=== PATIENT | female | born 1970 | race Caucasian/White ===

== ENCOUNTER 2020-06-20 08:06 | Emergency (ER) | payer SELFPAY ==
--- OUTSIDE RECORDS SUMMARY | 2020-06-20 08:30 | XMS REPORT | Clinical Summary ---
:1970 Author Organization [facility] Address [address] [place] [address] Care Team Providers Name Role Phone Baron Alejandre MD Primary Care Provider Allergies No Known Allergies Medications No known medications Active Problems Problem Noted Date Herniated nucleus pulposus 11/18/2017 Cervical stenosis of spine 11/18/2017 Herniated nucleus pulposus, cervical 11/17/2017 Cervical stenosis of spinal canal 11/17/2017 Immunizations Name Dates Previously Given Next Due Influenza Three-TIV PF 5+ YR 11/18/2017 Social History Tobacco Use Types Packs/Day Years Used Date Never Smoker Smokeless Tobacco: Never Used Alcohol Use Drinks/Week oz/Week Comments Yes 1 Glasses of wine 0.6 rare Sex Assigned at Date Recorded Not on file Job Start Date Occupation Industry Not on file Not on file Not on file Travel History Travel Start Travel End No recent travel history available. Last Filed Vital Signs Not on file Plan of Treatment Not on file Implants Implanted Type Area Home Health Aid Device Shelf Model / Identifier Expiration Serial / Date Lot Flseal Vhsd Full Strlprep 10ml [id number] - [id number] Cement/Fi Spine SWANSON:BIOSCI 01/07/2019 [id number] / Implanted: Qty: 1 on 11/17/2017 by Dilip Branham MD lle r/Adhe Cervical / sive [id number] Bone Grft Vitoss Ba2x 2.5cc - [id number] Cement/Fi Spine ORTHOVITA 10/27/2018 [id number] / Implanted: Qty: 1 on 11/17/2017 by Dilip Branham MD lle r/Adhe Cervical / sive [id number] Tritanium C Height 7mm Spine Spine RADHA SPINE 12/2021 [id number] / Implanted: Qty: 1 on 11/17/2017 by Dilip Branham MD Cervical / [id number] Tritanium C Height 6mm Spine Spine RADHA SPINE 10/2022 [id number] / Implanted: Qty: 1 on 11/17/2017 by Dilip Branham MD Cervical / [id number] Tritanium C Height 7mm Spine Spine RADHA SPINE [id number] / Implanted: Qty: 1 on 11/17/2017 by Dilip Branham MD Cervical / [id number] Plt Aviator 51mm 3 Level [id number] - [id number] Spine Spine STRY KER:RADHA [id number] / Implanted: Qty: 1 on 11/17/2017 by Dilip Branham MD Cervical SPINE / Scr Sd 14mm [id number] - [id number] Spine Spine RADHA:RAHDA [id number] / Implanted: Qty: 8 on 11/17/2017 by Dilip Branham MD Cervical ORTHOPAEDICS / Results Not on fileafter 06/20/2019 Insurance Payer Benefit Plan / Group Subscriber ID Type Phone [facility] CHOICE xxxxxxxxxxxx HMO/POS [id number] [phone] CHOICE EXCHANGE (Home) [address] [place] [id number] Advance Directives For more information, please contact:[address] [phone] Code Status Date Activated Date Inactivated Comments Full Code 11/17/2017 8:10 PM 11/18/2017 4:51 PM This code status was determined by: Patient
--- OUTSIDE RECORDS SUMMARY | 2020-06-20 08:31 | XMS REPORT | Continuity of Care Document ---
:1970 Author Organization [facility] t Address [address] [place] [address] Care Team Providers Name Role Phone Baron Alejandre MD Primary Care Physician Singer FARLEY Attending Clinician YOSSI LUEVANO Attending Clinician Unavailable YOSSI LUEVANO Admitting Clinician Unavailable Payers Payer Name Policy Type Policy Number Effective Date Expiration Date S ource Problems Condition Condition Condition Status Onset Resolution Last Treating Co mments Source Name Details Category Date Date Treatment Clinician Date Herniated Herniated Disease Active 2016-[address] [facility] Cervical Cervical Disease [facility] spine [facility] 00 Center Herniated Herniated Disease Active 2016-[address] [facility] nucleus nucleus 2-19 [facility] pulposus, pulposus, 00:[facility]: [facility]i hilario cervical cervical 00 Center Cervical Cervical Disease [facility] spinal of spinal 00:00: Medi hilario canal canal 00 Center Allergies, Adverse Reactions, Alerts Allergy Allergy Status Severity Reaction(s) Onset Inactive Treating Comm ents Source Name Type Date Date Clinician No Known DA Active [facility] 03-28 [facility] 00:00: Suzanne 00 [facility] Social History Social Habit Start Date Stop Date Quantity Comments Source Sex Assigned At [facility] Alcohol Comment 2017-10-30 2017-10-30 rare [facility] - 00:00:00 00:00:00 [facility] Smoking Status Start Date Stop Date Source Never smoker [facility] Medications This patient has no known medications. Immunizations Ordered Immunization Filled Immunization Date Status Commen ts Source Name Name Influenza Three-TIV 2017-11-18 Completed [facility] t [facility] - PF 5+ YR 00:00:00 [facility] Procedures This patient has no known procedures. Encounters Start End Encounter Admission Attending Care Care Encounter Source Date/Time Date/Time Type Type Clinicians Facility Department ID 2020-05-30 2020-05-30 Emergency [facility] [id number] 07:29:53 09:55:00 Andres Hanson [id number] [place] [id number] [place] [id number] Results Test Description Test Time Test Comments Results Result Comments Source UA RFLX MICROSCOPIC CULTURE 2019-03-28 14:29:00 Test Item Value Reference Range Interpretation Comme nts UA COLOR (test code = COLU) YELLOW YELLOW UA APPEARANCE (test code = HAZY CLEAR APPU) UA GLUCOSE DIPSTICK (test NEGATIVE mg/dL NEGATIVE code = DGLUU) UA BILIRUBIN DIPSTICK (test 1+ NEGATIVE A Not able to rule out false code = BILU) positive; No co nfirmatory test. UA KETONE DIPSTICK (test 5 mg/dL NEGATIVE A code = KETU) UA SPECIFIC GRAVITY (test 1.025 1.001-1.035 N code = SGU) UA BLOOD DIPSTICK (test code 3+ NEGATIVE A = GURPREET) UA PH DIPSTICK (test code = 5.0 5.5-7.0 L CHEN) UA PROTEIN DIPSTICK (test 25 mg/dL NEGATIVE A code = PROU) UA UROBILINOGEN DIPSTICK 1.0 mg/dL NORMAL (test code = URO) UA NITRITE DIPSTICK (test NEGATIVE NEGATIVE code = ЮЛИЯ) UA LEUKOCYTE ESTERASE 2+ NEGATIVE A DIPSTICK (test code = LEUU) UA COMMENT (test code = VOLUME 10-12 ML COMU) URINE SPECIMEN DESCRIPTION Clean Catch (test code = UASPEC) UA WBC (test code = WBCU) 10 - 20 #/hpf <10 A UA SQUAMOUS CELLS (test code 0 - 20 #/lpf <100 = SQU) UA CULTURE NEEDED? (test Criteria met code = UACULT) UA [id number] 14:29:00 Test Item Value Reference Range Interpretation Comments UA RBC (test code = RBCU) 2-5 #/hpf NONE SEEN A UA BACTERIA (test code = BACU) 1+ #/hpf NONE SEEN - US ABDOMEN [id number] 14:28:00 Patient Name: ROLANDO GARCIA Unit No: [id number] EXAMS: CPT CODE: [id number] US ABDOMEN LTD [id number] - US ABDOMEN LTD 03/28/2019 1:32 PM ULTRASOUND OF THE GALLBLADDER: Multiple images of the gallbladder were obtained. The gallbladder is well distended and has anormal wall thickness. There is no evidence of gallstones, sludge or pericholecystic fluid. Common bile duct measures 6 mm. The visualized liver, pancreas and right kidney are unremarkable. IMPRESSION: Normal gallbladder ultrasound. at 1428 Reported and signed by:Jaylen Ni MD CC: Jude Perkins MD Technologist: Franklin Ford Trnscrbd D/ (1425) [email or web address] Orig Print D/T: S: 03/28/2019 ([id number]) Probe: [facility] NAME: ROLANDO GARCIA [address] PHYS: [place] [address] : 1970 AGE:48 SEX: F LOC: [place]ONICA PHONE #: [phone] EXAM DATE: 03/28/2019 STATUS: REG ER FAX #: RAD NO: Page 1 Signed ReportCOMPREHENSIVE METABOLIC [id number] 14:21:00 Test Item Value Reference Range Interpretation Comments SODIUM (test code = 141 MMOL/L 133-145 N NA) POTASSIUM (test code = 3.8 MMOL/L 3.6-5.2 N K) CHLORIDE (test code = 104 MMOL/L 100-108 N CL) CARBON DIOXIDE (test 30 MMOL/L 22-32 N code = CO2) GLUCOSE (test code = 91 MG/DL 65-99 N Results of this assay GLU) method may be f alsely depressed orele vated if patient is t aking sulfasalazine. BLOOD UREA NITROGEN 16 MG/DL 6-20 N (test code = BUN) GLOMERULAR FILTRATION 75 58-135 N Report ing units: RATE (test code = GFR) mL/mi n/1.73m\\S\\2 (Modified MDRD Formula) CREATININE (test code 0.81 MG/DL 0.60-1.00 N = CREAT) TOTAL PROTEIN (test 7.7 G/DL 6.4-8.2 N code = PROT) ALBUMIN (test code = 4.2 G/DL 3.4-5.0 N ALB) GLOBULIN (test code = 3.5 G/DL 1.5-3.8 N GLOB) ALBUMIN/GLOBULIN RATIO 1.2 1.1-2.2 N (test code = A/G) CALCIUM (test code = 9.1 MG/DL 8.7-10.5 N CA) BILIRUBIN TOTAL (test 0.5 MG/DL 0.0-1.0 N code = BILT) SGOT/AST (test code = 29 Units/L 15-37 N Result s of this assay AST) method may be f alsely depressed orele vated if patient is t aking sulfasalazine. SGPT/ALT (test code = 62 Units/L 30-65 N Result s of this assay ALT) method may be f alsely depressed orele vated if patient is t aking sulfasalazine. ALKALINE PHOSPHATASE 86 Units/L 50-136 N TOTAL (test code = ALKP) [id number] 14:21:00 Test Item Value Reference Range Interpretation Comments LIPASE (test code = LIP) 224 Units/L 73-393 N HCG SERUM [id number] 14:19:00 Test Item Value Reference Range Interpretation Comments HCG SERUM QUAL NEGATIVE NEGATIVE False negativ es may occur (test code = when levels of hCGare below HCGQL) 10 mIU/ml. When is still suspec laury, a new specimenshould be obtained after 48 hours and re-tested.If wa iting 48 hours is not me dically advisable,the t est result should be confi rmed using aquantitative h CG assay. UA RFLX MICROSCOPIC [id number] 14:12:00 Test Item Value Reference Range Interpretation Comments UA COLOR (test code YELLOW YELLOW = COLU) UA APPEARANCE (test HAZY CLEAR code = APPU) UA GLUCOSE DIPSTICK NEGATIVE mg/dL NEGATIVE (test code = DGLUU) UA BILIRUBIN 1+ NEGATIVE A Not able to rul e DIPSTICK (test code out fals e positive; = BILU) No confirmatory test. UA KETONE DIPSTICK 5 mg/dL NEGATIVE A (test code = KETU) UA SPECIFIC GRAVITY 1.025 1.001-1.035 N (test code = SGU) UA BLOOD DIPSTICK 3+ NEGATIVE A (test code = GURPREET) UA PH DIPSTICK (test 5.0 5.5-7.0 L code = CHEN) UA PROTEIN DIPSTICK 25 mg/dL NEGATIVE A (test code = PROU) UA UROBILINOGEN 1.0 mg/dL NORMAL DIPSTICK (test code = URO) UA NITRITE DIPSTICK NEGATIVE NEGATIVE (test code = ЮЛИЯ) UA LEUKOCYTE 2+ NEGATIVE A ESTERASE DIPSTICK (test code = LEUU) UA COMMENT (test VOLUME 10-12 ML code = COMU) URINE SPECIMEN Clean Catch DESCRIPTION (test code = UASPEC) UA WBC (test code = #/hpf <10 WBCU) UA SQUAMOUS CELLS #/lpf <100 (test code = SQU) UA CULTURE NEEDED? (test code = UACULT) UA [id number] 14:12:00 Test Item Value Reference Range Interpretation Comments UA RBC (test code = RBCU) #/hpf NONE SEEN UA RFLX MICROSCOPIC [id number] 14:12:00 Test Item Value Reference Range Interpretation Comments UA COLOR (test code YELLOW YELLOW = COLU) UA APPEARANCE (test HAZY CLEAR code = APPU) UA GLUCOSE DIPSTICK NEGATIVE mg/dL NEGATIVE (test code = DGLUU) UA BILIRUBIN 1+ NEGATIVE A Not able to rul e DIPSTICK (test code out fals e positive; = BILU) No confirmatory test. UA KETONE DIPSTICK 5 mg/dL NEGATIVE A (test code = KETU) UA SPECIFIC GRAVITY 1.025 1.001-1.035 N (test code = SGU) UA BLOOD DIPSTICK 3+ NEGATIVE A (test code = GURPREET) UA PH DIPSTICK (test 5.0 5.5-7.0 L code = CHEN) UA PROTEIN DIPSTICK 25 mg/dL NEGATIVE A (test code = PROU) UA UROBILINOGEN 1.0 mg/dL NORMAL DIPSTICK (test code = URO) UA NITRITE DIPSTICK NEGATIVE NEGATIVE (test code = ЮЛИЯ) UA LEUKOCYTE 2+ NEGATIVE A ESTERASE DIPSTICK (test code = LEUU) UA COMMENT (test VOLUME 10-12 ML code = COMU) URINE SPECIMEN Clean Catch DESCRIPTION (test code = UASPEC) UA WBC (test code = #/hpf <10 WBCU) UA SQUAMOUS CELLS #/lpf <100 (test code = SQU) UA CULTURE NEEDED? (test code = UACULT) UA [id number] 14:12:00 Test Item Value Reference Range Interpretation Comments UA RBC (test code = RBCU) #/hpf NONE SEEN CBC W/AUTO [id number] 14:11:00 Test Item Value Reference Range Interpretation Comments WHITE BLOOD CELL (test code = 6.22 x10 3/uL 4.80-10.80 N WBC) RED BLOOD CELL (test code = 5.00 x10 6/uL 4.2-5.4 N RBC) HEMOGLOBIN (test code = HGB) 14.5 G/DL 12.0-16.0 N HEMATOCRIT (test code = HCT) 44.9 % 37-47 N MEAN CELL VOLUME (test code = 89.8 FL 81-99 N MCV) MEAN CELL HGB (test code = MCH) 29.0 PG 27-31 N MEAN CELL HGB CONCENTRATION 32.3 G/DL 33-37 L (test code = MCHC) RED CELL DISTRIBUTION WIDTH 13.0 % 11.5-14.5 N (test code = RDW) PLATELET COUNT (test code = 262 x10 3/uL 150-450 N PLT) MEAN PLATELET VOLUME (test code 10.5 FL 7.4-10.4 H = MPV) NEUTROPHIL % (test code = NT%) 52.9 % 42-86 N IMMATURE GRANULOCYTE % (test 0.3 % 0.0-2.0 N code = IG%) LYMPHOCYTE % (test code = LY%) 37.3 % 24-44 N MONOCYTE % (test code = MO%) 7.1 % 0.0-4.0 H EOSINOPHIL % (test code = EO%) 1.6 % 0.0-2.7 N BASOPHIL % (test code = BA%) 0.8 % 0.0-0.5 H NUCLEATED RBC % (test code = 0.0 % 0.0-0.0 N NRBC%) NEUTROPHIL # (test code = NT#) 3.29 x10 3/uL 1.8-7.7 N IMMATURE GRANULOCYTE # (test 0.02 x10 3/uL 0.00-0.03 N code = IG#) LYMPHOCYTE # (test code = LY#) 2.32 x10 3/uL 1.0-4.8 N MONOCYTE # (test code = MO#) 0.44 x10 3/uL 0.0-0.8 N EOSINOPHIL # (test code = EO#) 0.10 x10 3/uL 0.0-0.5 N BASOPHIL # (test code = BA#) 0.05 x10 3/uL 0.0-0.2 N NUCLEATED RBC # (test code = 0.0 X10 3/uL 0.0-0.2 N NRBC#) TISSUE [id number] 15:56:00Surgical Pathology Report Case: [id number] Authorizing Provider: Dilip Luevano MD Collected: 11/17/2017 1351 Ordering Location: [facility] Received: 11/17/2017 1431 SERVICES Pathologist: Randy Barroso MD Specimen: Disc C3-4, DISC FROM C3-6 VERTEBRAL COLUMN,INTERVERTEBRAL DISCS, C3- 6, DISCECTOMIES:FRAGMENTS OF FIBROCARTILAGE WITH MILD DEGENERATIVE CHANGES Signing Pathologist Direct Phone Line: [phone] signed by Randy Barroso MD on 11/19/2017 at 3:56 [id number]; [id number] nucleus pulposus of cervix. Cervical myelopathyDisc C3-4 and C3-6The specimen is received in saline labeled with the patient's information and labeled "disc C3-4 and C3-6" and consists of small portions of off white fibrocartilaginous tissue measuring 1 x 1 x 0.3 cm in aggregate. Submitted entirely A1 for decalcification. CG/pl PerformedNP, NEURO INTRAOPERATIVE [id number] 10:49:00Reason for exam:->cervical stenosisINTRAOPERATIVE MONITORING REPORT Patient Name: Rolando Garcia [facility] Surgery Date: 11/17/17 [place] Pro: [id number] Monitoring began at 11:19 and ended at 14:30 Surgeon: Dilip Luevano M.D. Examining Physician : Sheba Wooten M.D. Monitoring Technologist: KRISTA Krishna Procedure: ACDF C3-C6 Stimulation Parameters: Ulnar nerves individuallystimulated at the wrist Rate 3.63Hz, Intensity 30A, Duration 0.3ms Posterior Tibial nerves individually stimulated at the ankle Rate 3.63Hz, Intensity 60mA, Duration 0.3ms Filters 30-500Hz, Notch Off Recording Parameters: CV, CP3, CP4, CPz, and FPzFree-running EEG recorded with bipolar derivation, using modified International 10/20 placements: C3-FPZ, C4- FPZ Description: Intraoperative neurophysiological monitoring was performed using a combination of upper and lower extremity somatosensory evoked potentials, Free-running EEGs. A real-time connection with the examining neurologist was established and maintained throughout the operative procedure by the monitoring technologist. Upper extremity somatosensory evoked potentials were recorded centrally at the cervical and cortical levels following ulnar nerve stimulation. Lower extremity somatosensory evoked potentials were recorded centrally at the cervical and cortical levels following posterior tibial stimulation at the ankle. SSEP baselines were established and monitored throughout the duration of the procedure. At closing, responses were judged to be essentially unchanged from those of post-positioning baselines. Surgeon was aware of all responses in real-time. Free-running EEG remained symmetrical throughout the procedure with no focal changes noted to occur. Conclusion: These results suggest the absence of untoward, secondary effects on the posterior column function as a consequence of this surgical procedure. Sheba Wooten M.D.M50.0,M50.20 BASIC METABOLIC [id number] 08:26:00 Test Item Value Reference Range Interpretation Comments SODIUM (BEAKER) 134 meq/L 136-145 L (test code = 381) POTASSIUM (BEAKER) 3.7 meq/L 3.5-5.1 (test code = 379) CHLORIDE (BEAKER) 104 meq/L 98-107 (test code = 382) CO2 (BEAKER) (test 22 meq/L 22-29 code = 355) BLOOD UREA NITROGEN 10 mg/dL 7-21 (BEAKER) (test code = 354) CREATININE (BEAKER) 0.74 mg/dL 0.57-1.25 (test code = 358) GLUCOSE RANDOM 110 mg/dL 70-105 H (BEAKER) (test code = 652) CALCIUM (BEAKER) 8.5 mg/dL 8.4-10.2 (test code = 697) EGFR (BEAKER) (test 84 mL/min/1.73 ESTIMA LAURY GFR IS code = 1092) sq m NOT ACCURATE CREATININE CLEARANCE IN PREDICTING GLOMERULAR FILTRATION RATE . ESTIMATED GFR I S NOT APPLICABLE FOR DIALYSIS PATIEN TS. CBC W/PLT COUNT & AUTO [id number] 08:11:00 Test Item Value Reference Range Interpretation Comments WHITE BLOOD CELL COUNT (BEAKER) 10.4 K/ L 3.5-10.5 (test code = 775) RED BLOOD CELL COUNT (BEAKER) 4.37 M/ L 3.93-5.22 (test code = 761) HEMOGLOBIN (BEAKER) (test code = 12.5 GM/DL 11.2-15.7 410) HEMATOCRIT (BEAKER) (test code = 38.6 % 34.1-44.9 411) MEAN CORPUSCULAR VOLUME (BEAKER) 88.3 fL 79.4-94.8 (test code = 753) MEAN CORPUSCULAR HEMOGLOBIN 28.6 pg 25.6-32.2 (BEAKER) (test code = 751) MEAN CORPUSCULAR HEMOGLOBIN CONC 32.4 GM/DL 32.2-35.5 (BEAKER) (test code = 752) RED CELL DISTRIBUTION WIDTH 13.1 % 11.7-14.4 (BEAKER) (test code = 412) PLATELET COUNT (BEAKER) (test 220 K/CU MM 150-450 code = 756) MEAN PLATELET VOLUME (BEAKER) 11.1 fL 9.4-12.3 (test code = 754) NUCLEATED RED BLOOD CELLS 0 /100 WBC 0-0 (BEAKER) (test code = 413) NEUTROPHILS RELATIVE PERCENT 78 % (BEAKER) (test code = 429) LYMPHOCYTES RELATIVE PERCENT 15 % (BEAKER) (test code = 430) MONOCYTES RELATIVE PERCENT 7 % (BEAKER) (test code = 431) EOSINOPHILS RELATIVE PERCENT 0 % (BEAKER) (test code = 432) BASOPHILS RELATIVE PERCENT 0 % (BEAKER) (test code = 437) NEUTROPHILS ABSOLUTE COUNT 8.09 K/ L 1.56-6.13 H (BEAKER) (test code = 670) LYMPHOCYTES ABSOLUTE COUNT 1.58 K/ L 1.18-3.74 (BEAKER) (test code = 414) MONOCYTES ABSOLUTE COUNT (BEAKER) 0.69 K/ L 0.24-0.36 H (test code = 415) EOSINOPHILS ABSOLUTE COUNT 0.00 K/ L 0.04-0.36 L (BEAKER) (test code = 416) BASOPHILS ABSOLUTE COUNT (BEAKER) 0.01 K/ L 0.01-0.08 (test code = 417) IMMATURE GRANULOCYTES-RELATIVE 0 % 0-1 PERCENT (BEAKER) (test code = 2801) [place], PERSONAL LINES INSURANCE AGENT IN OR/30 MINUTE [id number] 14:09:00Reason for exam:- >cervical stenosisFINAL REPORT History: Cervical stenosis COMPARISON: None DISCUSSION: A total of 3 intraoperative images were submitted for interpretation. Neither was a radiologist present nor requested during the procedure. The findings should be correlated with intraprocedural observations. The images were presented for interpretation following completion of the examination. This is a nondiagnostic examination. The images demonstrate fixation of the C3-C6 levels anteriorly with plate and screws as well as a spacer material at the C3-4, C4-5 and C5-6 levels. Findings should be correlated with intraprocedural observations. The total fluoroscopy time was 0.0 minutes . A total of 3 static images were acquired. Signed: Alli Silva MDReport Verified Date/Time: 11/17/2017 14:09:04 Reading Location: [facility] C013 Consult Reading Room [place], PERSONAL LINES INSURANCE AGENT IN OR/30 MINUTE [id number] 12:28:00Reason for exam:- >cervical stenosisFINAL REPORT INDICATION: Cervical stenosis. COMPARISON: None available. IMPRESSION: A single fluoroscopic localization image of the cervical spine was provided. A surgical screw projects over the C4 vertebral body. Findings were reported to Dr. Luevano in OR 9 at 12:27 PM. The surgeon agrees with these findings. Fluoroscopy was not performed by the undersigned radiologist. Fluoroscopy dose: 0.177 mGy, 0.0453 Gy.cm2, 1 image Signed: Minal Osborneport Verified Date/Time: 11/17/2017 12:28:12 Reading Location: [facility] Radiology Reading Room [id number] 12:00:00 Test Item Value Reference Range Interpretation Comments PROTIME (BEAKER) (test code = 12.9 seconds 11.7-14.7 759) INR (BEAKER) (test code = 370) 1.0 <=5.9 PARTIAL THROMBOPLASTIN TIME 32.4 seconds 22.5-36.0 (BEAKER) (test code = 760) RECOMMENDED COUMADIN/WARFARIN INR THERAPY RANGESSTANDARD DOSE: 2.0 - 3.0 Includes: PROPHYLAXIS forvenous thrombosis, systemic embolization; TREATMENT for venous thrombosis and/or pulmonary embolus.HIGH RISK: Target INR is 2.5-3.5 for patients with mechanical heart valves.BASIC METABOLIC [id number] 11:59:00 Test Item Value Reference Range Interpretation Comments SODIUM (BEAKER) 139 meq/L 136-145 (test code = 381) POTASSIUM (BEAKER) 3.9 meq/L 3.5-5.1 (test code = 379) CHLORIDE (BEAKER) 106 meq/L 98-107 (test code = 382) CO2 (BEAKER) (test 28 meq/L 22-29 code = 355) BLOOD UREA NITROGEN 11 mg/dL 7-21 (BEAKER) (test code = 354) CREATININE (BEAKER) 0.71 mg/dL 0.57-1.25 (test code = 358) GLUCOSE RANDOM 88 mg/dL 70-105 (BEAKER) (test code = 652) CALCIUM (BEAKER) 9.1 mg/dL 8.4-10.2 (test code = 697) EGFR (BEAKER) (test 88 mL/min/1.73 ESTIMA LAURY GFR IS code = 1092) sq m NOT ACCURATE CREATININE CLEARANCE IN PREDICTING GLOMERULAR FILTRATION RATE . ESTIMATED GFR I S NOT APPLICABLE FOR DIALYSIS PATIEN TS. URINALYSIS W/ REFLEX URINE [id number] 11:55:00 Test Item Value Reference Range Interpretation Comments COLOR (BEAKER) (test code = 470) Yellow CLARITY (BEAKER) (test code = 469) Hazy SPECIFIC GRAVITY UA (BEAKER) (test 1.017 1.001-1.035 code = 468) PH UA (BEAKER) (test code = 467) 6.0 5.0-8.0 PROTEIN UA (BEAKER) (test code = 20 mg/dL Negative A 464) GLUCOSE UA (BEAKER) (test code = Negative Negative 365) KETONES UA (BEAKER) (test code = Negative Negative 371) BILIRUBIN UA (BEAKER) (test code = Negative Negative 462) BLOOD UA (BEAKER) (test code = 461) Negative Negative NITRITE UA (BEAKER) (test code = Negative Negative 465) LEUKOCYTE ESTERASE UA (BEAKER) Negative Negative (test code = 466) UROBILINOGEN UA (BEAKER) (test code 0.2 mg/dL 0.2-1.0 = 463) RBC UA (BEAKER) (test code = 519) 2 /HPF WBC UA (BEAKER) (test code = 520) 1 /HPF BACTERIA (BEAKER) (test code = 517) Rare MUCUS (BEAKER) (test code = 1574) Many SQUAMOUS EPITHELIAL (BEAKER) (test 8 /HPF code = 516) SOURCE(BEAKER) (test code = 2795) CBC W/PLT COUNT & AUTO [id number] 11:45:00 Test Item Value Reference Range Interpretation Comments WHITE BLOOD CELL COUNT (BEAKER) 4.4 K/ L 3.5-10.5 (test code = 775) RED BLOOD CELL COUNT (BEAKER) 4.84 M/ L 3.93-5.22 (test code = 761) HEMOGLOBIN (BEAKER) (test code = 13.7 GM/DL 11.2-15.7 410) HEMATOCRIT (BEAKER) (test code = 42.5 % 34.1-44.9 411) MEAN CORPUSCULAR VOLUME (BEAKER) 87.8 fL 79.4-94.8 (test code = 753) MEAN CORPUSCULAR HEMOGLOBIN 28.3 pg 25.6-32.2 (BEAKER) (test code = 751) MEAN CORPUSCULAR HEMOGLOBIN CONC 32.2 GM/DL 32.2-35.5 (BEAKER) (test code = 752) RED CELL DISTRIBUTION WIDTH 12.8 % 11.7-14.4 (BEAKER) (test code = 412) PLATELET COUNT (BEAKER) (test 237 K/CU MM 150-450 code = 756) MEAN PLATELET VOLUME (BEAKER) 10.9 fL 9.4-12.3 (test code = 754) NUCLEATED RED BLOOD CELLS 0 /100 WBC 0-0 (BEAKER) (test code = 413) NEUTROPHILS RELATIVE PERCENT 49 % (BEAKER) (test code = 429) LYMPHOCYTES RELATIVE PERCENT 41 % (BEAKER) (test code = 430) MONOCYTES RELATIVE PERCENT 6 % (BEAKER) (test code = 431) EOSINOPHILS RELATIVE PERCENT 3 % (BEAKER) (test code = 432) BASOPHILS RELATIVE PERCENT 1 % (BEAKER) (test code = 437) NEUTROPHILS ABSOLUTE COUNT 2.16 K/ L 1.56-6.13 (BEAKER) (test code = 670) LYMPHOCYTES ABSOLUTE COUNT 1.84 K/ L 1.18-3.74 (BEAKER) (test code = 414) MONOCYTES ABSOLUTE COUNT (BEAKER) 0.26 K/ L 0.24-0.36 (test code = 415) EOSINOPHILS ABSOLUTE COUNT 0.13 K/ L 0.04-0.36 (BEAKER) (test code = 416) BASOPHILS ABSOLUTE COUNT (BEAKER) 0.04 K/ L 0.01-0.08 (test code = 417) IMMATURE GRANULOCYTES-RELATIVE 0 % 0-1 PERCENT (BEAKER) (test code = 2801) RAD, CHEST, 2 [id number] 11:44:00Reason for Exam:->pre opFINAL REPORT History provided: Preoperative assessment CHEST PA AND LATERAL: Normal cardiomediastinal silhouette. Lungs are fully expanded and clear. CONCLUSION: Normal two-view chest examination. Signed: Amber Lares Verified Date/Time: 10/30/2017 11:44:26 Reading Location: [facility] Diagnostic Imaging Reading Room - [facility] 1.310.12
--- OUTSIDE RECORDS SUMMARY | 2020-06-20 08:32 | XMS REPORT | Summary of Care ---
:1970 Author Organization [facility] - [facility] Address [address] [place] [id number] Care Team Providers Name Role Phone Pcp, Patient Does Not Have A Primary Care Provider +[id number] Reason for Referral MRI/CAT Scan (STAT) Status Reason Specialty Diagnoses / Referred By Referred To Procedures Contact Contact New Request Diagnostic Diagnoses Upper abdominal pain Andres Rodríguez, Radiology Procedures CT ABDOMEN PELVIS W CONTRAST DO [address] [place] [address] [place] [id number] Reason for Visit Reason Comments Abdominal Pain Auth/Cert Status Reason Specialty Diagnoses / Referred By Referred To Procedures Contact Contact Emergency Medicine Diagnoses ABD PAIN [facility] [address] [place] [phone] Fax: Encounter Details Date Type Department Care Team Description 05/30/2020 Emergency [facility]-Emergency Andres Rodríguez DO Upper abdominal pain (Primary Dx); Department [address] [place] [address] Epigastric pain; [address] [place] [address] RT [address] [place] [address] [place] [address] [phone] Allergies No Known Allergiesdocumented as of this encounter (statuses as of 05/30/2020) Medications Medication Sig Dispensed Refills Start Date End Date Status sucralfate 1 gram Take 1 tablet by 30 tablet 0 05/30/2020 Active tabletIndications: mouth before Epigastric pain meals and at bedtime. dicyclomine (BENTYL) Take 1 capsule 30 capsule 0 05/30/2020 Active 10 mg by mouth every 8 capsuleIndications: (eight) hours as Epigastric pain needed for Abdominal pain. ondansetron 4 mg Take 1 tablet by 20 tablet 0 05/30/2020 Active disintegrating mouth every 8 tabletIndications: (eight) hours as Epigastric pain needed for Nausea and Vomiting (N/V). omeprazole 20 mg Take 1 capsule 30 capsule 0 05/30/20202019 Active capsuleIndications: by mouth daily Epigastric pain for 30 days. documented as of this encounter (statuses as of 05/30/2020) Active Problems No known active problemsdocumented as of this encounter (statuses as of 05/30/2020) Social History Tobacco Use Types Packs/Day Years Used Date Never Assessed Sex Assigned at Date Recorded Not on file Job Start Date Occupation Industry Not on file Not on file Not on file Travel History Travel Start Travel End No recent travel history available. COVID-19 Exposure Response Date Recorded In the last month, have you been in contact with No / Unsure 05/30/2020 7:24 AM CDT someone who was confirmed or suspected to have Coronavirus / COVID-19? documented as of this encounter Last Filed Vital Signs Vital Sign Reading Time Taken Comments Blood Pressure 129/80 05/30/2020 9:00 AM CDT Pulse 62 05/30/2020 9:00 AM CDT Temperature 36.7 C (98 F) 05/30/2020 7:26 AM CDT Respiratory Rate 12 05/30/2020 9:00 AM CDT Oxygen Saturation 97% 05/30/2020 9:00 AM CDT Inhaled Oxygen Concentration - - Weight 81.6 kg (180 lb) 05/30/2020 7:26 AM CDT Height 162.6 cm (5' 4") 05/30/2020 7:26 AM CDT Body Mass Index 30.9 05/30/2020 7:26 AM CDT documented in this encounter Discharge Instructions AttachmentsThe following attachments cannot be sent through Care Everywhere. Peptic Ulcer Disease (All Causes) (Malagasy)documented in this encounter Plan of Treatment Health Maintenance Due Date Last Done Comments DTaP,Tdap,and Td Vaccines (1 - 1980 Tdap) Depression Screening 1981 PAP SMEAR 1990 Breast Cancer Screening 2009 (MAMMOGRAM) COLONOSCOPY 2019 Zoster Recombinant Vaccine 2019 (SHINGRIX) (1 of 2) INFLUENZA VACCINE (#1) 2020 PNEUMOCOCCAL 0-64 YEARS COMBINED Aged Out No longer eligible based on SERIES patient's age to complete this topic documented as of this encounter Procedures Procedure Name Priority Date/Time Associated Comments Diagnosis CT ABDOMEN PELVIS W STAT 05/30/2020 8:49 Upper abdominal R esults for this CONTRAST AM CDT pain procedure are i n the results section. CBC WITH DIFFERENTIAL STAT 05/30/2020 7:56 Upper abdominal Results for this AM CDT pain procedure are i n the results section. URINALYSIS STAT 05/30/2020 7:56 Upper abdominal Results for this AM CDT pain procedure are i n the results section. CBC WITH DIFFERENTIAL STAT 05/30/2020 7:56 Upper abdominal Results for this AM CDT pain procedure are i n the results section. COMP. METABOLIC PANEL STAT 05/30/2020 7:56 Upper abdominal Results for this (40664) AM CDT pain procedure are i n the results section. LIPASE STAT 05/30/2020 7:56 Upper abdominal Results for this AM CDT pain procedure are i n the results section. documented in this encounter Results CT ABDOMEN PELVIS W CONTRAST (05/30/2020 8:49 AM CDT) Specimen Narrative Performed At CT Abdomen and Pelvis with intravenous c ontrast. PACS/VR/DOSE CLINICAL HISTORY: Generalized abdominal pain. DOSE: Up-to-date CT equipment and radiation dose reduc tion techniques were employed. CTDIvol: 9.18 mGy. DLP: 471 mGy-cm. TECHNIQUE : Contiguous axial imaging fro m the level of the lung bases through the pubic symphysis were perform ed after the uncomplicated administration of Omnipaque contrast mat erial. Coronal and sagittal reconstructions were obtained. Auto mA and/or iterativ e reconstruction were used to reduce radiation dose. FINDINGS: No prior study available for c omparison. Lower lungs: Clear. No pleural effusion or pericardial effusion. No definite evidence of hiatal hernia. Bila teral breast augmentation prosthesis are partially visualized. Liver, Gallbladder and Spleen: Normal. No gallstones v isualized. Liver is approximately 15.7 cm in length and sple en measures approximately 10.5 x 4.5 cm. Biliary ducts and the pancreatic duct appear of normal size. Peritoneum: No free air or free fluid. No lymphadenopathy. Pancreas and Adrenals: Unremarkable pa ncreas and adrenal glands. Kidneys and Ureters: No visible calculi in the renal collecting systems. No hydroureter or hydronephrosis. 9 mm l ow density lesion in the dorsal cortex at interpolar region of the right kidney and another 9 mm lesion along the lateral cortex near the lower pole of the right kidney noted, consistent with possibility of small inc idental renal cysts. Vessels: Normal. Retroperitoneum: No abnormal fluid or ly mphadenopathy. Bowel: No acute findings. Normal appendi x is visualized. Small bowel gas pattern is unremarkable. Bladder and Reproductive Organs: Grossly unremarkable poorly distended unopacified urinary bladder. Heterogeneously enhancing lesion of 18 mm size noted in the anterior wall of the body o f the uterus, consistent with a small fibroid. No suspicious adnexal mas ses. Minimal free fluid noted in the cul-de-sac. Bones: Moderate degenerative disc diseas e at L5-S1 with minimal retrolisthesis of L5 over S1. Prominent Schmorl's nodes are seen in the lower thoracic and upper lumbar vertebra l endplates which could be secondary to remote axial loading trauma . No acute compression fracture detected. No aggressive bone lesions visualized. Bone island noted in the neck of the left femur. No signs of AVN in the femoral heads. Soft tissues: Unremarkable. CONCLUSION: No acute intra-abdominal or pelvic pathology detected. Procedure Note [facility], Radiant Results Inft User - 2019 9:[address] Abdomen and Pelvis with intravenous contrast. CLINICAL HISTORY: Generalized abdominal pain. DOSE: Up-to-date CT equipment and radiat ion dose reduction techniques were employed. CTDIvol: 9.18 mGy. DLP: 471 mGy-cm. TECHNIQUE : Contiguous axial imaging fro m the level of the lung bases through the pubic symphysis were perform ed after the uncomplicated administration of Omnipaque contrast mat erial. Coronal and sagittal reconstructions were obtained. Auto mA a nd/or iterative reconstruction were used to reduce radiation dose. FINDINGS: No prior study available for c omparison. Lower lungs: Clear. No pleural effusion or pericardial effusion. No definite evidence of hiatal hernia. Bila teral breast augmentation prosthesis are partially visualized. Liver, Gallbladder and Spleen: Normal. N o gallstones visualized. Liver is approximately 15.7 cm in length and sple en measures approximately 10.5 x 4.5 cm. Biliary ducts and the pancreatic duct appear of normal size. Peritoneum: No free air or free fluid. No lymphadenopathy. Pancreas and Adrenals: Unremarkable chand creas and adrenal glands. Kidneys and Ureters: No visible calculi in the renal collecting systems. No hydroureter or hydronephrosis. 9 mm l ow density lesion in the dorsal cortex at interpolar region of the right kidney and another 9 mm lesion along the lateral cortex near the lower pole of the right kidney noted, consistent with possibility of small inc idental renal cysts. Vessels: Normal. Retroperitoneum: No abnormal fluid or ly mphadenopathy. Bowel: No acute findings. Normal appendi x is visualized. Small bowel gas pattern is unremarkable. Bladder and Reproductive Organs: Grossly unremarkable poorly distended unopacified urinary bladder. Heterogeneo usly enhancing lesion of 18 mm size noted in the anterior wall of the body o f the uterus, consistent with a small fibroid. No suspicious adnexal mas ses. Minimal free fluid noted in the cul-de-sac. Bones: Moderate degenerative disc diseas e at L5-S1 with minimal retrolisthesis of L5 over S1. Prominent Schmorl's nodes are seen in the lower thoracic and upper lumbar vertebra l endplates which could be secondary to remote axial loading trauma . No acute compression fracture detected. No aggressive bone lesions vis ualized. Bone island noted in the neck of the left femur. No signs of AVN in the femoral heads. Soft tissues: Unremarkable. CONCLUSION: No acute intra-abdominal or pelvic pathology detected. Performing Organization Address City/State/Zipcode Phone Number PACS/VR/DOSE CBC WITH DIFFERENTIAL (05/30/2020 7:56 AM CDT) Pathologist Sig nature WBC 5.23 4.30 - 11.10 [facility] 10*3/L [facility] RBC 4.82 3.93 - 5.25 [facility] 10*6/L [facility] HGB 13.3 11.6 - 15.0 g/dL [facility] HCT 41.0 35.7 - 45.2 % [facility] MCV 85.1 80.6 - 95.[address] [facility] MCH 27.6 25.9 - 32.[address] [facility] MCHC 32.4 31.6 - 35.1 g/dL [facility] RDW-SD 39.2 39.0 - 49.[address] [facility] RDW-CV 12.7 12.0 - 15.5 % [facility] PLT 222 166 - 358 [facility] 10*3/L [facility] MPV 10.9 9.5 - 12.[address] [facility] NRBC/100 WBC 0.0 0.0 - 10.0 /100 [facility] WBCs [facility] NRBC x10^3 <0.01 10*3/L [facility] GRAN MAT (NEUT) % 47.6 % [facility] IMM GRAN % 0.20 % [facility] LYMPH % 39.4 % [facility] MONO % 8.4 % [facility] EOS % 3.6 % [facility] BASO % 0.8 % [facility] GRAN MAT x10^3(ANC) 2.49 1.88 - 7.09 [facility] 10*3/uL [facility] IMM GRAN x10^3 <0.03 0.00 - 0.06 [facility] 10*3/uL [facility] LYMPH x10^3 2.06 1.32 - 3.29 [facility] 10*3/uL [facility] MONO x10^3 0.44 0.33 - 0.92 [facility] 10*3/uL [facility] EOS x10^3 0.19 0.03 - 0.39 [facility] 10*3/uL [facility] BASO x10^3 0.04 0.01 - 0.07 [facility] 10*3/uL [facility] Specimen Blood - ARM, RIGHT Performing Organization Address [facility]/Zipcode Phone Number [facility] CLIA: [id number], [address] [place], [place] [address] LIPASE (05/30/2020 7:56 AM CDT) [facility] LIPASE 103 0 - 220 U/L [facility] Specimen Blood - ARM, RIGHT Performing Organization Address City/[facility]/Zipcode Phone Number [facility] CLIA: [id number], [address] [place], [place] [address] URINALYSIS (05/30/2020 7:56 AM CDT) Pathologist Sig nature APPEARANCE Hazy (A) Clear [facility] COLOR Jen (A) Yellow [facility] PH 5.0 4.8 - 8.0 [facility] SP GRAVITY 1.027 1.003 - 1.030 [facility] GLU U QUAL Normal Normal [facility] BLOOD 1+ (A) Negative [facility] KETONES Negative Negative [facility] PROTEIN Negative Negative [facility] UROBILIN Normal Normal [facility] BILIRUBIN Negative Negative [facility] NITRITE Negative Negative [facility] LEUK TRINITY Negative Negative [facility] RBC/HPF 4 (H) 0 - [address] [facility] WBC/HPF 4 0 - [address] [facility] BACTERIA Few (A) Negative [facility] MUCOUS Marked (A) Negative LPF [facility] SQ EPITH [address] [facility] CA OXALATE 4 (H) <=[address] [facility] HYAL CAST 13 (H) <=[address] [facility] Specimen Urine - URINE, CLEAN CATCH Performing Organization Address City/State/[facility] Phone Number [facility] CLIA: [id number], [address] [place], [place] [address] COMP. METABOLIC PANEL (37446) (05/30/2020 7:56 AM CDT) Pathologist Sig nature NA 138 135 - 145 mmol/L [facility] K 3.8 3.5 - 5.0 mmol/L [facility] CL 104 98 - 108 mmol/L [facility] CO2 TOTAL 28 23 - 31 mmol/L [facility] AGAP 6 2 - 16 [facility] BUN 18 7 - 23 mg/dL [facility] GLUCOSE 107 70 - 110 mg/dL [facility] CREATININE 0.68 0.50 - 1.04 [facility] mg/dL [facility] TOTAL BILI 0.6 0.1 - 1.1 mg/dL [facility] CALCIUM 9.3 8.6 - 10.6 mg/dL [facility] T PROTEIN 7.4 6.3 - 8.2 g/dL [facility] ALBUMIN 4.4 3.5 - 5.0 g/dL [facility] ALK PHOS 74 34 - 122 U/L [facility] ALTv 20 5 - 35 U/L [facility] AST(SGOT) 26 13 - 40 U/L [facility] eGFR Calculation 91.2 mL/min/1.73m2 [facility] (Non-) [facility] Y eGFR Calculation 110.6 mL/min/1.73m2 [facility] () [facility] Specimen Blood - ARM, RIGHT Narrative Performed At Association of Glomerular Filtration Rate (GFR) [facility] and Staging of Kidney Disease* + + +- + | GFR (mL/min/1.73 m2) | With Kidney Damage | Without Kidney Damage + + +- + | >90 | Stage one | Normal + + +- + | 60-89 | Stage two | Decreased GFR + + +- + | 30-59 | Stage three | Stage three + + +- + | 15-29 | Stage four | Stage four + + +- + | <15 (or dialysis) | Stage five | Stage five + + +- + *Each stage assumes the associated GFR level has been in effect for at least three months. Stages 1 to 5, with or without kidney disease, indicate chronic kidney disease. Notes: Determination of stages one and two (with eGFR >59mL/min/1.73 m2) requires estimation of kidney damage for at least three months as defined by structural or functional abnormalities of the kidney, manifested by either: Pathological abnormalities or Markers of kidney damage (including abnormalities in the composition of the blood or urine or abnormalities in imaging tests). Performing Organization Address City/State/Zipcode Phone Number [facility] CLIA: [id number], [address] [place] [address] documented in this encounter Visit Diagnoses Diagnosis Upper abdominal pain - Primary Abdominal pain, other specified site Epigastric pain Abdominal pain, epigastric Peptic ulcer Peptic ulcer, unspecified site, unspecif ied as acute or chronic, without mention of hemorrhage, perforation, or obstruction documented in this encounter Administered Medications Medication Order MAR Action Action Date Dose Rate Site iohexol (OMNIPAQUE 350 BULK-150 Given 05/30/2020 8:40 AM CDT 12 0 mL mL) injection 120 mL 120 mL, Intravenous, ONCE, 1 dose, Thu05/30/20 at 0830, Routine maalox:diphenhydrAMINE:lidocaine2 %viscous Given 05/30/2020 9:3 1 AM CDT 15 mL 1:1:1: suspension (COMPOUNDED) 15 mL, Oral, ONCE, 1 dose, Thu05/30/20 at 1030, Routine documented in this encounter
[2020-06-20 08:42] LABS: Basophils % 0.9 % (0-1.3); Hematocrit 36.2 % (36.0-45.0); Lymphocytes % 39.3 % (15.3-44.8); RBC Red Blood Cell Count 4.37 M/uL (3.86-4.86)
[2020-06-20 08:57] LABS: ALT/SGPT 35 U/L (12-78); AST/SGOT 18 U/L (15-37); Albumin 3.4 g/dL (3.4-5.0); Alkaline Phosphatase 87 U/L (45-117); BUN Blood Urea Nitrogen 15 mg/dL (7-18); Bicarbonate 26 mmol/L (21-32); Bilirubin Direct < 0.1 mg/dL (0-0.2); Bilirubin Total 0.3 mg/dL (0.2-1.0); Glucose Level 80 mg/dL (74-106); Lipase 176 U/L (73-393); Potassium 3.6 mmol/L (3.5-5.1); Protein, Total 6.4 g/dL (6.4-8.2); Sodium Level 144 mmol/L (136-145)
--- NOTE | 2020-06-20 09:18 | RAD REPORT ---
EXAM DESCRIPTION: CTAbdomen Pelvis W Contrast - 06/20/2020 8:49 am CLINICAL HISTORY: Abdominal pain. ABD PAIN COMPARISON: No comparisons TECHNIQUE: Biphasic CT imaging of the abdomen and pelvis was performed with 100 ml non-ionic IV cont rast. All CT scans are performed using dose optimization technique as appropriate and may include automated exposure control or mA/KV adjustment according to patient size. FINDINGS: The lung bases are clear. Small irregular area of ulceration measuring 9-10 mm is suspected in the region of the distal stomach region. Small adjacent lymph nodes are present measuring up to 9 mm size. The liver, spleen, pancreas, adrenal glands and kidneys are within normal limits. Small benign bilate ral renal cysts. No bowel obstruction, free air, free fluid or abscess. The appendix is normal. No evidence of signi ficant lymphadenopathy. No suspicious bony findings. IMPRESSION: Small area of ulceration with adjacent lymph nodes seen distal stomach is noted. Upper e ndoscopy followup would be suggested if not recently performed for further evaluation. Elsewhere, no acute process is identified.
[2020-06-20] MEDS ORDERED: PANTOPRAZOLE 40 MG INJ ONE (09:21)
--- NOTE | 2020-06-20 09:50 | EDPHYS ---
Physician Documentation [facility] Name: Ashley Mora Age: 50 yrs Sex: Female : 1970 Arrival Date: 06/20/2020 Time: 08:14 Bed 7 Private MD: ED Physician Brock Hidalgo HPI: 06/20 09:25 This 50 yrs old Female presents to ER via EMS with complaints of Abdominal kb Pain, Nausea, Headache. 09:25 The patient presents with abdominal pain in the upper abdomen. Onset: The kb symptoms/episode began/occurred 2 week(s) ago. The symptoms do not radiate. Associated signs and symptoms: Pertinent positives: fever, nausea. The symptoms are described as constant. Modifying factors: The symptoms are alleviated by nothing, the symptoms are aggravated by nothing. Severity of pain: At its worst the pain was moderate in the emergency department the pain is unchanged. The patient has not experienced similar symptoms in the past. The patient has been recently seen by a physician: the ER physician, out of Town, 2 week(s) ago, with similar presenting complaints, and apparently given a diagnosis of ulcers. Historical: - Allergies: 08:21 No Known Allergies; sv - PMHx: 08:21 Anxiety; sv - Immunization history:: Adult Immunizations unknown. - Social history:: Smoking status: unknown. ROS: 09:24 Constitutional: Negative for fever, chills, and weight loss, Cardiovascular: Negative kb for chest pain, palpitations, and edema, Respiratory: Negative for shortness of breath, cough, wheezing, and pleuritic chest pain, Back: Negative for injury and pain, MS/Extremity: Negative for injury and deformity, Skin: Negative for injury, rash, and discoloration. 09:24 Abdomen/GI: Positive for abdominal pain, nausea. 09:24 Neuro: Positive for headache. Exam: 09:24 Constitutional: This is a well developed, well nourished patient who is awake, alert, kb and in no acute distress. Head/Face: Normocephalic, atraumatic. Chest/axilla: Normal chest wall appearance and motion. Nontender with no deformity. No lesions are appreciated. Cardiovascular: Regular rate and rhythm with a normal S1 and S2. No gallops, murmurs, or rubs. Normal PMI, no JVD. No pulse deficits. Respiratory: Lungs have equal breath sounds bilaterally, clear to auscultation and percussion. No rales, rhonchi or wheezes noted. No increased work of breathing, no retractions or nasal flaring. Skin: Warm, dry with normal turgor. Normal color with no rashes, no lesions, and no evidence of cellulitis. MS/ Extremity: Pulses equal, no cyanosis. Neurovascular intact. Full, normal range of motion. Neuro: Awake and alert, GCS 15, oriented to person, place, time, and situation. Cranial nerves II-XII grossly intact. Motor strength 5/5 in all extremities. Sensory grossly intact. Cerebellar exam normal. Normal gait. 09:24 Abdomen/GI: Inspection: abdomen appears normal, Bowel sounds: normal, in all quadrants, Palpation: soft, in all quadrants, moderate abdominal tenderness, in the right upper quadrant and left upper quadrant. Vital Signs: 08:18 BP 108 / 80; Pulse 70; Resp 16; Temp 98.2; Pulse Ox 97% ; Pain 8/10; sv MDM: 08:14 Patient medically screened. kb 09:23 Data reviewed: vital signs, nurses notes. Data interpreted: Pulse oximetry: on room air kb is 97 %. Interpretation: normal. Counseling: I had a detailed discussion with the patient and/or guardian regarding: the historical points, exam findings, and any diagnostic results supporting the discharge/admit diagnosis, lab results, radiology results, the need for outpatient follow up, a assessment nurse practitioner, to return to the emergency department if symptoms worsen or persist or if there are any questions or concerns that arise at home. 06/20 08:15 Order name: Basic Metabolic Panel; Complete Time: 08:58 kb 06/20 08:15 Order name: CBC with Diff; Complete Time: 08:58 kb 06/20 08:15 Order name: Hepatic Function; Complete Time: 08:58 kb 06/20 08:15 Order name: Lipase; Complete Time: 08:58 kb 06/20 08:15 Order name: CT Abd/Pelvis - IV Contrast Only; Complete Time: 09:23 kb 06/20 09:05 Order name: CREATININE WHOLE BLOOD; Complete Time: 09:09 EDMS 06/20 08:15 Order name: IV Saline Lock; Complete Time: 08:32 kb 06/20 08:15 Order name: Labs collected and sent; Complete Time: 08:32 kb Administered Medications: 09:13 Drug: ProTONIX 40 mg Route: IVP; Site: right antecubital; em 10:30 Follow up: Response: No adverse reaction em 10:32 Drug: GI Cocktail without - (Maalox Suspension 30 ml, Lidocaine Liquid 2 % 15 em ml) Route: PO; Disposition: 17:35 Co-signature as Attending Physician, Brock Hidalgo MD. rn Disposition: 06/20/20 09:49 Discharged to Home. Impression: Upper abdominal pain, unspecified. - Condition is Stable. - Discharge Instructions: Abdominal Pain, Adult, Peptic Ulcer, [id number]. - Work release form, Medication Reconciliation Form, Thank You Letter, Antibiotic Education, Prescription Opioid Use form. - Follow up: Emergency Department; When: As needed; Reason: Worsening of condition. Follow up: Private Physician; When: 2 - 3 days; Reason: Recheck today's complaints, Continuance of care, Re-evaluation by your physician. Signatures: Dispatcher [employer] EDNanci Rodriguez, ROBERTO CARLOS-C INSTRUMENTATION FITTER-Maddy Murray, RN RN Xander Vivar RN RN Brock Linder MD MD garnett room worker: (The following items were deleted from the chart) 10:40 09:49 06/20/2020 09:49 Discharged to Home. Impression: Upper abdominal pain, em unspecified. Condition is Stable. Forms are Medication Reconciliation Form, Thank You Letter, Antibiotic Education, Prescription Opioid Use. Follow up: Emergency Department; When: As needed; Reason: Worsening of condition. Follow up: Private Physician; When: 2 - 3 days; Reason: Recheck today's complaints, Continuance of care, Re-evaluation by your physician. kb
--- NOTE | 2020-06-20 09:50 | ER ---
Nurse's Notes [facility] Name: Ashley Mora Age: 50 yrs Sex: Female : 1970 Arrival Date: 06/20/2020 Time: 08:14 Bed 7 Private MD: Diagnosis: Upper abdominal pain, unspecified Presentation: 06/20 08:18 Chief complaint: EMS states: 1st day back at work since being quarantined d/t having a sv COVID test (NEGATIVE result). Was seen at [facility] on 06/05 and dc'd with dx of ulcer. Today around 0430 started having abd pain/nausea/headache/SOB/lightheadedness. Went to medical, stood up and started felt like she was going to pass out. 20G R AC and Zofran 4mg IVP given. Coronavirus screen: Patient denies a cough. Patient reports shortness of breath or difficulty breathing. Patient denies measured and/or subjective temperature greater than 100.4F prior to today's visit. Patient denies travel on a cruise ship or to a country the [facility] currently lists as an affected area. Patient denies contact with known and/or suspected case of COVID-19. Proceed with normal triage. Patient instructed to continue to wear a mask when interacting with others. Patient moved to private room, placed in contact and droplet isolation with eye protection until further assessment. Prior COVID test collected on: 06/05/20 NEGATIVE. Ebola Screen: No symptoms or risks identified at this time. Initial Sepsis Screen: Does the patient meet any 2 criteria? No. Patient's initial sepsis screen is negative. Does the patient have a suspected source of infection? No. Patient's initial sepsis screen is negative. Risk Assessment: Do you want to hurt yourself or someone else? Patient reports no desire to harm self or others. Onset of symptoms was June 20, 2020. 08:18 Method Of Arrival: EMS: [facility] sv 08:18 Acuity: [facility] 3 sv Triage Assessment: 08:21 General: Appears in no apparent distress. uncomfortable, well developed, Behavior is sv calm, cooperative, appropriate for age. Pain: Complains of pain in right upper quadrant, left upper quadrant and left lower quadrant Pain currently is 8 out of 10 on a pain scale. Neuro: Level of Consciousness is awake, alert, obeys commands, Oriented to person, place, time, situation, Moves all extremities. Full function Speech is normal, Reports headache. Respiratory: Airway is patent Respiratory effort is even, unlabored, Respiratory pattern is regular, symmetrical. GI: Patient currently denies nausea. Derm: Skin is normal. Historical: - Allergies: 08:21 No Known Allergies; sv - PMHx: 08:21 Anxiety; sv - Immunization history:: Adult Immunizations unknown. - Social history:: Smoking status: unknown. Screenin:22 Abuse screen: Denies threats or abuse. Denies injuries from another. Nutritional sv screening: No deficits noted. Tuberculosis screening: No symptoms or risk factors identified. Fall Risk None identified. Assessment: 08:35 General: Appears in no apparent distress. comfortable, Behavior is calm, cooperative, em appropriate for age, Denies fever. Pain: Complains of pain in right upper quadrant Pain currently is 8 out of 10 on a pain scale. Neuro: Level of Consciousness is awake, alert, obeys commands, Oriented to person, place, time, situation, Appropriate for age Reports a syncopal episode. Cardiovascular: Capillary refill < 3 seconds Patient's skin is warm and dry. Respiratory: Airway is patent Respiratory effort is even, unlabored, Respiratory pattern is regular, symmetrical. GI: Abdomen is flat, Bowel sounds present X 4 quads. Abd is soft X 4 quads Abdomen is tender to palpation in right upper quadrant. Derm: Skin is intact, is healthy with good turgor, Skin is pink, warm \T\ dry. Musculoskeletal: Capillary refill < 3 seconds, Range of motion: intact in all extremities. Vital Signs: 08:18 BP 108 / 80; Pulse 70; Resp 16; Temp 98.2; Pulse Ox 97% ; Pain 8/10; sv ED Course: 08:14 Patient arrived in ED. kb 08:14 Nanci Moreno FNP-C [facility]. kb 08:14 Brock Hidalgo MD is Attending Physician. kb 08:17 Maddy Brunner, DIANA is Primary Nurse. sv 08:20 Triage completed. sv 08:21 Arm band placed on. sv 08:22 Patient has correct armband on for positive identification. Bed in low position. Call sv light in reach. Side rails up X2. Pulse ox on. NIBP on. Door closed. Head of bed elevated. 08:22 Maintain EMS IV. Dressing intact. Site clean \T\ dry. Gauge \T\ site: 20G R AC. sv 08:50 CT Abd/Pelvis - IV Contrast Only In Process Unspecified. EDMS 10:37 No provider procedures requiring assistance completed. IV discontinued, intact, em bleeding controlled, No redness/swelling at site. Pressure dressing applied. Administered Medications: 09:13 Drug: ProTONIX 40 mg Route: IVP; Site: right antecubital; em 10:30 Follow up: Response: No adverse reaction em 10:32 Drug: GI Cocktail without - (Maalox Suspension 30 ml, Lidocaine Liquid 2 % 15 em ml) Route: PO; Outcome: 09:49 Discharge ordered by . kb 10:40 Discharged to home ambulatory. em 10:40 Condition: good 10:40 Discharge instructions given to patient, Instructed on discharge instructions, follow up and referral plans. Demonstrated understanding of instructions, follow-up care. 10:40 Patient left the ED. em Signatures: Dispatcher [employer] EDNanci Rodriguez, ROBERTO CARLOS-Bobo AZEVEDO-Maddy Murray, RN RN Xander Miller, RN RN em
[2020-06-20] MEDS ORDERED: MAGNE/ALUM HYDROXD 30 ML UCUP ONE (10:37)
[2020-06-20] MEDS ORDERED: LIDOCAINE VISCOUS 2% SOLN 15 ML UDC ONE (10:37)
[2020-06-20 20:26] VITALS: BP 108/80; TEMP 98.2; O2SAT 97
== END 2020-06-20 10:40 | disposition home or self-care (01) ==
LOC: ER 08:06
DX: R10.10 Upper abdominal pain, unspecified (principal)
CPT/HCPCS: 36415; 74177; 80048; 80076; 82565; 83690; 85025; 96374; 99284; C9113; Q9967

== ENCOUNTER 2022-08-27 09:17 | Emergency (ER) | payer OTHER, SELFPAY ==
--- OUTSIDE RECORDS SUMMARY | 2022-08-27 09:23 | XMS REPORT | Continuity of Care Document ---
:1970 Author Organization [facility] t Address [address] [place] [address] Care Team Providers Name Role Phone None, None Primary Care Physician Unavailable ROBE HILL Attending Clinician Unavailable GURINDER JETT Attending Clinician Unavailable MIGUEL ANGEL Attending Clinician Unavailable CLARENCE BONILLA Attending Clinician Unavailable Clarence Freeman Attending Clinician Herbert Reeves MD Attending Clinician HERBERT REEVES Attending Clinician Unavailable Pauline ORTIZ, Osiris Attending Clinician Unavailable [facility] (Not Attending Clinici an [facility] Christ PAC, K Angelique Attending Clinician Néstor Rodríguez DO Attending Clinician NÉSTOR RODRÍGUEZ Attending Clinician Unavailable DILIP LUEVANO Attending Clinician Unavailable MIGUEL ANGEL Admitting Clinician Unavailable DILIP LUEVANO Admitting Clinician Unavailable Payers Payer Name Policy Type Policy Number Effective Date Expiration Date Sekou PORTER SADDLE BROOK [id number] 2021 HEALTH PLAN 00:00:00 RADHA PORTER FROM [id number] 2021 [facility] 00:00:00 Problems Condition Condition Condition Status Onset Resolution Last Treating Co mments Source Name Details Category Date Date Treatment Clinician Date Herniated Herniated Disease Active 2016-[address] [facility] Cervical Cervical Disease [facility] spine 00:[facility] Medica l 00 Center Herniated Herniated Disease Active 2016-[address] [facility] [address] [facility] nucleus 2-19 [facility], pulposus, 00:00: Medi hilario cervical cervical 00 Center Cervical Cervical Disease Active 2016[facility] stenosis [facility] spinal of spinal 00:00: Medi hilario canal canal 00 Center No known No known Disease Unive rs active active ity of problems problems [facility] Allergies, Adverse Reactions, Alerts Allergy Allergy Status Severity Reaction(s) Onset Inactive Treating Comm ents Source Name Type Date Date Clinician No Known DA Active [facility] Allergie 4-29 [facility] 00:[facility]: [facility] NO KNOWN Drug Active Univers ALLERGIE Class ity of S [facility] Social History Social Habit Start Date Stop Date Quantity Comments Source Exposure to Yes University of SARS-CoV-2 [place] [facility] (event) Branch History SDOH [facility] Alcohol Frequency Medical Center History SDOH [facility] Alcohol Std Medical Cente r Drinks History SDOH [facility] Alcohol Binge Medical [address] Alcohol intake 2017-11-18 2017-11-18 [facility] (finding) Alcohol Comment 2017-10-30 2017-10-[address] [facility] [address] [facility] Tobacco use and 2017-10-30 2017-10-[address] [facility] exposure 00:00:00 00:00:00 Medical Center Sex [birth year] STEPHANIE Frost 00:00:00 00:00:00 [facility] Center Smoking Status Start Date Stop Date Source [facility] smoked tobacco [facility] Unknown if ever smoked [facility] Medications Ordered Filled Start Stop Current Ordering Indication Dosage Frequency Signature Comments Components Source Medication Medication Date Date Medication? Clinician (SIG) Name Name cycloSPORIN 2021- Yes [id number] 100mg Q.5D Take 1 [facility] modified 08-08 capsule Healt h (Neoral) 00:00: 04:59 (100 mg 100 MG 00 :00 total) by capsule mouth in the morning and 1 capsule (100 mg total) in the evening. cycloSPORIN 2021- Yes [id number] 100mg Q.5D Take 1 [facility] E modified 07-11 capsule Healt h (Neoral) 00:00: 04:59 (100 mg 100 MG 00 :00 total) by capsule mouth in the morning and 1 capsule (100 mg total) in the evening. cycloSPORIN 2021- No [id number] 100mg Q.5D Take 1 [facility] E modified 07-11 capsule Healt h (Neoral) 00:00: 00:00 (100 mg 100 MG 00 :00 total) by capsule mouth in the morning and 1 capsule (100 mg total) in the evening. zolpidem Yes TAKE 1/2 UT (Ambien) 10 6-01 TO 1 Health MG tablet 00:00: TABLET BY 00 MOUTH DAILY AT BEDTIME zolpidem 2021-0 Yes TAKE 1/2 UT (Ambien) 10 6-01 TO 1 Health MG tablet 00:00: TABLET BY 00 MOUTH DAILY AT BEDTIME zolpidem 2021-0 Yes TAKE 1/2 UT (Ambien) 10 6-01 TO 1 Health MG tablet 00:00: TABLET BY 00 MOUTH DAILY AT BEDTIME iopamidol 2020- No [id number] 100mL 100 mL, Univers (ISOVUE 07-28 Intravenou ity o f 370-500 mL) 15:45: 15:46 s, ONCE, 1 [place] injection 00 :00 dose, Sun Medic al 100 mL 07/28/21 at Branch 1100, Routine iopamidol 2020- No [id number] 100mL 100 mL, Univers (ISOVUE -28 07- Intravenou ity o f 370-500 mL) 15:45: 15:46 s, ONCE, 1 [place] injection 00 :00 dose, Sun Medic al 100 mL 07/28/21 at Branch 1100, Routine amoxicillin 2020-0 Yes [id number] 1{tbl} Take 1 Univers -clavulanat 8-29 tablet by ity of e 875-125 00:00: mouth [place] mg per 00 every 12 Medical tablet (twelve) Branch hours. loratadine 2020-0 Yes [id number] 10mg Take 1 Univers 10 mg 8-29 tablet by ity of tablet 00:00: mouth at [place] 00 bedtime as Medical needed for Branch Allergies. montelukast 2020-0 Yes [id number] 10mg Take 1 Univers 10 mg 8-29 tablet by ity of tablet 00:00: mouth [place] 00 every 24 Medical (twenty-fo Branch ur) hours as needed (symptoms) . benzonatate 2020-0 Yes [id number] 100mg Take 1 Univers 100 mg 8-29 capsule by ity of capsule 00:00: mouth 3 [place] 00 (three) Medical times Branch daily as needed for Cough. amoxicillin 2020-0 Yes [id number] 1{tbl} Take 1 Univers -clavulanat 8-29 tablet by ity of e 875-125 00:00: mouth [place] mg per 00 every 12 Medical tablet (twelve) Branch hours. loratadine 2020-0 Yes [id number] 10mg Take 1 Univers 10 mg 8-29 tablet by ity of tablet 00:00: mouth at [place] 00 bedtime as Medical needed for Branch Allergies. montelukast 2020-0 Yes [id number] 10mg Take 1 Univers 10 mg 8-29 tablet by ity of tablet 00:00: mouth [place] 00 every 24 Medical (twenty-fo Branch ur) hours as needed (symptoms) . benzonatate 2020-0 Yes [id number] 100mg Take 1 Univers 100 mg 8-29 capsule by ity of capsule 00:00: mouth 3 [place] 00 (three) Medical times Branch daily as needed for Cough. amoxicillin 2020-0 Yes [id number] 1{tbl} Take 1 Univers -clavulanat 8-29 tablet by ity of e 875-125 00:00: mouth [place] mg per 00 every 12 Medical tablet (twelve) Branch hours. loratadine Yes [id number] 10mg Take 1 Univers 10 mg 8-29 tablet by ity of tablet 00:00: mouth at [place] 00 bedtime as Medical needed for Branch Allergies. montelukast Yes [id number] 10mg Take 1 Univers 10 mg 8-29 tablet by ity of tablet 00:00: mouth [place] 00 every 24 Medical (twenty-fo Branch ur) hours as needed (symptoms) . benzonatate Yes [id number] 100mg Take 1 Univers 100 mg 8-29 capsule by ity of capsule 00:00: mouth 3 [place] 00 (three) Medical times Branch daily as needed for Cough. maalox:diph 2019-0 2020- No 15mL 15 mL, Uni vers enhydrAMINE 05-30 Oral, ity of :lidocaine2 15:30: 14:31 [place] %viscous 00 :00 dose, Wed Medica l 1:1:1: 05/30/20 at [place] suspension 1030, (COMPOUNDED Routine ) iohexol 2019-0 2020- No 120mL 120 mL, Unive rs (OMNIPAQUE 05-30 Intravenou it y of 350 13:30: 13:40 s, ONCE, 1 [place] BULK-150 00 :00 dose, Wed Medica l mL) 05/30/20 at [place] injection 0830, 120 mL Routine sucralfate 2019-0 Yes [id number] 1g Take 1 U nivers 1 gram 7- tablet by ity of tablet 00:00: mouth [place] 00 before Medical meals and Branch at bedtime. dicyclomine 2019-0 Yes [id number] 10mg Take 1 Univers (BENTYL) 10 - capsule by it y of mg capsule 00:00: mouth [place] 00 every 8 Medical (eight) Branch hours as needed for Abdominal pain. ondansetron 2019-0 Yes [id number] 4mg Take 1 Univers 4 mg 7-01 tablet by ity of disintegrat 00:00: mouth [place] ing tablet 00 every 8 Medica l (eight) Branch hours as needed for Nausea and Vomiting (N/V). sucralfate 2019-0 Yes [id number] 1g Take 1 U nivers 1 gram 7- tablet by ity of tablet 00:00: mouth [place] 00 before Medical meals and Branch at bedtime. dicyclomine 2020-0 Yes [id number] 10mg Take 1 Univers (BENTYL) 10 7-01 capsule by it y of mg capsule 00:00: mouth [place] 00 every 8 Medical (eight) Branch hours as needed for Abdominal pain. ondansetron 2020-0 Yes [id number] 4mg Take 1 Univers 4 mg 7-01 tablet by ity of disintegrat 00:00: mouth [place] ing tablet 00 every 8 Medica l (eight) Branch hours as needed for Nausea and Vomiting (N/V). sucralfate 2020-0 Yes [id number] 1g Take 1 U nivers 1 gram 7-01 tablet by ity of tablet 00:00: mouth [place] 00 before Medical meals and Branch at bedtime. dicyclomine 2020-0 Yes [id number] 10mg Take 1 Univers (BENTYL) 10 7-01 capsule by it y of mg capsule 00:00: mouth [place] 00 every 8 Medical (eight) Branch hours as needed for Abdominal pain. ondansetron 2020-0 Yes [id number] 4mg Take 1 Univers 4 mg 7-01 tablet by ity of disintegrat 00:00: mouth [place] ing tablet 00 every 8 Medica l (eight) Branch hours as needed for Nausea and Vomiting (N/V). sucralfate 2020-0 Yes [id number] 1g Take 1 U nivers 1 gram 7-01 tablet by ity of tablet 00:00: mouth [place] 00 before Medical meals and Branch at bedtime. dicyclomine 2020-0 Yes [id number] 10mg Take 1 Univers (BENTYL) 10 7-01 capsule by it y of mg capsule 00:00: mouth [place] 00 every 8 Medical (eight) Branch hours as needed for Abdominal pain. ondansetron 2020-0 Yes [id number] 4mg Take 1 Univers 4 mg 7-01 tablet by ity of disintegrat 00:00: mouth [place] ing tablet 00 every 8 Medica l (eight) Branch hours as needed for Nausea and Vomiting (N/V). sucralfate 2020-0 Yes [id number] 1g Take 1 U nivers 1 gram 7-01 tablet by ity of tablet 00:00: mouth [place] 00 before Medical meals and Branch at bedtime. dicyclomine 2020-0 Yes [id number] 10mg Take 1 Univers (BENTYL) 10 7-01 capsule by it y of mg capsule 00:00: mouth [place] 00 every 8 Medical (eight) Branch hours as needed for Abdominal pain. ondansetron 2020-0 Yes [id number] 4mg Take 1 Univers 4 mg 7-01 tablet by ity of disintegrat 00:00: mouth [place] ing tablet 00 every 8 Medica l (eight) Branch hours as needed for Nausea and Vomiting (N/V). sucralfate 2020-0 Yes [id number] 1g Take 1 U nivers 1 gram 7-01 tablet by ity of tablet 00:00: mouth [place] 00 before Medical meals and Branch at bedtime. dicyclomine 2020-0 Yes [id number] 10mg Take 1 Univers (BENTYL) 10 7-01 capsule by it y of mg capsule 00:00: mouth [place] 00 every 8 Medical (eight) Branch hours as needed for Abdominal pain. ondansetron 2020-0 Yes [id number] 4mg Take 1 Univers 4 mg 7-01 tablet by ity of disintegrat 00:00: mouth [place] ing tablet 00 every 8 Medica l (eight) Branch hours as needed for Nausea and Vomiting (N/V). sucralfate 2020-0 Yes [id number] 1g Take 1 U nivers 1 gram 7-01 tablet by ity of tablet 00:00: mouth [place] 00 before Medical meals and Branch at bedtime. dicyclomine 2020-0 Yes [id number] 10mg Take 1 Univers (BENTYL) 10 7-01 capsule by it y of mg capsule 00:00: mouth [place] 00 every 8 Medical (eight) Branch hours as needed for Abdominal pain. ondansetron 2020-0 Yes [id number] 4mg Take 1 Univers 4 mg 7-01 tablet by ity of disintegrat 00:00: mouth [place] ing tablet 00 every 8 Medica l (eight) Branch hours as needed for Nausea and Vomiting (N/V). omeprazole 2020-0 2020- No [id number] 20mg Take 1 Univers 20 mg 7-01 08-01 capsule by ity of capsule 00:00: 04:59 mouth [place] 00 :00 daily for Medical 30 days. Branch Immunizations Ordered Immunization Filled Immunization Date Status Commen ts Source Name Name Influenza Three-TIV 2017-11-18 Completed [facility] Vital Signs Vital Name Observation Time Observation Value Comments Source Systolic blood 2022-08-08 17:16:00 128 mm[Hg] [facility] Diastolic blood 2022-08-08 17:16:00 88 mm[Hg] [facility] Heart rate 2022-08-08 17:16:00 62 /min [facility] Systolic blood 2022-07-08 17:31:00 111 mm[Hg] [facility] Diastolic blood 2022-07-08 17:31:00 75 mm[Hg] [facility] Heart rate 2022-07-08 17:31:00 83 /min [facility] 2022-07-08 17:31:00 36.17 Francia [facility] Body height 2022-07-08 17:31:00 [facility] 2022-07-08 17:31:00 89.631 [facility] BMI 2022-07-08 17:31:00 32.88 kg/m2 [facility] Systolic blood 2021-12-13 16:28:00 133 mm[Hg] [facility] Diastolic blood 2021-12-13 16:28:00 89 mm[facility]Hg] [facility] 2021-12-13 16:28:00 76 /min [facility] Body temperature 2021-12-13 16:28:00 36.44 Francia [facility] Respiratory rate 2021-12-13 16:28:00 18 /min [facility] Body height 2021-12-13 16:28:00 165.1 cm [facility] Body weight 2021-12-13 16:28:00 86.637 kg [facility] BMI 2021-12-13 16:28:00 31.78 kg/m2 [facility] Oxygen saturation in 2021-12-13 16:28:00 97 /min [facility] Arterial blood by [facility] Pulse oximetry Branch Systolic blood 2021-07-28 16:00:00 126 mm[Hg] Univer [facility]ity of [facility] Diastolic blood 2021-07-28 16:00:00 82 mm[Hg] Unive rsity of pressure [place] [facility] Heart rate 2021-07-28 16:00:00 75 /min [facility] [place] [facility] Respiratory rate 2021-07-28 16:00:00 14 /min Univ ers[facility] [place] [facility] Oxygen saturation in 2021-07-28 16:00:00 96 /min University of Arterial blood by [facility] Pulse oximetry Branch Body temperature 2021-07-28 14:35:00 37.56 Francia Univ [facility] [place] [facility] Body weight 2021-07-28 14:35:00 84.369 kg [facility] [place] [facility] BMI 2021-07-28 14:35:00 31.93 kg/m2 [facility] [place] [facility] Systolic blood 2020-10-03 19:36:00 110 mm[Hg] Univer sity of pressure [place] [facility] Diastolic blood 2020-10-03 19:36:00 77 mm[Hg] Unive rsity of pressure [place] [facility] Heart rate 2020-10-03 19:36:00 84 /min [facility] [place] [facility] Body temperature 2020-10-03 19:36:00 36.61 Francia [facility] [place] [facility] Respiratory rate 2020-10-03 19:36:00 14 /min Univ [facility] [place] [facility] Body weight 2020-10-03 19:36:00 81.647 kg [facility] [place] [facility] BMI 2020-10-03 19:36:00 30.90 kg/m2 [facility] [place] [facility] Oxygen saturation in 2020-10-03 19:36:00 98 /min University of Arterial blood by [facility] Pulse oximetry Branch Systolic blood 2020-10-03 19:36:00 110 mm[Hg] Univer sity of pressure [place] [facility] Diastolic blood 2020-10-03 19:36:00 77 mm[Hg] Unive rsity of pressure [place] [facility] Heart rate 2020-10-03 19:36:00 84 /min [facility] [place] [facility] Body temperature 2020-10-03 19:36:00 36.61 Francia [facility] [place] [facility] Respiratory rate 2020-10-03 19:36:00 14 /min Univ [facility] [place] [facility] Body weight 2020-10-03 19:36:00 81.647 kg [facility] [place] [facility] BMI 2020-10-03 19:36:00 30.90 kg/m2 [facility] [place] [facility] Oxygen saturation in 2020-10-03 19:36:00 98 /min University of Arterial blood by [facility] Pulse oximetry Branch Systolic blood 2020-05-30 14:00:00 129 mm[Hg] Univer sity of pressure [place] [facility] Diastolic blood 2020-05-30 14:00:00 80 mm[Hg] Unive rsity of pressure [place] [facility] Heart rate 2020-05-30 14:00:00 62 /min [facility] [place] [facility] Respiratory rate 2020-05-30 14:00:00 12 /min Univ [facility] [place] [facility] Oxygen saturation in 2020-05-30 14:00:00 97 /min University of Arterial blood by [facility] Pulse oximetry Branch Body temperature 2020-05-30 12:26:00 36.67 Francia [facility] [place] [facility] Body height 2020-05-30 12:26:00 162.6 cm [facility] [place] [facility] Body weight 2020-05-30 12:26:00 81.647 kg [facility] [place] [facility] BMI 2020-05-30 12:26:00 30.90 kg/m2 [facility] [place] [facility] Systolic blood 2020-05-30 14:00:00 129 mm[Hg] Univer sity of pressure [facility] Branch Diastolic blood 2020-05-30 14:00:00 80 mm[Hg] Unive rsity of pressure [place] [facility] Heart rate 2020-05-30 14:00:00 62 /min [facility]i [facility] [place] [facility] Respiratory rate 2020-05-30 14:00:00 12 /min Univ [facility] [place] [facility] Oxygen saturation in 2020-05-30 14:00:00 97 /min University of Arterial blood by [facility] Pulse oximetry Branch Body temperature 2020-05-30 12:26:00 36.67 Francia Univ [facility] [place] [facility] Body height 2020-05-30 12:26:00 162.6 cm [facility] [place] [facility] Body weight 2020-05-30 12:26:00 81.647 kg [facility] [place] [facility] BMI 2020-05-30 12:26:00 30.90 kg/m2 [facility] [place] [facility] Procedures Procedure Date / Time Performing Clinician Source Performed CONSENT/REFUSAL FOR 2021-12-13 16:20:38 Doctor Unassigned, No [facility] [place] DIAGNOSIS AND TREATMENT Name Medical Branch CT THORAX W CONTRAST 2021-07-28 15:50:40 Herbert Reeves [facility] LACTIC ACID WHOLE BLOOD 2021-07-28 15:31:00 Herbert Reeves [facility] TROPONIN I 2021-07-28 15:30:00 Herbert Reeves [facility] COMP. METABOLIC PANEL 2021-07-28 15:30:00 Herbert Reeves [facility] ([id number]) Medical Branch CBC WITH DIFF 2021-07-28 15:30:00 Herbert Reeves [facility] N-TERMINAL PRO-BNP 2021-07-28 15:30:00 Herbert Reeves [facility] XR CHEST 1 VW 2021-07-28 15:11:32 Herbert Reeves [facility] COVID-19 (ID NOW RAPID 2021-07-28 14:51:00 Herbert Reeves [facility] TESTING) Medical Branch NOTICE OF PRIVACY 2021-07-28 14:29:17 Doctor Unassigned, No [facility] PRACTICES Name Medical Branch CONSENT/REFUSAL FOR 2021-07-28 14:29:04 Doctor Unassigned, No [facility] [place] DIAGNOSIS AND TREATMENT Name Medical Branch CONSENT/REFUSAL FOR 2020-10-03 19:26:01 Doctor Unassigned, No [facility] [place] [facility]REATMENT Name Medical Branch CT ABDOMEN PELVIS W 2020-05-30 13:49:07 Néstor Rodríguez [facility] CONTRAST Medical Branch LIPASE 2020-05-30 12:56:00 Singer [facility] COMP. METABOLIC PANEL 2020-05-30 12:56:00 [id number] CBC WITH DIFFERENTIAL 2020-05-30 12:56:00 [facility] 2020-05-30 12:56:00 Singer [facility] [place] [facility] Encounters Start End Encounter Admission Attending Care Care Encounter Source Date/Time Date/Time Type Type Clinicians Facility Department ID 2022-08-18 Outpatient [facility] [id number] [place] 06:07:26 [id number] [facility] 2022-07-11 Outpatient [facility] [id number] [place] 11:45:07 [id number] [facility] 2022-07-09 Outpatient [facility] [id number] [place] 12:36:29 [id number] [facility] 2022-07-09 Outpatient [facility] [id number] [place] 08:36:29 [id number] [facility] 2022-07-08 Outpatient [facility] [id number] [place] 12:07:02 [id number] [facility] 2022-07-01 Outpatient [facility] [id number] [place] 10:09:08 [id number] [facility] 2022 Outpatient LIZ, [facility] [id number] [place] 14:53:01 [facility] [id number] [facility] 2022-05-13 Outpatient [facility] [id number] [place] 06:41:07 [id number] [facility] 2022-05-01 Outpatient [facility] [id number] [place] 11:37:12 [id number] [facility] 2022-10-14 2022-10-14 Outpatient MALIHA, [facility] [id number] [place] 09:30:00 09:30:00 [facility] 2022-08-19 2022-08-19 Outpatient LIZ [facility] [id number] [place] 15:00:00 15:00:00 [facility] 2022-08-08 2022-08-08 Office Maliha, [facility] 4 [id number] [place] 11:30:00 12:26:15 Visit Gurinder [id number] alth [id number] [id number] 2022-07-11 2022-07-11 Office Maliha, [facility] 4 [id number] [place] 11:25:00 12:49:31 Visit Gurinder [id number] He alth [id number] [id number] 2022-07-11 2022-07-11 Outpatient MALIHA, [facility] [id number] [place] 11:25:00 11:25:00 [facility] 2022-07-08 2022-07-08 Office [place] 6410 [id number] [place] 13:00:00 14:09:34 Visit Robe DUTTON [id number] [facility] [id number] 2022-02-05 2022-02-05 Outpatient GENIE [facility]J [facility] [id number] [place] 03:21:00 03:21:00 [facility] Program 2021-12-13 2021-12-13 Emergency [facility] ERT [id number] Univers 10:31:00 11:47:00 CLARENCE long [facility] 2021-12-13 2021-12-13 Emergency [facility] [id number] Univers 10:31:00 11:47:00 Clarence PEDRAZA [id number] ity [facility] [id number] [facility] [id number] [address] 2021-07-28 2021-07-28 Emergency [facility] [id number] Univers 09:36:00 12:38:00 Herbert Pedraza [id number] i ty [facility] 4.2.7.2.686 [facility] [id number] [address] 2021-07-28 2021-07-[address] [facility] [id number] Univers 09:36:00 09:36:00 HERBERT maldonado [facility] 2020-10-04 2020-10-04 Osiris Cruz [id number] Univers 00:00:00 00:00:00 (Out) LOLY [id number] it y [facility] 4.2.7.2.686 [facility] [id number] [address] 2020-10-04 2020-10-04 Letter RAIZA Harris [id number] Univers 00:00:00 00:00:00 (Out) Jonelle SALCIDO [id number] ity of [facility] 4.[place].7.2.686 [place] [id number] [facility] (Not Health 019 Bran 2020-10-04 2020-10-04 Max Osiris Carpenter RAIZA [id number] 00:00:00 00:00:00 (Out) LOLY [id number] HOSPITAL 4.2.7.2.686 [id number] 2020-10-04 2020-10-04 Letter AleciaRAIZA [id number] 00:00:00 00:00:00 (Out) Jonelle LOLY [id number] [facility] 4.2.7.2.686 Testing [id number] (Not Health 019 2020-10-03 2020-10-03 Emergency Christ, K [facility] [id number] Univers 13:39:00 14:37:00 Angelique Pedraza [id number] i ty of [place] 4.2.7.2.686 [facility] [id number] [address] 2020-10-03 2020-10-03 Emergency Christ [place] [id number] 13:39:00 14:37:00 Angelique Pedraza [id number] [place] 4.2.7.2.686 Kimberly [id number] [facility] 2020-10-03 2020-10-03 Emergency X [facility] ERT [id number] Univers 13:27:00 13:27:00 ity of [facility] 2020-05-30 2020-05-30 Emergency [facility] [id number] Univers 07:29:53 09:55:00 Néstor Pedraza [id number] i ty of [place] 4.2.7.2.686 [facility] [id number] [address] 2020-05-30 2020-05-30 Emergency Rodríguez, [facility] [id number] 07:29:53 09:55:00 Nésotr Pedraza [id number] [place] 4.2.7.2.686 Kimberly [id number] 2020-05-30 2020-05-30 Emergency X SINGER [facility] ERT [id number] Univers 07:29:53 07:29:53 NÉSTOR beccamercedes [facility] Results Test Test Test Results Result Source Description Time Comments Comments CT THORAX W 2021-06-30. No evidence of Univer sity of CONTRAST 29 consolidation or effusion. [facility] 17:02:02 2. Small subcentimeter Br anch pulmonary nodule. Current recommendations forpulmonary nodules of the size are as follows, if the patient has a personalhistory of neoplasm or high risk factors for development of lung cancerrecommend a follow-up chest CT in 12 months. ?If the above not apply,current recommendations are additional follow-up. RL: [id number]: [id number] CLINICAL INFORMATION: Cough, persistent pneumonia, effusion, as suspected Ordering Physician: HERBERT REEVES TECHNIQUE: During administration of intravenous contrast 1.25 mm axialimages were obtained from the thoracic inlet through the lung bases. Imagesof the chest were repeated at 5 mm axial sections from the thoracic inletthrough the lung bases. ?Study was performed as a CT angiogram the chest. Sagittal and coronal reformatted images as well as 3-D reconstructions wereperformed. ?The examination was evaluated in soft tissue, bone and lungwindows. COMPARISON:Done FINDINGS: The heart is within normal limits of size. Bilateral breastprostheses are noted. No mediastinal, hilar or axillary lymphadenopathy isidentified. The thyroid gland is within normal. The visualized portions of the upper abdomen are unremarkable. The visualized osseous structures demonstrate diffuse thoracic spondylosiswithout acute process noted. On the lung windows, the trachea and central bronchi are well-aerated.There is mild centrilobular emphysematous changes noted. There is a 4 mmpulmonary nodule identified within the right upper lobe. Currentrecommendations for pulmonary nodules of the size are as follows, if thepatient has a personal history of neoplasm or high risk factors fordevelopment of lung cancer recommend a follow-up chest CT in 12 months. ?Ifthe above not apply, current recommendations are no additional follow-up.There is no evidence of consolidation or effusion. The visualized pulmonary arteries are normal in appearance without evidenceof filling defect to suggest pulmonary embolism CT scan done according to ALARA (As Low As Reasonably Achievable). [facility], Radiant Results Inft User - 07/28/2021 12:03 PM CDT CLINICAL INFORMATION: Cough, persistent pneumonia, effusion, as suspectedOrdering Physician: HERBERT REEVES TECHNIQUE: During administration of intravenous contrast 1.25 mm axialimages were obtained from the thoracic inlet through the lung bases. Imagesof the chest were repeated at 5 mm axial sections from the thoracic inletthrough the lung bases. Study was performed as a CT angiogram the chest. Sagittal and coronal reformatted images as well as 3-D reconstructions wereperformed. The examination was evaluated in soft tissue, bone and lungwindows.COMPARISON:Don eFINDINGS: The heart is within normal limits of size. Bilateral breastprostheses are noted. No mediastinal, hilar or axillary lymphadenopathy isidentified. The thyroid gland is within normal.The visualized portions of the upper abdomen are unremarkable.The visualized osseous structures demonstrate diffuse thoracic spondylosiswithout acute process noted.On the lung windows, the trachea and central bronchi are well-aerated.There is mild centrilobular emphysematous changes noted. There is a 4 mmpulmonary nodule identified within the right upper lobe. Currentrecommendations for pulmonary nodules of the size are as follows, if thepatient has a personal history of neoplasm or high risk factors fordevelopment of lung cancer recommend a follow-up chest CT in 12 months. Ifthe above not apply, current recommendations are no additional follow-up.There is no evidence of consolidation or effusion.The visualized pulmonary arteries are normal in appearance without evidenceof filling defect to suggest pulmonary embolismCT scan done according to ALARA (As Low As Reasonably Achievable).IMPRESSION1. No evidence of consolidation or effusion.2. Small subcentimeter pulmonary nodule. Current recommendations forpulmonary nodules of the size are as follows, if the patient has a personalhistory of neoplasm or high risk factors for development of lung cancerrecommend a follow-up chest CT in 12 months. If the above not apply,current recommendations are additional follow-up.RL: [id number]: [id number] THORAX W 2021-08- 1. No evidence of Univer sity of CONTRAST 29 consolidation or effusion. [facility] 17:02:02 2. Small subcentimeter Br anch pulmonary nodule. Current recommendations forpulmonary nodules of the size are as follows, if the patient has a personalhistory of neoplasm or high risk factors for development of lung cancerrecommend a follow-up chest CT in 12 months. ?If the above not apply,current recommendations are additional follow-up. RL: [id number]: [id number] CLINICAL INFORMATION: Cough, persistent pneumonia, effusion, as suspected Ordering Physician: HERBERT REEVES TECHNIQUE: During administration of intravenous contrast 1.25 mm axialimages were obtained from the thoracic inlet through the lung bases. Imagesof the chest were repeated at 5 mm axial sections from the thoracic inletthrough the lung bases. ?Study was performed as a CT angiogram the chest. Sagittal and coronal reformatted images as well as 3-D reconstructions wereperformed. ?The examination was evaluated in soft tissue, bone and lungwindows. COMPARISON:Done FINDINGS: The heart is within normal limits of size. Bilateral breastprostheses are noted. No mediastinal, hilar or axillary lymphadenopathy isidentified. The thyroid gland is within normal. The visualized portions of the upper abdomen are unremarkable. The visualized osseous structures demonstrate diffuse thoracic spondylosiswithout acute process noted. On the lung windows, the trachea and central bronchi are well-aerated.There is mild centrilobular emphysematous changes noted. There is a 4 mmpulmonary nodule identified within the right upper lobe. Currentrecommendations for pulmonary nodules of the size are as follows, if thepatient has a personal history of neoplasm or high risk factors fordevelopment of lung cancer recommend a follow-up chest CT in 12 months. ?Ifthe above not apply, current recommendations are no additional follow-up.There is no evidence of consolidation or effusion. The visualized pulmonary arteries are normal in appearance without evidenceof filling defect to suggest pulmonary embolism CT scan done according to ALARA (As Low As Reasonably Achievable). [facility], Radiant Results Inft User - 07/28/2021 12:03 PM CDT CLINICAL INFORMATION: Cough, persistent pneumonia, effusion, as suspectedOrdering Physician: HERBERT REEVES TECHNIQUE: During administration of intravenous contrast 1.25 mm axialimages were obtained from the thoracic inlet through the lung bases. Imagesof the chest were repeated at 5 mm axial sections from the thoracic inletthrough the lung bases. Study was performed as a CT angiogram the chest. Sagittal and coronal reformatted images as well as 3-D reconstructions wereperformed. The examination was evaluated in soft tissue, bone and lungwindows.COMPARISON:Don eFINDINGS: The heart is within normal limits of size. Bilateral breastprostheses are noted. No mediastinal, hilar or axillary lymphadenopathy isidentified. The thyroid gland is within normal.The visualized portions of the upper abdomen are unremarkable.The visualized osseous structures demonstrate diffuse thoracic spondylosiswithout acute process noted.On the lung windows, the trachea and central bronchi are well-aerated.There is mild centrilobular emphysematous changes noted. There is a 4 mmpulmonary nodule identified within the right upper lobe. Currentrecommendations for pulmonary nodules of the size are as follows, if thepatient has a personal history of neoplasm or high risk factors fordevelopment of lung cancer recommend a follow-up chest CT in 12 months. Ifthe above not apply, current recommendations are no additional follow-up.There is no evidence of consolidation or effusion.The visualized pulmonary arteries are normal in appearance without evidenceof filling defect to suggest pulmonary embolismCT scan done according to ALARA (As Low As Reasonably Achievable).IMPRESSION1. No evidence of consolidation or effusion.2. Small subcentimeter pulmonary nodule. Current recommendations forpulmonary nodules of the size are as follows, if the patient has a personalhistory of neoplasm or high risk factors for development of lung cancerrecommend a follow-up chest CT in 12 months. If the above not apply,current recommendations are additional follow-up.RL: [id number]: [id number] ONIN I 2021-07-28 16:09:03 Test Item Value Reference Range Interpretation Comme nts TROPONIN I (test code = 0.002 ng/mL See_Comment [Au tomated message] The [id number]) system which ge nerated this result tra nsmitted reference range : <=0.034. The reference r jori was not used to int erpret this result as normal/abnormal . MELCHOR (test code = MELCHOR) Reference (Normal) Range (defined by the 99th percentile reference limit): <= 0.034 ng/mL Note: Cardiac troponin begins to rise 3-4 hours after the onset of ischemia. Repeat in 4-6 hours if the sample was drawn within 3-4 hours of the onset of the symptom and found normal. Diagnosis of myocardial injury is made with acute changes in cTn concentrations with at least one serial sample above the 99th percentile upper reference limit (URL), taken together with the patient's clinical presentation. Biotin has been reported to cause a negative bias, interpret results relative to patient's use of biotin. Lab Interpretation Normal (test code = 00684-4) [id number] 16:09:03 Test Item Value Reference Range Interpretation Comments TROPONIN I (test code = 0.002 ng/mL See_Comment [Au tomated [id number]) message] The sy stem which generated this result transmitted reference range : <=0.034. The reference range was not used to interpret this result as normal/abnormal . MELCHOR (test code = MELCHOR) Lab Interpretation Normal (test code = 12520-4) [facility] [id number] 16:06:02 Test Item Value Reference Range Interpretation Comments NT-proBNP (test code 46 pg/mL See_Comment [Autom ated = 0549918463) message] The system which generated this result transmitted reference range : <=125. The reference range was not used to interpret this result as normal/abnormal . MELCHOR (test code = MELCHOR) Biotin has been reported to cause a negative bias, interpret results relative to patient's use of biotin. Lab Interpretation Normal (test code = 03284-3) [facility] [id number] 16:06:02 Test Item Value Reference Range Interpretation Comments NT-proBNP (test code = 46 pg/mL See_Comment [Aut omated message] 2061822127) The system [employer] generated this result transmitted ref erence range: <=125. T he reference range was not used to int erpret this result as normal/abnormal . MELCHOR (test code = MELCHOR) Lab Interpretation (test Normal code = 62643-2) [facility]. METABOLIC PANEL ([id number])2021-07-28 15:57:23 Test Item Value Reference Range Interpretation Comments NA (test code = 140 mmol/L 135-145 6522105369) K (test code = 3.9 mmol/L 3.5-5.0 9379828365) CL (test code = 103 mmol/L 98-108 4391702594) CO2 TOTAL (test code = 29 mmol/L 23-31 2026119957) AGAP (test code = 2-16 7383627019) BUN (test code = 13 mg/dL 7-23 6549003417) GLUCOSE (test code = 101 mg/dL 70-110 1793662347) CREATININE (test code = 0.73 mg/dL 0.50-1.04 8775157584) TOTAL BILI (test code = 0.6 mg/dL 0.1-1.9 6172225651) CALCIUM (test code = 9.8 mg/dL 8.6-10.6 8741484313) T PROTEIN (test code = 8.2 g/dL 6.3-8.2 7565566079) ALBUMIN (test code = 4.9 g/dL 3.5-5.0 4463199407) ALK PHOS (test code = 109 U/L 34-122 8079904805) ALTv (test code = 51 U/L 5-35 H 1742-6) AST(SGOT) (test code = 45 U/L 13-40 H 4773362948) eGFR (test code = mL/min/1.73m2 1785953682) MELCHOR (test code = MELCHOR) Association of Glomerular Filtration Rate (GFR) and Staging of Kidney Disease* + --+ --+ ------+| GFR (mL/min/1.73 m2) ?| With Kidney Damage ?| ?Without Kidney Damage+ --------+ --------+ +| ?>90 ?| ?Stage one ?| ? Normal ?+ ---+ ---+ -------+| ?60-89 ?| ?Stage two ?| ? Decreased GFR ? + --+ --+ ------+| ?30-59 ?| ?Stage three ?| ? Stage three ? + --+ --+ ------+| ?15-29 ?| ?Stage four ? | ? Stage four ?+ ---+ ---+ -------+| ?<15 (or dialysis) ? ?| ?Stage five ? | ? Stage five ?+ ---+ ---+ -------+ *Each stage assumes the associated GFR level has been in effect for at least three months. ?Stages 1 to 5, with or without kidney disease, indicate chronic kidney disease. Notes: Determination of stages one and two (with eGFR >59mL/min/1.73 m2) requires estimation of kidney damage for at least three months as defined by structural or functional abnormalities of the kidney, manifested by either:Pathological abnormalities or Markers of kidney damage (including abnormalities in the composition of the blood or urine or abnormalities in imaging tests). Lab Interpretation Abnormal (test code = 18096-5) [facility]. METABOLIC PANEL ([id number])2021-07-28 15:57:23 Test Item Value Reference Range Interpretation Comments NA (test code = 3214085137) 140 mmol/L 135-145 K (test code = 5215522274) 3.9 mmol/L 3.5-5.0 CL (test code = 4050747493) 103 mmol/L 98-108 CO2 TOTAL (test code = 0295854909) 29 mmol/L 23-31 AGAP (test code = 7757669518) 2-16 BUN (test code = 6093575287) 13 mg/dL 7-23 GLUCOSE (test code = 0553426187) 101 mg/dL 70-110 CREATININE (test code = 0.73 mg/dL 0.50-1.04 8414875177) TOTAL BILI (test code = 0.6 mg/dL 0.1-1.9 0028083491) CALCIUM (test code = 3072372993) 9.8 mg/dL 8.6-10.6 T PROTEIN (test code = 6087106581) 8.2 g/dL 6.3-8.2 ALBUMIN (test code = 4452743938) 4.9 g/dL 3.5-5.0 ALK PHOS (test code = 5462664717) 109 U/L 34-122 ALTv (test code = 1742-6) 51 U/L 5-35 H AST(SGOT) (test code = 7339167370) 45 U/L 13-40 H eGFR (test code = 7626504171) mL/min/1.73m2 MELCHOR (test code = MELCHOR) Lab Interpretation (test code = Abnormal 75147-8) [facility] [id number] 15:50:53No acute pulmonary disease. RL: 3201AFC: [id number] History: cough Ordering Physician: HERBERT REEVES COMPARISON:None FINDINGS: Single AP viewthe chest is provided. The trachea is midline. The cardiomediastinal silhouette is within normal limits. ?The lungs areclear. ?The costophrenic recesses are clear. Breast prostheses are noted. [facility], Radiant Results Inft User - 07/28/2021 10:52 AM CDT History: cough Ordering Physician: HERBERT REEVES COMPARISON:NoneFINDINGS: Single AP view the chest is provided. The trachea is midline. The cardiomediastinal silhouette is within normal limits. The lungs areclear. The costophrenic recesses are clear. Breast prostheses are noted.IMPRESSIONNo acute pulmonary disease.RL: 3201AFC: [id number] signed by Ermelinda Farrell MD at 07/28/2021 10:50 AMUnB[facility]XR CHEST 1 [id number] 15:50:53No acute pulmonary disease. RL: 3201AFC: [id number] History: cough Ordering Physician: HERBERT REEVES COMPARISON:None FINDINGS: Single AP viewthe chest is provided. The trachea is midline. The cardiomediastinal silhouette is within normal limits. ?The lungs areclear. ?The costophrenic recesses are clear. Breast prostheses are noted. [facility], Radiant Results Inft User - 07/28/2021 10:52 AM CDTFormatting of this note might be different from the o riginal.History: cough Ordering Physician: HERBERT REEVES COMPARISON:NoneFINDINGS: Single AP view the chest is provided. The trachea is midline. The cardiomediastinal silhouette is within normal limits. The lungs areclear. The costophrenic recesses are clear. Breast prostheses are noted.IMPRESSIONNo acute pulmonary disease.RL: 3201AFC: [id number] signed by Ermelinda Farrell MD at 07/28/2021 10:50 [facility] WITH [id number] 15:41:22 Test Item Value Reference Range Interpretation Comments WBC (test code = See_Comment [Automated message] 6690-2) The system [employer] generated this result transmitted ref erence range: 4.30 - 1 1.10 10*3/?L. The re ference range was not u sed to interpret this result as normal/abnor mal. RBC (test code = See_Comment [Automated message] 029-8) The system [employer] generated this result transmitted ref erence range: 3.93 - 5 .25 10*6/?L. The re ference range was not u sed to interpret this result as normal/abnor mal. HGB (test code = 13.6 g/dL 11.6-15.0 718-7) HCT (test code = 42.9 % 35.7-45.2 4544-3) MCV (test code = 85.8 fL 80.6-95.5 787-2) MCH (test code = 27.2 pg 25.9-32.8 785-6) MCHC (test code = 31.7 g/dL 31.6-35.1 786-4) RDW-SD (test code 42.5 fL 39.0-49.9 = 68030-0) RDW-CV (test code 13.6 % 12.0-15.5 = 788-0) PLT (test code = See_Comment [Automated message] 317-3) The system [employer] generated this result transmitted ref erence range: 166 - 35 8 10*3/?L. The re ference range was not u sed to interpret this result as normal/abnor mal. MPV (test code = 10.5 fL 9.5-12.9 46203-8) NRBC/100 WBC (test See_Comment [Automat ed message] code = 4642447054) The [employer] which generated this result transmitted ref erence range: 0.0 - 10 .0 /100 WBCs. The refer ence range was not u sed to interpret this result as normal/abnor mal. NRBC x10^3 (test <0.01 See_Comment [Automated message] code = 4461812337) [employer] which generated this result transmitted ref erence range: 10*3/?L. The reference range was not used to interpr et this result as normal/abnormal . GRAN MAT (NEUT) % 59.8 % (test code = 770-8) IMM GRAN % (test 0.20 % code = 4650313955) LYMPH % (test code 27.3 % = 736-9) MONO % (test code 10.3 % = 5905-5) EOS % (test code = 1.6 % 713-8) BASO % (test code 0.8 % = 706-2) GRAN MAT 3.02 10*3/uL 1.88-7.09 x10^3(ANC) (test code = 0791467822) IMM GRAN x10^3 <0.03 0.00-0.06 (test code = 8391954068) LYMPH x10^3 (test 1.38 10*3/uL 1.32-3.29 code = 731-0) MONO x10^3 (test 0.52 10*3/uL 0.33-0.92 code = 742-7) EOS x10^3 (test 0.08 10*3/uL 0.03-0.39 code = 711-2) BASO x10^3 (test 0.04 10*3/uL 0.01-0.07 code = 704-7) [facility] WITH [id number] 15:41:22 Test Item Value Reference Range Interpretation Comments WBC (test code = See_Comment [Automated message] 6690-2) The system [employer] generated this result transmitted ref erence range: 4.30 - 1 1.10 10*3/?L. The re ference range was not u sed to interpret this result as normal/abnor mal. RBC (test code = See_Comment [Automated message] 789-8) The system [employer] generated this result transmitted ref erence range: 3.93 - 5 .25 10*6/?L. The re ference range was not u sed to interpret this result as normal/abnor mal. HGB (test code = 13.6 g/dL 11.6-15.0 718-7) HCT (test code = 42.9 % 35.7-45.2 4544-3) MCV (test code = 85.8 fL 80.6-95.5 787-2) MCH (test code = 27.2 pg 25.9-32.8 785-6) MCHC (test code = 31.7 g/dL 31.6-35.1 786-4) RDW-SD (test code 42.5 fL 39.0-49.9 = 20398-5) RDW-CV (test code 13.6 % 12.0-15.5 = 788-0) PLT (test code = See_Comment [Automated message] 777-3) The system [employer] h generated this result transmitted ref erence range: 166 - 35 8 10*3/?L. The re ference range was not u sed to interpret this result as normal/abnor mal. MPV (test code = 10.5 fL 9.5-12.9 72447-5) NRBC/100 WBC (test See_Comment [Automat ed message] code = 6777565992) The syste m which generated this result transmitted ref erence range: 0.0 - 10 .0 /100 WBCs. The refer ence range was not u sed to interpret this result as normal/abnor mal. NRBC x10^3 (test <0.01 See_Comment [Automated message] code = 1747546916) The syste m which generated this result transmitted ref erence range: 10*3/?L. The reference range was not used to interpr et this result as normal/abnormal . GRAN MAT (NEUT) % 59.8 % (test code = 770-8) IMM GRAN % (test 0.20 % code = 6042283931) LYMPH % (test code 27.3 % = 736-9) MONO % (test code 10.3 % = 5905-5) EOS % (test code = 1.6 % 713-8) BASO % (test code 0.8 % = 706-2) GRAN MAT 3.02 10*3/uL 1.88-7.09 x10^3(ANC) (test code = 7364659460) IMM GRAN x10^3 <0.03 0.00-0.06 (test code = 7754089044) LYMPH x10^3 (test 1.38 10*3/uL 1.32-3.29 code = 731-0) MONO x10^3 (test 0.52 10*3/uL 0.33-0.92 code = 742-7) EOS x10^3 (test 0.08 10*3/uL 0.03-0.39 code = 711-2) BASO x10^3 (test 0.04 10*3/uL 0.01-0.07 code = 704-7) [facility] [id number] 15:39:36 Test Item Value Reference Range Interpretation Comments LACTIC ACID (test code = 0.69 mmol/L 0.50-2.20 0361420650) Lab Interpretation (test code = Normal 38011-1) [facility] Acid Whole [id number] 15:39:36 Test Item Value Reference Range Interpretation Comments LACTIC ACID (test code = 0.69 mmol/L 0.50-2.20 4919718726) Lab Interpretation (test code = Normal 57859-4) [facility] RAPID TESTING)2021-07-28 15:22:42 Test Item Value Reference Range Interpretation Comments SARS-CoV-2 Rapid ID NOW Not Detected Not Detected (test code = 54343-4) MELCHOR (test code = MELCHOR) ID NOW COVID-19 Assay is an isothermal nucleic acid amplification test intended for the qualitative detection of nucleic acid from SARS-CoV-2 viral RNA in nasopharyngeal (MOLDER INFLATED BALL) specimens. It is used under Emergency Use Authorization (EUA) by FDA. The limit of detection (LOD) of the assay is 125 Genome Equivalents/mL. A positive result is indicative of the presence of SARS-CoV-2 RNA. ?Clinical correlation with patient history and other diagnostic information is necessary to determine patient infection status. A negative (Not Detected) result does not preclude SARS-CoV-2 infection. In patients with clinical symptoms and other tests that are consistent with SARS-CoV-2 infection, negative results should be treated as presumptive negative and a new specimen should be tested with alternative PCR molecular test. Invalid: Please collect a new specimen for repeat patient testing if clinically indicated. Lab Interpretation Normal (test code = 99937-0) [facility]ID TEST[facility])2021-07-28 15:22:42 Test Item Value Reference Range Interpretation Comments SARS-CoV-2 Rapid ID NOW (test Not Detected Not Detected code = 23045-3) MELCHOR (test code = MELCHOR) Lab Interpretation (test code = Normal 62730-3) [facility] W [id number] 14:01:31CT Abdomen and Pelvis with intravenous contrast. CLINICAL HISTORY: Generalized abdominal pain. DOSE:Up-to-date CT equipment and radiation dose reduction techniques wereemployed. CTDIvol: 9.18 mGy. DLP: 471 mGy-cm. TECHNIQUE : Contiguous axial imaging from the level of the lung basesthrough the pubic s ymphysis were performed after the uncomplicatedadministration of Omnipaque contrast material. Coronal and sagittalreconstructions were obtained. Auto mA and/or iterative reconstruction wereused to reduce radiation dose. FINDINGS: No prior study available for comparison. Lower lungs: Clear. No pleural effusion or pericardial effusion. Nodefinite evidence of hiatal hernia. Bilateral breast augmentationprosthesis are partially visualized. Liver, Gallbladder and Spleen: Normal. No gallstones visualized.Liver isapproximately 15.7 cm in length and spleen measures approximately 10.5 x4.5 cm. Biliary ducts and the pancreatic duct appear of normal size. Peritoneum: ?No free air or free fluid. No lymphadenopathy. Pancreas and Adrenals: ?Unremarkable pancreas and adrenal glands. Kidneys and Ureters: ?No visible calculi in the renal collecting systems. No hydroureter or hydronephrosis. 9 mm low density lesion in the dorsalcortex at interpolar region of the right kidney and another 9 mm lesionalong the lateral cortex near the lower pole of the right kidney noted,consistent with possibility of small incidental renal cysts. Vessels: Normal. Retroperitoneum: No abnormal fluid or lymphadenopathy. Bowel: No acute findings. Normal appendix is visualized. Small bowel gaspattern is unremarkable. Bladder and Reproductive Organs: Grossly unremarkable poorly distendedunopacified urinary bladder. Heterogeneously enhancing lesion of 18 mm sizenoted in the anterior wall of the body of the uterus, consistent with asmall fibroid. No suspicious adnexal masses. Minimal free fluid noted inthe cul-de-sac. Bones: Moderate degenerative disc disease at L5-S1 with minimalretrolisthesis of L5 over S1. Prominent Schmorl's nodes are seen in thelower thoracic and upper lumbar vertebral endplates which could besecondary to remote axial loading trauma. No acute compression fracturedetected. No aggressive bone lesions visualized. Bone island noted in theneck of the left femur. No signs of AVN in the femoral heads. Soft tissues: Unremarkable. CONCLUSION: No acute intra-abdominal or pelvic pathology detected. [facility], Radiant Results Inft User - 05/30/2020 9:02 AM CDTCT Abdomen and Pelvis with intravenous contrast.CLINICAL HISTORY: Generalized abdominal pain.DOSE: Up-to-date CT equipment and radiation dose reduction techniques wereemployed. CTDIvol: 9.18 mGy. DLP: 471 mGy-cm.TECHNIQUE : Contiguous axial imaging from the level of the lung basesthrough the pubic symphysis were performed after the uncomplicatedadministration of Omnipaque contrast material. Coronal and sagittalreconstructions were obtained. Auto mA and/or iterative reconstruction wereused to reduce radiation dose.FINDINGS: No prior study available for comparison.Lower lungs: Clear. No pleural effusion or pericardial effusion. Nodefinite evidence of hiatal hernia. Bilateral breast augmentationprosthesis are partially visualized.Liver, Gallbladder and Spleen: Normal. No gallstones visualized. Liver isapproximately 15.7 cm in length and spleen measures approximately 10.5 x4.5 cm. Biliary ducts and the pancreatic duct appear of normal size.Peritoneum: No free air or free fluid. No lymphadenopathy.Pancreas and Adrenals: Unremarkable pancreas and adrenal glands.Kidneys and Ureters: No visible calculi in the renal collecting systems. No hydroureter or hydronephros is. 9 mm low density lesion in the dorsalcortex at interpolar region of the right kidney and another9 mm lesionalong the lateral cortex near the lower pole of the right kidney noted,consistent with possibility of small incidental renal cysts. Vessels: Normal.Retroperitoneum: No abnormal fluid or lymph adenopathy.Bowel: No acute findings. Normal appendix is visualized. Small bowel gaspattern is unremarkable.Bladder and Reproductive Organs: Grossly unremarkable poorly distendedunopacified urinary bladder. Heterogeneously enhancing lesion of 18 mm sizenoted in the anterior wall of the body of the uterus, consistent with asmall fibroid. No suspicious adnexal masses. Minimal free fluid noted inthe cul-de-sac.Bones: Moderate degenerative disc disease at L5-S1 with minimalretrolisthesis of L5 over S1. Prominent Schmorl's nodes are seen in thelower thoracic and upper lumbar vertebral endplates which could besecondary to remote axial loading trauma. No acute compression fracturedetected. No aggressive bone lesions visualized. Bone island noted in theneck of the left femur. No signs of AVN in the femoral heads.Soft tissues: Unremarkable.CONCLUSION: No acute intra-abdominal or pelvic pathology detected. [facility]36[facility]00 Test Item Value Reference Range Interpretation Comments APPEARANCE (test code = Hazy Clear A 8920507207) COLOR (test code = Jen Yellow A 6724653463) PH (test code = 4.8-8.0 4783606922) SP GRAVITY (test code = 1.003-1.030 7750906632) GLU U QUAL (test code = Normal Normal 0582787781) BLOOD (test code = 1+ Negative A 4419450585) KETONES (test code = Negative Negative 9166262725) PROTEIN (test code = Negative Negative 2887-8) UROBILIN (test code = Normal Normal 4571477263) BILIRUBIN (test code = Negative Negative 8722626482) NITRITE (test code = Negative Negative 9641943326) LEUK TRINITY (test code = Negative Negative 8188583905) RBC/HPF (test code = See_Comment H [Autom ated message] 0459371906) The system De[employer] generated this result transmitted ref erence range: 0 - 3 HP F. The reference range was not used to int erpret this result as normal/abnormal . WBC/HPF (test code = See_Comment [Autom ated message] 8677849715) The system De[employer] generated this result transmitted ref erence range: 0 - 5 HP F. The reference range was not used to int erpret this result as normal/abnormal . BACTERIA (test code = Few Negative A 0323167341) MUCOUS (test code = Marked Negative LPF A 4162444795) SQ EPITH (test code = HPF 9160968057) CA OXALATE (test code = See_Comment H [Au tomated message] 6952646740) The system De[employer] generated this result transmitted ref erence range: <=1 HPF. The reference range was not used to int erpret this result as normal/abnormal . HYAL CAST (test code = See_Comment H [Aut omated message] 1593011359) The system De[employer] generated this result transmitted ref erence range: <=2 LPF. The reference range was not used to int erpret this result as normal/abnormal . Lab Interpretation (test Abnormal code = 03595-0) [facility]. METABOLIC PANEL (50931)2020-05-30 13:19:00 Test Item Value Reference Range Interpretation Comments NA (test code = 138 mmol/L 135-145 9385171080) K (test code = 3.8 mmol/L 3.5-5 2300580184) CL (test code = 104 mmol/L 98-108 7860569193) CO2 TOTAL (test code = 28 mmol/L 23-31 3572275291) AGAP (test code = 2-16 3333969866) BUN (test code = 18 mg/dL 7-23 6294209264) GLUCOSE (test code = 107 mg/dL 70-110 9418254658) CREATININE (test code 0.68 mg/dL 0.5-1.04 = 1380505085) TOTAL BILI (test code 0.6 mg/dL 0.1-1.1 = 5390578513) CALCIUM (test code = 9.3 mg/dL 8.6-10.6 4223642860) T PROTEIN (test code = 7.4 g/dL 6.3-8.2 4241297541) ALBUMIN (test code = 4.4 g/dL 3.5-5 9627666488) ALK PHOS (test code = 74 U/L 34-122 9713831164) ALTv (test code = 20 U/L 5-35 1742-6) AST(SGOT) (test code = 26 U/L 13-40 2313678981) eGFR Calculation mL/min/1.73m2 (Non-) (test code = 8618320651) eGFR Calculation mL/min/1.73m2 () (test code = 4952729908) MELCHOR (test code = MELCHOR) Association of Glomerular Filtration Rate (GFR) and Staging of Kidney Disease* + -+ + ---+| GFR (mL/min/1.73 m2) ?| With Kidney Damage ?| ?Without Kidney Damage+ -------+ ------+ ---------+| ?>90 ?| ?Stage one ?| ? Normal ?+ --+ -+ ----+| ?60-89 ?| ?Stage two ?| ? Decreased GFR ? + -+ + ---+| ?30-59 ?| ?Stage three ?| ? Stage three ? + -+ + ---+| ?15-29 ?| ?Stage four ? | ? Stage four ?+ --+ -+ ----+| ?<15 (or dialysis) ? ?| ?Stage five ? | ? Stage five ?+ --+ -+ ----+ *Each stage assumes the associated GFR level has been in effect for at least three months. ?Stages 1 to 5, with or without kidney disease, indicate chronic kidney disease. Notes: Determination of stages one and two (with eGFR >59mL/min/1.73 m2) requires estimation of kidney damage for at least three months as defined by structural or functional abnormalities of the kidney, manifested by either:Pathological abnormalities or Markers of kidney damage (including abnormalities in the composition of the blood or urine or abnormalities in imaging tests). [facility] 13:19:00 Test Item Value Reference Range Interpretation Comments LIPASE (test code = 2341256542) 103 U/L 0-220 Lab Interpretation (test code = Normal 37462-0) [facility] CenterCB WITH [id number] 13:11:00 Test Item Value Reference Range Interpretation Comments WBC (test code = See_Comment [Automated message] 6690-2) The system De[employer] generated this result transmitted ref erence range: 4.30 - 1 1.10 10*3/?L. The re ference range was not u sed to interpret this result as normal/abnor mal. RBC (test code = See_Comment [Automated message] 789-8) The system whic h generated this result transmitted ref erence range: 3.93 - 5 .25 10*6/?L. The re ference range was not u sed to interpret this result as normal/abnor mal. HGB (test code = 13.3 g/dL 11.6-15 718-7) HCT (test code = 41.0 % 35.7-45.2 4544-3) MCV (test code = 85.1 fL 80.6-95.5 787-2) MCH (test code = 27.6 pg 25.9-32.8 785-6) MCHC (test code = 32.4 g/dL 31.6-35.1 786-4) RDW-SD (test code 39.2 fL 39-49.9 = 90871-1) RDW-CV (test code 12.7 % 12-15.5 = 788-0) PLT (test code = See_Comment [Automated message] 777-3) The system De[employer] generated this result transmitted ref erence range: 166 - 35 8 10*3/?L. The re ference range was not u sed to interpret this result as normal/abnor mal. MPV (test code = 10.9 fL 9.5-12.9 10759-2) NRBC/100 WBC (test See_Comment [Automat ed message] code = 9763246069) The syste m which generated this result transmitted ref erence range: 0.0 - 10 .0 /100 WBCs. The refer ence range was not u sed to interpret this result as normal/abnor mal. NRBC x10^3 (test <0.01 See_Comment [Automated message] code = 1447850206) The syste m which generated this result transmitted ref erence range: 10*3/?L. The reference range was not used to interpr et this result as normal/abnormal . GRAN MAT (NEUT) % 47.6 % (test code = 770-8) IMM GRAN % (test 0.20 % code = 7949842185) LYMPH % (test code 39.4 % = 736-9) MONO % (test code 8.4 % = 5905-5) EOS % (test code = 3.6 % 713-8) BASO % (test code 0.8 % = 706-2) GRAN MAT 2.49 10*3/uL 1.88-7.09 x10^3(ANC) (test code = 7890620627) IMM GRAN x10^3 <0.03 0-0.06 (test code = 2124200532) LYMPH x10^3 (test 2.06 10*3/uL 1.32-3.29 code = 731-0) MONO x10^3 (test 0.44 10*3/uL 0.33-0.92 code = 742-7) EOS x10^3 (test 0.19 10*3/uL 0.03-0.39 code = 711-2) BASO x10^3 (test 0.04 10*3/uL 0.01-0.07 code = 704-7) [facility] Center[facility] RFLX MICROSCOPIC [id number] 14:29:00 Test Item Value Reference Range Interpretation [...] = UASPEC) UA WBC (test code = 10 - 20 #/hpf <10 A WBCU) UA SQUAMOUS CELLS 0 - 20 #/lpf <100 (test code = SQU) UA CULTURE NEEDED? Criteria met (test code = UACULT) UA [id number] 14:29:00 Test Item Value Reference Range Interpretation Comments UA RBC (test code = RBCU) 2-5 #/hpf NONE SEEN A UA BACTERIA (test code = BACU) 1+ #/hpf NONE SEEN - US ABDOMEN [id number] 14:28:00 Patient Name: ROLANDO GARCIA Unit No: [id number] EXAMS: CPT CODE: [id number] US ABDOMEN LTD 25084 - US ABDOMEN LTD 03/28/2019 1:32 PM ULTRASOUND OF THE GALLBLADDER: Multiple images of the gallbladder were obtained. The gallbladder is well distended and has a normal wall thickness. There is no evidence of gallstones, sludge or pericholecystic fluid. Common bile duct measures 6 mm. The visualized liver,pancreas and right kidney are unremarkable. IMPRESSION: Normal gallbladder ultrasound. at 1428 Reported and signed by: Jaylen Ni MD CC: Jude Perkins MD Technologist: Franklin Ford Trnscrbd D/ (1421) t.SDR.MK41 OrigPrint D/T: S: 03/28/2019 (5884) Probe: [facility] NAME: ROLANDO GARCIA [address] PHYS: [place] [address] : 1970 AGE: 48 SEX: F LOC: [facility] PHONE #: [phone] EXAM DATE: 03/28/2019 STATUS: REG ER FAX #: RAD NO: Page 1 Signed ReportCOMPREHENSIVE METABOLIC [id number] 14:21:00 Test Item Value Reference Range Interpretation [...] 50-136 N TOTAL (test code = ALKP) [id number] 14:21:00 Test Item Value Reference Range Interpretation Comments LIPASE (test code = LIP) 224 Units/L 73-393 N HCG SERUM [id number] 14:19:00 Test Item Value Reference Range Interpretation [...] aquantitative h CG assay. UA RFLX MICROSCOPIC [id number] 14:12:00 Test Item Value Reference Range Interpretation [...] CULTURE NEEDED? (test code = UACULT) UA [id number] 14:12:00 Test Item Value Reference Range Interpretation Comments UA RBC (test code = RBCU) #/hpf NONE SEEN UA RFLX MICROSCOPIC [id number] 14:12:00 Test Item Value Reference Range Interpretation [...] CULTURE NEEDED? (test code = UACULT) UA [id number] 14:12:00 Test Item Value Reference Range Interpretation Comments UA RBC (test code = RBCU) #/hpf NONE SEEN CBC W/AUTO [id number] 14:11:00 Test Item Value Reference Range Interpretation [...] 0.0 X10 3/uL 0.0-0.2 N NRBC#) TISSUE [id number] 15:56:00Surgical Pathology Report Case: [id number] Authorizing Provider: Dilip Luevano MD Collected:11/17/2017 1351 Ordering Location: [facility] PERIOPERATIVE Received: 11/17/2017 1431 SERVICES Pathologist: Randy Barroso MD Specimen: Disc C3-4, DISC FROM C3-6 VERTEBRAL COLUMN, INTERVERTEBRAL DISCS, C3-6, DISCECTOMIES:FRAGMENTS OF FIBROCARTILAGE WITH MILD DEGENERATIVE CHANGES Signing Pathologist Direct Phone Line: [phone] signed by Randy Barroso MD on 11/19/2017 at 3:56 [id number] nucleus pulposus of cervix. Cervical myelopathyDisc C3-4 and C3-6The specimen is received in saline labeled with the patient's information and labeled "disc C3-4 and C3-6" and consists of small portions of off white fibrocartilaginous tissue measuring 1 x 1 x 0.3 cm in aggregate. Submitted entirely A1 for decalcification. CG/pl PerformedNP, NEURO INTRAOPERATIVE [id number] 10:49:00Reason for exam:->cervical stenosisINTRAOPERATIVE MONITORING REPORT Patient Name: Rolando Garcia [facility] Surgery Date: 11/17/17 [place] Pro: [id number] Monitoring began at 11:19 and ended at 14:30 Surgeon: Dilip Luevano M.D. Examining Physician : Sheba Wooten M.D. Monitoring Technologist: KRISTA Krishna Procedure: ACDF C3-C6 Stimulation Parameters: Ulnar nerves individually stimulated at the wrist Rate 3.63Hz, Intensity 30A, Duration 0.3ms Posterior Tibial nerves individually stimulated at the ankle Rate 3.63Hz, Intensity 60mA, Duration 0.3ms Filters 30-500Hz, Notch Off RecordingParameters: CV, CP3, CP4, CPz, and FPzFree-running EEG recorded with bipolar derivation, using modified International 10/20 placements: C3-FPZ, C4-FPZ Description: Intraoperative neurophysiological monitoring was performed using a combination of upper and lower extremity somatosensory evoked potentials, Free-running EEGs. A real-time connection with the examining neurologist was established and mainta ined throughout the operative procedure by the monitoring technologist. Upper extremity somatosensory evoked potentials were recorded centrally at the cervical and cortical levels following ulnar nervestimulation. Lower extremity somatosensory evoked potentials were recorded centrally at the cervicaland cortical levels following posterior tibial stimulation at the ankle. SSEP baselines were established and monitored throughout the duration of the procedure. At closing, responses were judged to be essentially unchanged from those of post-positioning baselines. Surgeon was aware of all responses inreal- time. Free-running EEG remained symmetrical throughout the procedure with no focal changes noted to occur. Conclusion: These results suggest the absence of untoward, secondary effects on the posterior column function as a consequence of this surgical procedure. Sheba Wooten M.D.M50.0, M50.20 BASIC METABOLIC [id number] 08:26:00 Test Item Value Reference Range Interpretation [...] PATIEN TS. CBC W/PLT COUNT & AUTO [id number] 08:11:00 Test Item Value Reference Range Interpretation [...] PERCENT (BEAKER) (test code = 2801) [place], LOAN DOCUMENTATION SPECIALIST IN OR/30 MINUTE [id number] 14:09:00Reason for exam:- >cervical stenosisFINAL REPORT History: Cervical stenosis COMPARISON: None DISCUSSION: A total of3 intraoperative images were submitted for interpretation. Neither was a radiologist present nor requested during the procedure. The findings should be correlated with intraprocedural observations. Theimages were presented for interpretation following completion of the examination. This is a nondiagnostic examination. The images demonstrate fixation of the C3-C6 levels anteriorly with plate and screws as well as a spacer material at the C3-4, C4-5 and C5-6 levels. Findings should be correlated withintraprocedural observations. The total fluoroscopy time was 0.0 minutes . A total of 3 static images were acquired. Signed: Alli Silva MDReport Verified Date/Time: 11/17/2017 14:09:04 Reading Location: [address] Consult Reading Room [place], LOAN DOCUMENTATION SPECIALIST IN OR/30 MINUTE [id number] 12:28:00Reason for exam:->cervical stenosisFINAL REPORT INDICATION: Cervical stenosis. COMPARISON: None [...] mGy, 0.0453 Gy.cm2, 1 image Signed: Minal Osborn MDReport Verified Date/Time: 11/17/2017 12:28:12 Reading Location: [facility] Radiology Reading Room [id number] 12:00:00 Test Item Value Reference Range Interpretation Comments PROTIME (BEAKER) (test code = 12.9 seconds 11.7-14.7 759) INR (BEAKER) (test code = 370) 1.0 <=5.9 PARTIAL THROMBOPLASTIN TIME 32.4 seconds 22.5-36.0 (BEAKER) (test code = 760) RECOMMENDED COUMADIN/WARFARIN INR THERAPY RANGESSTANDARD DOSE: 2.0 - 3.0 Includes: PROPHYLAXIS for venous thrombosis, systemic embolization; TREATMENT for venous thrombosis and/or pulmonary embolus.HIGH RISK: Target INR is 2.5-3.5 for patients with mechanical heart valves.BASIC METABOLIC [id number] 11:59:00 Test Item Value Reference Range Interpretation [...] DIALYSIS PATIEN TS. URINALYSIS W/ REFLEX URINE [id number] 11:55:00 Test Item Value Reference Range Interpretation [...] = 2795) CBC W/PLT COUNT & AUTO [id number] 11:45:00 Test Item Value Reference Range Interpretation [...] (test code = 2801) RAD, CHEST, 2 [id number] 11:44:00Reason for Exam:->pre opFINAL REPORT History provided: Preoperative assessment CHEST PA AND LATERAL: Normal cardiomediastinal silhouette. Lungs are fully expanded and clear. CONCLUSION: Normal two-view chest examination. Signed: Amber Lares MDReport Verified Date/Time: 10/30/2017 11:44:26 Reading Location: [facility] Diagnostic Imaging Reading Room - [facility] [phone]
--- NOTE | 2022-08-27 11:58 | RAD REPORT ---
EXAM DESCRIPTION: RAD - Foot Left 3 View - 08/27/2022 10:07 am CLINICAL HISTORY: crush COMPARISON: No comparisons FINDINGS: A large plantar calcaneal spur is present. No acute fracture or dislocation is seen.
--- NOTE | 2022-08-27 11:59 | RAD REPORT ---
EXAM DESCRIPTION: RAD - Hip Right 2 View - 08/27/2022 10:07 am CLINICAL HISTORY: PAIN COMPARISON: Hip Right 2 View dated 01/19/2017 FINDINGS: Mild arthritic changes right hip. No fracture, dislocation or AVN seen.
--- NOTE | 2022-08-27 12:01 | ER ---
Nurse's Notes [facility] Name: Ashley Mora Age: 52 yrs Sex: Female : 1970 Arrival Date: 08/27/2022 Time: 09:20 Bed 19 Private MD: Diagnosis: Contusion of left foot Presentation: 08/27 09:30 Chief complaint: Patient states: something fell on her left foot last week, it was a iw machine that she was moving and it dropped on her foot , also has had right hip pain since then. Coronavirus screen: At this time, the client does not indicate any symptoms associated with coronavirus-19. Ebola Screen: Patient negative for fever greater than or equal to 101.5 degrees Fahrenheit, and additional compatible Ebola Virus Disease symptoms Patient denies exposure to infectious person. Patient denies travel to an Ebola-affected area in the 21 days before illness onset. No symptoms or risks identified at this time. Initial Sepsis Screen: Does the patient meet any 2 criteria? No. Patient's initial sepsis screen is negative. Does the patient have a suspected source of infection? No. Patient's initial sepsis screen is negative. Risk Assessment: Do you want to hurt yourself or someone else? Patient reports no desire to harm self or others. Onset of symptoms was August 20, 2022. 09:30 Method Of Arrival: Ambulatory iw 09:30 Acuity: IKER 4 iw Triage Assessment: :30 General: Appears in no apparent distress. comfortable, Behavior is cooperative, bp appropriate for age, anxious. Pain: Complains of pain in left foot. EENT: No deficits noted. Neuro: No deficits noted. Cardiovascular: No deficits noted. Respiratory: No deficits noted. GI: No signs and/or symptoms were reported involving the gastrointestinal system. : No signs and/or symptoms were reported regarding the genitourinary system. Derm: No deficits noted. Musculoskeletal: No deficits noted. Injury Description: Bruise sustained to left foot. Historical: - Allergies: : No Known Allergies; iw - Home Meds: None [Active]; iw - PMHx: : Anxiety; iw - PSHx: : neck; breast augmentation; iw - Immunization history:: Adult Immunizations up to date. - Family history:: not pertinent. - Social history:: Smoking status: Patient denies any tobacco usage or history of. - Hospitalizations: : No recent hospitalization is reported. Screenin:30 Abuse screen: Denies threats or abuse. Denies injuries from another. Nutritional bp screening: No deficits noted. Tuberculosis screening: No symptoms or risk factors identified. Fall Risk None identified. Assessment: 09:30 General: SEE TRIAGE NOTE. bp 10:30 Reassessment: No changes from previously documented assessment. Patient and/or family bp updated on plan of care and expected duration. Pain level reassessed. 12:30 Reassessment: DC HOME AMBULATORY. bp Vital Signs: 09:30 BP 111 / 79; Pulse 89; Resp 16; Temp 97.0; Pulse Ox 98% on R/A; Pain 8/10; iw 10:30 BP 111 / 67; Pulse 73; Resp 16; Pulse Ox 97% ; bp 12:30 BP 121 / 84; Pulse 70; Resp 16; Pulse Ox 100% ; bp ED Course: 09:20 Patient arrived in ED. rg4 09:25 Augustine Jimenez, DIANA is Primary Nurse. bp 09:28 Brock Hidalgo MD is Attending Physician. rn 09:31 Triage completed. iw 09:32 Arm band placed on. iw 10:49 XRAY Foot LEFT 3 View In Process Unspecified. EDMS 10:49 XRAY Hip RIGHT 2 view In Process Unspecified. EDMS 12:30 Patient has correct armband on for positive identification. Bed in low position. Call bp light in reach. Side rails up X2. 12:30 No provider procedures requiring assistance completed. Patient did not have IV access bp during this emergency room visit. Administered Medications: No medications were administered Medication: 10:30 VIS not applicable for this client. bp Outcome: 12:00 Discharge ordered by . rn 12:30 Discharged to home ambulatory. bp 12:30 Condition: stable 12:30 Discharge instructions given to patient, Instructed on discharge instructions, follow up and referral plans. Demonstrated understanding of instructions, follow-up care. 12:36 Patient left the ED. bp Signatures: Dispatcher [employer] Melia Goncalves RN RN iw Nieto, Roman, MD MD rn Garcia, Rubi rg4 Augustine Jimenez RN RN bp Corrections: (The following items were deleted from the chart) 09:42 09:30 BP 111 / 79; Pulse 89bpm; Resp 16bpm; Pulse Ox 98% RA; Temp 97.0F; Pain 8/10; iw iw
--- NOTE | 2022-08-27 12:01 | EDPHYS ---
Physician Documentation [facility] Name: Ashley Mora Age: 52 yrs Sex: Female : 1970 Arrival Date: 08/27/2022 Time: 09:20 Bed 19 Private MD: ED Physician Brock Hidalgo HPI: 08/27 09:36 This 52 yrs old Female presents to ER via Ambulatory with complaints of Foot Injury, rn Hip Pain. 09:36 The patient presents with an injury, pain. The complaints affect the left foot. Onset: rn The symptoms/episode began/occurred 6 day(s) ago. Modifying factors: The symptoms are alleviated by nothing, the symptoms are aggravated by weight bearing, wearing shoes. Associated signs and symptoms: Pertinent negatives: fever, swelling, weakness. Severity of symptoms: At their worst the symptoms were mild, in the emergency department the symptoms are unchanged. The patient has not experienced similar symptoms in the past. The patient has not recently seen a physician. Pt reports heavy object fell on left foot 5-6 days ago, hurts to walk and wear work boots since then. Fell on left shoe only. Also reports right hip pain that began shortly after. . Historical: - Allergies: 09:31 No Known Allergies; iw - Home Meds: :31 None [Active]; iw - PMHx: :31 Anxiety; iw - PSHx: 09:31 neck; breast augmentation; iw - Immunization history:: Adult Immunizations up to date. - Family history:: not pertinent. - Social history:: Smoking status: Patient denies any tobacco usage or history of. - Hospitalizations: : No recent hospitalization is reported. ROS: 09:36 Constitutional: Negative for fever, chills, and weight loss, MS/Extremity: + left foot rn and right hip pain Skin: Negative for injury, rash, and discoloration, Neuro: Negative for weakness, numbness, tingling Exam: 09:36 Constitutional: This is a well developed, well nourished patient who is awake, alert, rn and in no acute distress. Skin: Warm, dry MS/ Extremity: Pulses equal, no cyanosis. Neurovascular intact. Full, normal range of motion. Equal circumference. Mild tenderness left mid dorsal foot without ecchymosis or swelling. + mild painful ROM right hip. Vital Signs: 09:30 BP 111 / 79; Pulse 89; Resp 16; Temp 97.0; Pulse Ox 98% on R/A; Pain 8/10; iw 10:30 BP 111 / 67; Pulse 73; Resp 16; Pulse Ox 97% ; bp 12:30 BP 121 / 84; Pulse 70; Resp 16; Pulse Ox 100% ; bp MDM: : Patient medically screened. rn 12:00 Differential diagnosis: fracture, sprain, arthritis. Data reviewed: vital signs, nurses rn notes, radiologic studies, plain films, and as a result, I will discharge patient. Counseling: I had a detailed discussion with the patient and/or guardian regarding: the historical points, exam findings, and any diagnostic results supporting the discharge/admit diagnosis, radiology results, the need for outpatient follow up, to return to the emergency department if symptoms worsen or persist or if there are any questions or concerns that arise at home. Special discussion: I discussed with the patient/guardian in detail that at this point there is no indication for admission to the hospital. It is understood, however, that if the symptoms persist or worsen the patient needs to return immediately for re-evaluation. 08/27 09:34 Order name: XRAY Foot LEFT 3 View; Complete Time: 12:00 rn 08/27 09:34 Order name: XRAY Hip RIGHT 2 view; Complete Time: 12:00 rn Administered Medications: No medications were administered Disposition Summary: 08/27/22 12:00 Discharge Ordered Location: Home rn Problem: new rn Symptoms: have improved rn Condition: Stable rn Diagnosis - Contusion of left foot rn Followup: rn - With: Private Physician - When: As needed - Reason: Recheck today's complaints, Re-evaluation by your physician Discharge Instructions: - Discharge Summary Sheet rn - Foot Contusion rn Forms: - Medication Reconciliation Form rn - Thank You Letter rn - Antibiotic buffing turner and counter - Prescription Opioid Use rn Signatures: Dispatcher [employer] Melia Goncalves RN Brock Doshi MD MD rn Peltier, Brian, RN RN bp
[2022-08-29 07:12] VITALS: TEMP 97
[2022-08-29 07:14] VITALS: BP 121/84; O2SAT 100
== END 2022-08-27 12:36 | disposition home or self-care (01) ==
LOC: ER 09:17
DX: S90.32XA Contusion of left foot, initial encounter (principal); Z98.82 Breast implant status
CPT/HCPCS: 99283

== ENCOUNTER 2023-06-03 13:31 | Emergency (ER) | payer OTHER ==
--- OUTSIDE RECORDS SUMMARY | 2023-06-03 13:38 | XMS REPORT | Continuity of Care Document ---
:1970 Author Organization [facility] t Address [address] [place] [address] [address] [place] [address] Care Team Providers Name Role Phone None, None Primary Care Physician Unavailable ROBE HILL Attending Clinician Unavailable LIDA LOWRY Attending Clinician Unavailable ANDRESSA JETT Attending Clinician Unavailable MIGUEL ANGEL Attending Clinician Unavailable CLARENCE BONILLA Attending Clinician Unavailable Clarence Freeman Attending Clinician Herbert Reeves MD Attending Clinician HERBERT REEVES Attending Clinician Unavailable Pauline ORTIZ, Osiris Attending Clinician Unavailable Jonelle Harris Covid Testing (Not Attending Clinici an 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 94 ON RADHA PORTER FROM [id number] 2021 [facility] 00:00:00 Problems Condition Condition Condition Status Onset Resolution Last Treating Co mments Source Name Details Category Date Date Treatment Clinician Date Herniated Herniated Disease Active 2016-[address] [facility] Med[facility] 00 Center Cervical Cervical Disease [facility] of spine 00:00: Medica l 00 Center Cervical Cervical Disease [facility] 2016[facility] stenosis [facility] spinal of spinal 00:00: Medi hilario canal canal 00 Center Herniated Herniated Disease Active 2016-[address] [facility] [address] [facility] nucleus 2-19 [facility] pulposus, pulposus, 00:00: Medi hilario cervical cervical 00 Center No known No known Disease Unive rs active active ity of problems problems [facility] Allergies, Adverse Reactions, Alerts Allergy Allergy Status Severity Reaction(s) Onset Inactive Treating Comm ents Source Name Type Date Date Clinician No Known DA Active U [facility] Allergie 4-29 [facility] 00:00: Suzanne 00 [facility] NO KNOWN Drug Active Univers ALLERGIE Class ity of S [facility] Social History Social Habit Start Date Stop Date Quantity Comments Source History SDOH [facility] Alcohol Frequency [facility] Center History SDOH [facility] Alcohol Std Drinks [facility] History SDOH [facility] Alcohol Binge Medical [address] Exposure to Yes [facility] SARS-CoV-2 (event) [facility] Alcohol intake 2017-11-18 2017-11-18 .14 /d [facility] 00:00:00 00:00:00 [facility] Tobacco use and 2017-10-30 2017-10-[address] Yoanna kes exposure 00:00:00 00:00:00 [facility] Center Alcohol Comment 2017-10-30 2017-10-30 rare STEPHANIE Frost 00:00:00 00:00:00 [facility] Center Sex [birth year] At [birth year] STEPHANIE Frost 00:00:00 00:00:00 [facility] Center Smoking Status Start Date Stop Date Source Never smoked tobacco [facility] Unknown if ever smoked [facility] Medications Ordered Filled Start Stop Current Ordering Indication Dosage Frequency Signature Comments Components Source Medication Medication Date Date Medication? Clinician (SIG) Name Name cycloSPORIN 2021- No [id number] 100mg Q.5D Take 1 [facility] modified 08-08 capsule Healt h (Neoral) 00:00: 04:59 (100 mg 100 MG 00 :00 total) by capsule mouth in the morning and 1 capsule (100 mg total) in the evening. cycloSPORIN 2021- No [id number] 100mg Q.5D Take 1 [facility] modified 07-11 capsule Healt h (Neoral) 00:00: 04:59 (100 mg 100 MG 00 :00 total) by capsule mouth in the morning and 1 capsule (100 mg total) in the evening. cycloSPORIN 2021- No [id number] 100mg Q.5D Take 1 [facility] E modified 07-11 capsule Healt h (Neoral) 00:00: 00:00 (100 mg 100 MG 00 :00 total) by capsule mouth in the morning and 1 capsule (100 mg total) in the evening. zolpidem Yes TAKE 1/2 UT (Ambien) 10 -01 TO 1 Health MG tablet 00:00: TABLET BY 00 MOUTH DAILY AT BEDTIME zolpidem 2021-0 Yes TAKE 1/2 UT (Ambien) 10 6-01 TO 1 Health MG tablet 00:00: TABLET BY 00 MOUTH DAILY AT BEDTIME zolpidem 2021- Yes TAKE 1/2 UT (Ambien) 10 6-01 TO 1 Health MG tablet 00:00: TABLET BY 00 MOUTH DAILY AT BEDTIME iopamidol 1- No [id number] 100mL 100 mL, Univers (ISOVUE 07-28 Intravenou ity o f 370-500 mL) 15:45: 15:46 s, ONCE, 1 [place] injection 00 :00 dose, Sun Medic al 100 mL 07/28/21 at Branch 1100, Routine iopamidol 2020- No [id number] 100mL 100 mL, Univers (ISOVUE 07-28 Intravenou ity o f 370-500 mL) 15:45: 15:46 s, ONCE, 1 [place] injection 00 :00 dose, Sun Medic al 100 mL 07/28/21 at Branch 1100, Routine amoxicillin 2020-0 Yes [id number] 1{tbl} Take 1 Univers -clavulanat 8-29 tablet by ity of e 875-125 00:00: mouth [place] mg per 00 every 12 Medical tablet (twelve) Branch hours. loratadine 2020-0 Yes [id number] 10mg Take 1 Univers 10 mg 8-29 tablet by ity of tablet 00:00: mouth at [place] 00 bedtime as Medical needed for Branch Allergies. montelukast 2020-0 Yes [id number] 10mg Take 1 Univers 10 mg 8-29 tablet by ity of tablet 00:00: mouth [place] 00 every 24 Medical (twenty-fo Branch ur) hours as needed (symptoms) . benzonatate 2020-0 Yes [id number] 100mg Take 1 Univers 100 mg 8-29 capsule by ity of capsule 00:00: mouth 3 [place] 00 (three) Medical times Branch daily as needed for Cough. amoxicillin 2020-0 Yes [id number] 1{tbl} Take 1 Univers -clavulanat 8-29 tablet by ity of e 875-125 00:00: mouth [place] mg per 00 every 12 Medical tablet (twelve) Branch hours. loratadine 2020-0 Yes [id number] 10mg Take 1 Univers 10 mg 8-29 tablet by ity of tablet 00:00: mouth at [place] 00 bedtime as Medical needed for Branch Allergies. montelukast 2020-0 Yes [id number] 10mg Take 1 Univers 10 mg 8-29 tablet by ity of tablet 00:00: mouth [place] 00 every 24 Medical (twenty-fo Branch ur) hours as needed (symptoms) . benzonatate 2020-0 Yes [id number] 100mg Take 1 Univers 100 mg 8-29 capsule by ity of capsule 00:00: mouth 3 [place] 00 (three) Medical times Branch daily as needed for Cough. amoxicillin Yes [id number] 1{tbl} Take 1 Univers -clavulanat 8-29 tablet by ity of e 875-125 00:00: mouth [place] mg per 00 every 12 Medical tablet (twelve) Branch hours. loratadine Yes [id number] 10mg Take 1 Univers 10 mg 8-29 tablet by ity of tablet 00:00: mouth at [place] 00 bedtime as Medical needed for Branch Allergies. montelukast Yes [id number] 10mg Take 1 Univers 10 mg 8-29 tablet by ity of tablet 00:00: mouth [place] 00 every 24 Medical (twenty-fo Branch ur) hours as needed (symptoms) . benzonatate Yes [id number] 100mg Take 1 Univers 100 mg 8-29 capsule by ity of capsule 00:00: mouth 3 [place] 00 (three) Medical times Branch daily as needed for Cough. maalox:diph 2019- 2020- No 15mL 15 mL, Uni vers enhydrAMINE 05-30 Oral, ity of :lidocaine2 15:30: 14:31 [place]CE, 1 [place] %viscous 00 :00 dose, Wed Medica l 1:1:1: 05/30/20 at Branch suspension 1030, (COMPOUNDED Routine ) iohexol 2019- 2020- No 120mL 120 mL, Unive rs (OMNIPAQUE 05-30 Intravenou it y of 350 13:30: 13:40 s, ONCE, 1 [place] BULK-150 00 :00 dose, Wed Medica l mL) 05/30/20 at Branch injection 0830, 120 mL Routine sucralfate 2019-0 Yes [id number] 1g Take 1 U nivers 1 gram - tablet by ity of tablet 00:00: mouth [place] 00 before Medical meals and Branch at bedtime. dicyclomine 2019-0 Yes [id number] 10mg Take 1 Univers (BENTYL) 10 - capsule by it y of mg capsule 00:00: mouth [place] 00 every 8 Medical (eight) Branch hours as needed for Abdominal pain. ondansetron 2019-0 Yes [id number] 4mg Take 1 Univers 4 mg - tablet by ity of disintegrat 00:00: mouth [place] ing tablet 00 every 8 Medica l (eight) Branch hours as needed for Nausea and Vomiting (N/V). sucralfate 2020-0 Yes [id number] 1g Take 1 U nivers 1 gram 7-01 tablet by ity of tablet 00:00: mouth [place] 00 before Medical meals and Branch at bedtime. dicyclomine 2020-0 Yes [id number] 10mg Take 1 Univers (BENTYL) 10 7-01 capsule by it y of mg capsule 00:00: mouth [place] 00 every 8 Medical (eight) Branch hours as needed for Abdominal pain. ondansetron 2020-0 Yes [id number] 4mg Take 1 Univers 4 mg 7-01 tablet by ity of disintegrat 00:00: mouth [place] ing tablet 00 every 8 Medica l (eight) Branch hours as needed for Nausea and Vomiting (N/V). sucralfate 2020-0 Yes [id number] 1g Take 1 U nivers 1 gram 7-01 tablet by ity of tablet 00:00: mouth [place] 00 before Medical meals and Branch at bedtime. dicyclomine 2020-0 Yes [id number] 10mg Take 1 Univers (BENTYL) 10 7-01 capsule by it y of mg capsule 00:00: mouth [place] 00 every 8 Medical (eight) Branch hours as needed for Abdominal pain. ondansetron 2020-0 Yes [id number] 4mg Take 1 Univers 4 mg 7-01 tablet by ity of disintegrat 00:00: mouth [place] ing tablet 00 every 8 Medica l (eight) Branch hours as needed for Nausea and Vomiting (N/V). sucralfate 2020-0 Yes [id number] 1g Take 1 U nivers 1 gram 7-01 tablet by ity of tablet 00:00: mouth [place] 00 before Medical meals and Branch at bedtime. dicyclomine 2020-0 Yes [id number] 10mg Take 1 Univers (BENTYL) 10 7-01 capsule by it y of mg capsule 00:00: mouth [place] 00 every 8 Medical (eight) Branch hours as needed for Abdominal pain. ondansetron 2020-0 Yes [id number] 4mg Take 1 Univers 4 mg 7-01 tablet by ity of disintegrat 00:00: mouth [place] ing tablet 00 every 8 Medica l (eight) Branch hours as needed for Nausea and Vomiting (N/V). sucralfate 2020-0 Yes [id number] 1g Take 1 U nivers 1 gram 7-01 tablet by ity of tablet 00:00: mouth [place] 00 before Medical meals and Branch at bedtime. dicyclomine 2020-0 Yes [id number] 10mg Take 1 Univers (BENTYL) 10 7-01 capsule by it y of mg capsule 00:00: mouth [place] 00 every 8 Medical (eight) Branch hours as needed for Abdominal pain. ondansetron 2020-0 Yes [id number] 4mg Take 1 Univers 4 mg 7-01 tablet by ity of disintegrat 00:00: mouth [place] ing tablet 00 every 8 Medica l (eight) Branch hours as needed for Nausea and Vomiting (N/V). sucralfate 2020-0 Yes [id number] 1g Take 1 U nivers 1 gram 7-01 tablet by ity of tablet 00:00: mouth [place] 00 before Medical meals and Branch at bedtime. dicyclomine 2020-0 Yes [id number] 10mg Take 1 Univers (BENTYL) 10 7-01 capsule by it y of mg capsule 00:00: mouth [place] 00 every 8 Medical (eight) Branch hours as needed for Abdominal pain. ondansetron 2020-0 Yes [id number] 4mg Take 1 Univers 4 mg 7-01 tablet by ity of disintegrat 00:00: mouth [place] ing tablet 00 every 8 Medica l (eight) Branch hours as needed for Nausea and Vomiting (N/V). sucralfate 2020-0 Yes [id number] 1g Take 1 U nivers 1 gram 7-01 tablet by ity of tablet 00:00: mouth [place] 00 before Medical meals and Branch at bedtime. dicyclomine 2020-0 Yes [id number] 10mg Take 1 Univers (BENTYL) 10 7-01 capsule by it y of mg capsule 00:00: mouth [place] 00 every 8 Medical (eight) Branch hours as needed for Abdominal pain. ondansetron 2020-0 Yes [id number] 4mg Take 1 Univers 4 mg 7-01 tablet by ity of disintegrat 00:00: mouth [place] ing tablet 00 every 8 Medica l (eight) Branch hours as needed for Nausea and Vomiting (N/V). omeprazole 2020-0 2020- No [id number] 20mg Take 1 Univers 20 mg 7-01 08-01 capsule by ity of capsule 00:00: 04:59 mouth [place] 00 :00 daily for Medical 30 days. Branch Immunizations Ordered Immunization Filled Immunization Date Status Commen ts Source Name Name Influenza Three-TIV 2017-11-18 [facility] Influenza Three-TIV 2017-11-18 [facility] Influenza Three-TIV 2017-11-18 Com[facility] Influenza Three-TIV 2017-11-18 Completed [facility] Center Influenza Three-TIV 2017-11-18 [facility] Vital Signs [...] Heart rate 2022-07-08 17:31:00 83 /[facility] Body temperature 2022-07-08 17:31:00 36.17 [facility] Body height 2022-07-08 17:31:00 [facility].1 cm [facility] Body weight 2022-07-08 17:31:00 89.631 [facility] BMI 2022-07-08 17:31:00 32.88 kg[facility]m2 [facility] Systolic blood 2021-12-13 16:28:00 133 mm[Hg] Univer sity of [facility] Diastolic blood 2021-12-13 16:28:00 89 mm[Hg] Unive rsity of [facility] Heart rate 2021-12-13 16:28:00 76 /min Universi [facility] Body temperature 2021-12-13 16:28:00 36.44 Francia Univ ersity [facility] Respiratory rate 2021-12-13 16:28:00 18 /min Univ ersity [facility] Body height 2021-12-13 16:28:00 165.1 cm [facility] [place] [facility] Body weight 2021-12-13 16:28:00 86.637 kg [facility] [place] [facility] BMI 2021-12-13 16:28:00 31.78 kg/m2 [facility] [place] [facility] Oxygen saturation in 2021-12-13 16:28:00 97 /min University of Arterial blood by [facility] Pulse oximetry Branch Systolic blood 2021-07-28 16:00:00 126 mm[Hg] Univer sity of [facility] [place] [facility] Diastolic blood 2021-07-28 16:00:00 82 mm[Hg] Unive rsity of [facility] [place] [facility] Heart rate 2021-07-28 16:00:00 75 /min [facility]i [facility] [place] [facility] Respiratory rate 2021-07-28 16:00:00 14 /min Univ ers[facility] [place] [facility] Oxygen saturation in 2021-07-28 16:00:00 96 /min University of Arterial blood by [facility] Pulse oximetry Branch Body temperature 2021-07-28 14:35:00 37.56 Francia Univ ers[facility] [place] [facility] Body weight 2021-07-28 14:35:00 84.369 kg [facility]i [facility] [place] [facility] BMI 2021-07-28 14:35:00 31.93 kg/m2 [facility] [place] [facility] Systolic blood 2020-10-03 19:36:00 110 mm[Hg] Univer sity of [facility] [place] [facility] Diastolic blood 2020-10-03 19:36:00 77 mm[Hg] Unive rsity of [facility] [place] [facility] Heart rate 2020-10-03 19:36:00 84 /min Universi [facility] [place] [facility] Body temperature 2020-10-03 19:36:00 36.61 Francia Univ ersity [facility] [place] [facility] Respiratory rate 2020-10-03 19:36:00 14 /min Univ ers[facility] [place] [facility] Body weight 2020-10-03 19:36:00 81.647 kg [facility]i [facility] [place] [facility] BMI 2020-10-03 19:36:00 30.90 kg/m2 [facility] [place] [facility] Oxygen saturation in 2020-10-03 19:36:00 98 /min University of Arterial blood by [facility]io Pulse oximetry Branch Systolic blood 2020-10-03 19:36:00 110 mm[Hg] Univer sity of [facility] [place] [facility] Diastolic blood 2020-10-03 19:36:00 77 mm[Hg] Unive rsity of [facility] [place] [facility] Heart rate 2020-10-03 19:36:00 84 /min [facility]i [facility] [place] [facility] Body temperature 2020-10-03 19:36:00 36.61 Francia Univ [facility] [place] [facility] Respiratory rate 2020-10-03 19:36:00 14 /min Univ ers[facility] [place] [facility] Body weight 2020-10-03 19:36:00 81.647 kg [facility] [place] [facility] BMI 2020-10-03 19:36:00 30.90 kg/m2 [facility] [place] [facility] Oxygen saturation in 2020-10-03 19:36:00 98 /min University of Arterial blood by [facility] Pulse oximetry Branch Systolic blood 2020-05-30 14:00:00 129 mm[Hg] Univer sity of [facility] [place] [facility] Diastolic blood 2020-05-30 14:00:00 80 mm[Hg] Unive rsity of [facility] [place] [facility] Heart rate 2020-05-30 14:00:00 62 /min [facility]i [facility] [place] [facility] Respiratory rate 2020-05-30 14:00:00 12 /min Univ ers[facility] [place] [facility] Oxygen saturation in 2020-05-30 14:00:00 97 /min University of Arterial blood by [facility] Pulse oximetry Branch Body temperature 2020-05-30 12:26:00 36.67 Francia Univ ers[facility] [place] [facility] Body height 2020-05-30 12:26:00 162.6 cm [facility] [place] [facility] Body weight 2020-05-30 12:26:00 81.647 kg [facility] [place] [facility] BMI 2020-05-30 12:26:00 30.90 kg/m2 [facility] [place] [facility] Systolic blood 2020-05-30 14:00:00 129 mm[Hg] Univer sity of [facility] [place] [facility] Diastolic blood 2020-05-30 14:00:00 80 mm[Hg] Unive rsity of [facility] [place] [facility] Heart rate 2020-05-30 14:00:00 62 /min [facility]i [facility] [place] [facility] Respiratory rate 2020-05-30 14:00:00 12 /min [facility] Oxygen saturation in 2020-05-30 14:00:00 97 /min [facility] Arterial blood by [facility] Pulse oximetry Branch Body temperature 2020-05-30 12:26:00 36.67 Francia [facility] Body height 2020-05-30 12:26:00 162.6 cm [facility] Body weight 2020-05-30 12:26:00 81.647 kg [facility] BMI 2020-05-30 12:26:00 30.90 kg/m2 [facility] Procedures Procedure Date / Time Performing Clinician Source Performed CONSENT/REFUSAL FOR 2021-12-13 16:20:38 Doctor Unassigned, No Un iversity [facility] DIAGNOSIS AND TREATMENT Name [facility] CT THORAX W CONTRAST 2021-07-28 15:50:40 Herbert Reeves [facility] LACTIC ACID WHOLE BLOOD 2021-07-28 15:31:00 Herbert Reeves [facility] TROPONIN I 2021-07-28 15:30:00 Leandro [facility] COMP. METABOLIC PANEL 2021-07-28 15:30:00 Herbert Reeves [facility] ([id number]) [facility] CBC WITH DIFF 2021-07-28 15:30:00 Kennett [facility] N-TERMINAL PRO-BNP 2021-07-28 15:30:00 Herbert Reeves [facility] XR CHEST 1 VW 2021-07-28 15:11:32 Herbert Reeves [facility] COVID-19 (ID NOW RAPID 2021-07-28 14:51:00 Herbert Reeves [facility] TESTING) Medical [place] NOTICE OF PRIVACY 2021-07-28 14:29:17 Doctor Unassigned, No [facility] PRACTICES Name Medical Branch CONSENT/REFUSAL FOR 2021-07-28 14:29:04 Doctor Unassigned, No Un iversity [facility] DIAGNOSIS AND TREATMENT Name Medical Branch CONSENT/REFUSAL FOR 2020-10-03 19:26:01 Doctor Unassigned, No Un iversity [facility] DIAGNOSIS AND TREATMENT Name [facility] CT ABDOMEN PELVIS W 2020-05-30 13:49:07 Andres Rodríguez [facility] CONTRAST [facility] Branch LIPASE 2020-05-30 12:56:00 Singer [facility] COMP. METABOLIC PANEL 2020-05-30 12:56:00 Andres Rodríguez [facility] ([id number]) [facility] CBC WITH DIFFERENTIAL 2020-05-30 12:56:00 Andres Rodríguez [facility] URINALYSIS 2020-05-30 12:56:00 Rodríguez, [facility] Encounters Start End Encounter Admission Attending Care Care Encounter Source Date/Time Date/Time Type Type Clinicians Facility Department ID 2023-02-04 Outpatient [facility] [id number] [place] 09:05:[id number] [facility] 2022-10-09 Outpatient [facility] [id number] [place] 14:04:[id number] [facility] 2022-10-02 Outpatient [facility] [id number] [place] 08:11:[id number] [facility] 2022-07-09 Outpatient [facility] [id number] [place] 08:36:[id number] [facility] 2022-07-08 Outpatient [facility] [id number] [place] 12:07:[id number] [facility] 2022-07-01 Outpatient [facility] [id number] [place] 10:09:[id number] [facility] 2022 Outpatient NOVA, [facility] [id number] [place] 14:53:01 BOCCHOLO [id number] [facility] 2022-05-13 Outpatient [facility] [id number] [place] 06:41:[id number] [facility] 2022-05-01 Outpatient [facility] [id number] [place] 11:37:[id number] [facility] 2023-04-30 2023-04-30 Outpatient CYNDY LOWRY [id number] Cyndy 14:00:00 14:00:00 LIDA [facility] 2022-10-14 2022-10-14 Outpatient MALIHA [facility] [id number] [place] 09:30:00 09:30:00 Critical access hospital 2022-08-19 2022-08-19 Outpatient NOVA [facility] [id number] [place] 15:00:00 15:00:[address] [facility] 2022-08-08 2022-08-08 Office Maliha [facility] 4 [id number] [place] 11:30:00 12:26:15 Visit Andressa [id number] He alth [id number] [id number] 2022-07-11 2022-07-11 Office Maliha [facility] 4 [id number] [place] 11:25:00 12:49:31 Visit Andressa [id number] He alth [id number] [id number] 2022-07-11 2022-07-11 [facility] [id number] [place] 11:25:00 11:25:[address] [facility] 2022-07-08 2022-07-08 Office Nova [facility] 6410 [id number] [place] 13:00:00 14:09:34 Visit Robe D[facility]TON [id number] Health [id number] [id number] 2022-02-05 2022-02-05 Outpatient RAE_NOEL [facility] [id number] [facility] 03:21:00 03:[place] [id number] [facility] Program 2021-12-13 2021-12-13 Emergency [facility] ERT [id number] Univers 10:31:00 11:47:00 CLARENCE long of [facility] 2021-12-13 2021-12-13 Emergency Interior, [facility] [id number] Univers 10:31:00 11:47:00 Clarence PEDRAZA [id number] ity of [place] 4.2.7.2.686 [facility] [id number] [address] 2021-07-28 2021-07-28 Emergency [facility] [id number] Univers 09:36:00 12:38:00 Herbert Pedraza [id number] i ty of [place] 4.2.7.2.686 [facility] [id number] [place] [address] Branch 2021-07-28 2021-07-28 Emergency X LEANDRO, [facility] ERT [id number] Univers 09:36:00 09:36:00 HERBERT ity of [facility] 2020-10-04 2020-10-04 Osiris Cruz [id number] Univers 00:00:00 00:00:00 (Out) LOLY [id number] it y of [facility] 4.2.7.2.686 Junior as [id number] [address] 2020-10-04 2020-10-04 Letter District)RAIZA [id number] Univers 00:00:00 00:00:00 (Out) Jonelle LOLY [id number] ity of [facility] 4.[place].7.2.686 [place] [id number] [facility] ([facility] Health 019 [facility] 2020-10-04 2020-10-04 Osiris Cruz [id number] 00:00:00 00:00:00 (Out) LOLY [id number] [facility] 4.2.7.2.686 [id number] [facility] 2020-10-04 2020-10-04 Letter District)RAIZA [id number] 00:00:00 00:00:00 (Out) Jonelle LOLY 350.1.13.10 [facility] [id number] Testing [id number] ([facility] Health 019 2020-10-03 2020-10-03 Emergency Christ, [facility] [id number] Univers 13:39:00 14:37:00 Angelique Pedraza [id number] i ty of [place] 4.2.7.2.686 [facility] [id number] [address] 2020-10-03 2020-10-03 Emergency Christ, K [facility] [id number] 13:39:00 14:37:00 Angelique Pedraza [id number] [place] [id number] [facility] 2020-10-03 2020-10-03 Emergency X [facility] ERT [id number] Univers 13:27:00 13:27:00 [facility] 2020-05-30 2020-05-30 Emergency , [facility] [id number] 07:29:53 09:55:00 Andres Pedraza [id number] [place] 4.2.7.2.[id number] [facility] 2020-05-30 2020-05-30 Emergency Rodríguez, [facility] [id number] Univers 07:29:53 09:55:00 Andres Pedraza [id number] i ty of [place] [id number] [facility] [phone] [address] 2020-05-30 2020-05-30 Emergency X [facility] ERT [id number] [employer] 07:29:53 07:29:53 ANDRES [facility] Results Test Test Test Results Result Source Description Time Comments Comments CT THORAX W 2021-06-30. No evidence of Univer sity of CONTRAST 29 consolidation or effusion. [facility] 17:02:02 2. Small subcentimeter Br anch pulmonary nodule. Current recommendations forpulmonary nodules of the size are as follows, if the patient has a personalhistory of neoplasm or high risk factors for development of lung cancerrecommend a follow-up chest CT in 12 months. ?If the above not apply,current recommendations are additional follow-up. RL: 3201AFC: [id number] CLINICAL INFORMATION: Cough, persistent pneumonia, effusion, as [...] to ALARA (As Low As Reasonably Achievable). [facility], Radiant Results Inft User - 07/28/2021 [...] not apply,current recommendations are additional follow-up.RL: 3201AFC: 60086 THORAX W 2021-06-30. No evidence of Univer sity of CONTRAST 29 consolidation or effusion. [facility] 17:02:02 2. Small subcentimeter Br anch pulmonary nodule. Current recommendations forpulmonary nodules of the size are as follows, if the patient has a personalhistory of neoplasm or high risk factors for development of lung cancerrecommend a follow-up chest CT in 12 months. ?If the above not apply,current recommendations are additional follow-up. RL: 3201AFC: 08917 CLINICAL INFORMATION: Cough, persistent pneumonia, effusion, as [...] to ALARA (As Low As Reasonably Achievable). [facility], Radiant Results Inft User - 07/28/2021 [...] not apply,current recommendations are additional follow-up.RL: 3201AFC: 40689 ONIN I 2021-07-28 16:09:03 Test Item Value Reference Range Interpretation Comme nts TROPONIN I (test code = 0.002 ng/mL See_Comment [Au tomated message] The 1026844855) system which ge nerated this result tra [...] biotin. Lab Interpretation Normal (test code = 73149-5) [facility] [id number] 16:09:03 Test Item Value Reference Range Interpretation Comments TROPONIN I (test code = 0.002 ng/mL See_Comment [Au tomated 4133060829) message] The [employer] stem which generated this result transmitted reference range : <=0.034. The reference range was not used to interpret this result as normal/abnormal . MELCHOR (test code = MELCHOR) Lab Interpretation Normal (test code = 78454-0) [facility] [id number] 16:06:02 Test Item Value Reference Range Interpretation Comments NT-proBNP (test code 46 pg/mL See_Comment [Autom ated = 8328133051) message] The system which generated this result transmitted reference range : <=125. The reference range was not used to interpret this result as normal/abnormal . MELCHOR (test code = MELCHOR) Biotin has been reported to cause a negative bias, interpret results relative to patient's use of biotin. Lab Interpretation Normal (test code = 50948-3) [facility] [id number] 16:06:02 Test Item Value Reference Range Interpretation Comments NT-proBNP (test code = 46 pg/mL See_Comment [Aut omated message] 4073762366) The system [employer] generated this result transmitted ref erence range: <=125. T he reference range was not used to int erpret this result as normal/abnormal . MELCHOR (test code = MELCHOR) Lab Interpretation (test Normal code = 30308-8) [facility]. METABOLIC PANEL (15333)2021-07-28 15:57:23 Test Item Value Reference Range Interpretation Comments NA (test code = 140 mmol/L 135-145 0039380469) K (test code = 3.9 mmol/L 3.5-5.0 7099590108) CL (test code = 103 mmol/L 98-108 8034883720) CO2 TOTAL (test code = 29 mmol/L 23-31 3172393643) AGAP (test code = 2-16 3391956923) BUN (test code = 13 mg/dL 7-23 4133039956) GLUCOSE (test code = 101 mg/dL 70-110 5067880414) CREATININE (test code = 0.73 mg/dL 0.50-1.04 3877470307) TOTAL BILI (test code = 0.6 mg/dL 0.1-1.7 3518974270) CALCIUM (test code = 9.8 mg/dL 8.6-10.6 3462045102) T PROTEIN (test code = 8.2 g/dL 6.3-8.2 7029216299) ALBUMIN (test code = 4.9 g/dL 3.5-5.0 1227040805) ALK PHOS (test code = 109 U/L 34-122 8115733321) ALTv (test code = 51 U/L 5-35 H 1742-6) AST(SGOT) (test code = 45 U/L 13-40 H 4511900538) eGFR (test code = mL/min/1.73m2 9359983839) MELCHOR (test code = MELCHOR) Association of [...] tests). Lab Interpretation Abnormal (test code = 94703-2) [facility]. METABOLIC PANEL (41080)2021-07-28 15:57:23 Test Item Value Reference Range Interpretation Comments NA (test code = 0158647510) 140 mmol/L 135-145 K (test code = 2988396760) 3.9 mmol/L 3.5-5.0 CL (test code = 4071429434) 103 mmol/L 98-108 CO2 TOTAL (test code = 7804449918) 29 mmol/L 23-31 AGAP (test code = 8104229679) 2-16 BUN (test code = 7434734936) 13 mg/dL 7-23 GLUCOSE (test code = 1996146130) 101 mg/dL 70-110 CREATININE (test code = 0.73 mg/dL 0.50-1.04 8671948101) TOTAL BILI (test code = 0.6 mg/dL 0.1-1.5 6112574457) CALCIUM (test code = 2963847140) 9.8 mg/dL 8.6-10.6 T PROTEIN (test code = 6981195098) 8.2 g/dL 6.3-8.2 ALBUMIN (test code = 4048088503) 4.9 g/dL 3.5-5.0 ALK PHOS (test code = 9038367463) 109 U/L 34-122 ALTv (test code = 1742-6) 51 U/L 5-35 H AST(SGOT) (test code = 8181474655) 45 U/L 13-40 H eGFR (test code = 2331112737) mL/min/1.73m2 MELCHOR (test code = MELCHOR) Lab Interpretation (test code = Abnormal 56824-9) [facility] 1 [id number] 15:50:53No acute pulmonary disease. RL: 3201AFC: 10197 History: cough Ordering Physician: HERBERT REEVES COMPARISON:None FINDINGS: Single AP viewthe chest is provided. The trachea is midline. The cardiomediastinal silhouette is within normal limits. ?The lungs areclear. ?The costophrenic recesses are clear. Breast prostheses are noted. [facility], Radiant Results Inft User - 07/28/2021 10:52 AM CDT History: cough Ordering Physician: HERBERT REEVES COMPARISON:NoneFINDINGS: Single AP view the chest is provided. The trachea is midline. The cardiomediastinal silhouette is within normal limits. The lungs areclear. The costophrenic recesses are clear. Breast prostheses are noted.IMPRESSIONNo acute pulmonary disease.RL: 3201AFC: 64684Uaffxqkfagmglx signed by Ermelinda Farrell MD at 07/28/2021 10:50 AMUnThe Hospitals of Providence [facility] CampusXR CHEST 1 [id number] 15:50:53No acute pulmonary disease. RL: 3201AFC: 37503 History: cough Ordering Physician: HERBERT REEVES COMPARISON:None [...] prostheses are noted.IMPRESSIONNo acute pulmonary disease.RL: 3201AFC: 24701Aqveaopdsyeeue signed by Ermelinda Farrell MD at 07/28/2021 10:50 AMUnIm[facility] WITH [id number] 15:41:22 Test Item Value Reference Range Interpretation Comments WBC (test code = See_Comment [Automated message] 5890-2) The system [employer] generated this result transmitted ref erence range: 4.30 - 1 1.10 10*3/?L. The re ference range was not u sed to interpret this result as normal/abnor mal. RBC (test code = See_Comment [Automated message] 789-8) The system [employer] generated this result transmitted ref erence range: [...] RDW-SD (test code 42.5 fL 39.0-49.9 = 71456-8) RDW-CV (test code 13.6 % 12.0-15.5 = 788-0) PLT (test code = See_Comment [Automated message] 777-3) The system whic h generated this result transmitted ref erence range: 166 - 35 8 10*3/?L. The re ference range was not u sed to interpret this result as normal/abnor mal. MPV (test code = 10.5 fL 9.5-12.9 96811-6) NRBC/100 WBC (test See_Comment [Automat ed message] code = 9002277578) The syste m which generated this result transmitted ref erence range: 0.0 - 10 .0 /100 WBCs. The refer ence range was not u sed to interpret this result as normal/abnor mal. NRBC x10^3 (test <0.01 See_Comment [Automated message] code = 0659206136) The syste m which generated this result transmitted ref erence range: 10*3/?L. The reference range was not used to interpr et this result as normal/abnormal . GRAN MAT (NEUT) % 59.8 % (test code = 770-8) IMM GRAN % (test 0.20 % code = 3172358142) LYMPH % (test code 27.3 % = 736-9) MONO % (test code 10.3 % = 5905-5) EOS % (test code = 1.6 % 713-8) BASO % (test code 0.8 % = 706-2) GRAN MAT 3.02 10*3/uL 1.88-7.09 x10^3(ANC) (test code = 8566486783) IMM GRAN x10^3 <0.03 0.00-0.06 (test code = 9809172273) LYMPH x10^3 (test 1.38 10*3/uL 1.32-3.29 code = 731-0) MONO x10^3 (test 0.52 10*3/uL 0.33-0.92 code = 742-7) EOS x10^3 (test 0.08 10*3/uL 0.03-0.39 code = 711-2) BASO x10^3 (test 0.04 10*3/uL 0.01-0.07 code = 704-7) [facility] WITH [id number] 15:41:22 Test Item Value Reference Range Interpretation Comments WBC (test code = See_Comment [Automated message] 9290-2) The system [employer] generated this result transmitted ref erence range: 4.30 - 1 1.10 10*3/?L. The re ference range was not u sed to interpret this result as normal/abnor mal. RBC (test code = See_Comment [Automated message] 589-8) The system [employer] generated this result transmitted ref erence range: [...] RDW-SD (test code 42.5 fL 39.0-49.9 = 78879-3) RDW-CV (test code 13.6 % 12.0-15.5 = 788-0) PLT (test code = See_Comment [Automated message] 457-3) The system [employer] generated this result transmitted ref erence range: 166 - 35 8 10*3/?L. The re ference range was not u sed to interpret this result as normal/abnor mal. MPV (test code = 10.5 fL 9.5-12.9 05219-5) NRBC/100 WBC (test See_Comment [Automat ed message] code = 5600765571) The [employer] which generated this result transmitted ref erence range: 0.0 - 10 .0 /100 WBCs. The refer ence range was not u sed to interpret this result as normal/abnor mal. NRBC x10^3 (test <0.01 See_Comment [Automated message] code = 8468958858) The syste m which generated this result transmitted ref erence range: 10*3/?L. The reference range was not used to interpr et this result as normal/abnormal . GRAN MAT (NEUT) % 59.8 % (test code = 770-8) IMM GRAN % (test 0.20 % code = 4429707816) LYMPH % (test code 27.3 % = 736-9) MONO % (test code 10.3 % = 5905-5) EOS % (test code = 1.6 % 713-8) BASO % (test code 0.8 % = 706-2) GRAN MAT 3.02 10*3/uL 1.88-7.09 x10^3(ANC) (test code = 9860826355) IMM GRAN x10^3 <0.03 0.00-0.06 (test code = 8294176901) LYMPH x10^3 (test 1.38 10*3/uL 1.32-3.29 code = 731-0) MONO x10^3 (test 0.52 10*3/uL 0.33-0.92 code = 742-7) EOS x10^3 (test 0.08 10*3/uL 0.03-0.39 code = 711-2) BASO x10^3 (test 0.04 10*3/uL 0.01-0.07 code = 704-7) [facility] Acid Whole [id number] 15:39:36 Test Item Value Reference Range Interpretation Comments LACTIC ACID (test code = 0.69 mmol/L 0.50-2.20 0821664317) Lab Interpretation (test code = Normal 72470-8) [facility] Acid Whole [id number] 15:39:36 Test Item Value Reference Range Interpretation Comments LACTIC ACID (test code = 0.69 mmol/L 0.50-2.20 9222414619) Lab Interpretation (test code = Normal 66158-4) [facility] CenterCOVID[facility] (ID NOW RAPID TESTING)2021-07-28 15:22:42 Test Item Value Reference Range Interpretation Comments SARS-CoV-2 Rapid ID NOW Not Detected Not Detected (test code = 09085-2) MELCHOR (test code = MELCHOR) ID NOW COVID-19 Assay is an isothermal nucleic acid amplification test intended for the qualitative detection of nucleic acid from SARS-CoV-2 viral RNA in nasopharyngeal (WOOD FLOOR LAYER) specimens. It is used under Emergency Use [...] indicated. Lab Interpretation Normal (test code = 93825-0) [facility] (ID NOW RAPID TESTING)2021-07-28 15:22:42 Test Item Value Reference Range Interpretation Comments SARS-CoV-2 Rapid ID NOW (test Not Detected Not Detected code = 01994-0) MELCHOR (test code = MELCHOR) Lab Interpretation (test code = Normal 76322-5) [facility] CenterCT ABDOMEN PELVIS W [id number] 14:01:31CT Abdomen and Pelvis with intravenous contrast. [...] No acute intra-abdominal or pelvic pathology detected. [facility], Radiant Results Inft User - 05/30/2020 [...] No acute intra-abdominal or pelvic pathology detected. [facility] CenterURINALYSIS2020-07-01 13:36:00 Test Item Value Reference Range Interpretation Comments APPEARANCE (test code = Hazy Clear A 0668524667) COLOR (test code = Jen Yellow A 6300079909) PH (test code = 4.8-8.0 3892433285) SP GRAVITY (test code = 1.003-1.030 1961427726) GLU U QUAL (test code = Normal Normal 0653156801) BLOOD (test code = 1+ Negative A 5391143859) KETONES (test code = Negative Negative 2162761587) PROTEIN (test code = Negative Negative 2887-8) UROBILIN (test code = Normal Normal 8616483233) BILIRUBIN (test code = Negative Negative 5312354227) NITRITE (test code = Negative Negative 9375630248) LEUK TRINITY (test code = Negative Negative 9727548293) RBC/HPF (test code = See_Comment H [Autom ated message] 1859962913) The system [employer] generated this result transmitted ref erence range: 0 - 3 HP F. The reference range was not used to int erpret this result as normal/abnormal . WBC/HPF (test code = See_Comment [Autom ated message] 9041973912) The system [employer] generated this result transmitted ref erence range: 0 - 5 HP F. The reference range was not used to int erpret this result as normal/abnormal . BACTERIA (test code = Few Negative A 7808921617) MUCOUS (test code = Marked Negative LPF A 4041383036) SQ EPITH (test code = HPF 1226585322) CA OXALATE (test code = See_Comment H [Au tomated message] 7455985891) The system [employer] generated this result transmitted ref erence range: <=1 HPF. The reference range was not used to int erpret this result as normal/abnormal . HYAL CAST (test code = See_Comment H [Aut omated message] 0293403579) The system [employer] generated this result transmitted ref erence range: <=2 LPF. The reference range was not used to int erpret this result as normal/abnormal . Lab Interpretation (test Abnormal code = 27161-7) [facility]. METABOLIC PANEL (32703)2020-05-30 13:19:00 Test Item Value Reference Range Interpretation Comments NA (test code = 138 mmol/L 135-145 8522801644) K (test code = 3.8 mmol/L 3.5-5 4985566605) CL (test code = 104 mmol/L 98-108 4296144116) CO2 TOTAL (test code = 28 mmol/L 23-31 5406439839) AGAP (test code = 2-16 1015463970) BUN (test code = 18 mg/dL 7-23 5818379395) GLUCOSE (test code = 107 mg/dL 70-110 1040992738) CREATININE (test code 0.68 mg/dL 0.5-1.04 = 6431655470) TOTAL BILI (test code 0.6 mg/dL 0.1-1.1 = 4641110007) CALCIUM (test code = 9.3 mg/dL 8.6-10.6 5253700344) T PROTEIN (test code = 7.4 g/dL 6.3-8.2 6241493599) ALBUMIN (test code = 4.4 g/dL 3.5-5 9028054634) ALK PHOS (test code = 74 U/L 34-122 5569577893) ALTv (test code = 20 U/L 5-35 1742-6) AST(SGOT) (test code = 26 U/L 13-40 7187931455) eGFR Calculation mL/min/1.73m2 (Non-) (test code = 4013860797) eGFR Calculation mL/min/1.73m2 () (test code = 5262240465) MELCHOR (test code = MELCHOR) Association of [...] or urine or abnormalities in imaging tests). [facility] CenterLIPASE2020-07-[facility] 13:19:00 Test Item Value Reference Range Interpretation Comments LIPASE (test code = 3424679933) 103 U/L 0-220 Lab Interpretation (test code = Normal 00579-8) [facility] CenterCBC WITH [id number] 13:11:00 Test Item Value Reference Range Interpretation Comments WBC (test code = See_Comment [Automated message] 6690-2) The system [employer] generated this result transmitted ref erence range: 4.30 - 1 1.10 10*3/?L. The re ference range was not u sed to interpret this result as normal/abnor mal. RBC (test code = See_Comment [Automated message] 789-8) The system [employer] generated this result transmitted ref erence range: [...] RDW-SD (test code 39.2 fL 39-49.9 = 68048-3) RDW-CV (test code 12.7 % 12-15.5 = 788-0) PLT (test code = See_Comment [Automated message] 777-3) The system [employer] generated this result transmitted ref erence range: 166 - 35 8 10*3/?L. The re ference range was not u sed to interpret this result as normal/abnor mal. MPV (test code = 10.9 fL 9.5-12.9 30684-6) NRBC/100 WBC (test See_Comment [Automat ed message] code = 3806201656) The syste m which generated this result transmitted ref erence range: 0.0 - 10 .0 /100 WBCs. The refer ence range was not u sed to interpret this result as normal/abnor mal. NRBC x10^3 (test <0.01 See_Comment [Automated message] code = 1071191295) The syste m which generated this result transmitted ref erence range: 10*3/?L. The reference range was not used to interpr et this result as normal/abnormal . GRAN MAT (NEUT) % 47.6 % (test code = 770-8) IMM GRAN % (test 0.20 % code = 5082884194) LYMPH % (test code 39.4 % = 736-9) MONO % (test code 8.4 % = 5905-5) EOS % (test code = 3.6 % 713-8) BASO % (test code 0.8 % = 706-2) GRAN MAT 2.49 10*3/uL 1.88-7.09 x10^3(ANC) (test code = 4185544405) IMM GRAN x10^3 <0.03 0-0.06 (test code = 0408480912) LYMPH x10^3 (test 2.06 10*3/uL 1.32-3.29 code = 731-0) MONO x10^3 (test 0.44 10*3/uL 0.33-0.92 code = 742-7) EOS x10^3 (test 0.19 10*3/uL 0.03-0.39 code = 711-2) BASO x10^3 (test 0.04 10*3/uL 0.01-0.07 code = 704-7) [facility] CenterUA RFLX MICROSCOPIC [id number] 14:29:00 Test Item Value Reference Range Interpretation [...] Criteria met (test code = UACULT) UA [id number] 14:29:00 Test Item Value Reference Range Interpretation Comments UA RBC (test code = RBCU) 2-5 #/hpf NONE SEEN A UA BACTERIA (test code = BACU) 1+ #/hpf NONE SEEN - US ABDOMEN [id number] 14:28:00 Patient Name: ASHLEY GARCIA Unit No: [id number] EXAMS: CPT CODE: [id number] US ABDOMEN LTD 07915 - US ABDOMEN LTD 03/28/2019 1:32 PM [...] Perkins MD Technologist: Franklin Ford Trnscrbd D/ (1423) [email or web address] Orig Print D/T: S: 03/28/2019 (3820) Probe: [facility] NAME: ASHLEY GARCIA [address] SP[address] PHYS: Jude Horta MDTx [id number] : 1970 AGE: 48 SEX: F LOC: [place] PHONE #: [phone] EXAM DATE: 03/28/2019 STATUS: REG ER FAX #: RAD NO: Page 1 Signed ReportCOMPREHENSIVE METABOLIC PANEL 2019-03-28 14:21:00 Test Item Value Reference Range Interpretation [...] 50-136 N TOTAL (test code = ALKP) [id number] 14:21:00 Test Item Value Reference Range Interpretation Comments LIPASE (test code = LIP) 224 Units/L 73-393 N HCG SERUM [id number] 14:19:00 Test Item Value Reference Range Interpretation Comments HCG SERUM QUAL NEGATIVE NEGATIVE False negativ es may occur (test code = when levels of hCGare below HCGQL) 10 mIU/ml. When is still suspec kain, a new specimenshould be obtained after 48 hours and re-tested.If wa iting 48 hours is not me dically advisable,the t est result should be confi rmed using aquantitative h CG assay. UA RFLX MICROSCOPIC [id number] 14:12:00 Test Item Value Reference Range Interpretation [...] CULTURE NEEDED? (test code = UACULT) UA [id number] 14:12:00 Test Item Value Reference Range Interpretation Comments UA RBC (test code = RBCU) #/hpf NONE SEEN UA RFLX MICROSCOPIC [id number] 14:12:00 Test Item Value Reference Range Interpretation [...] CULTURE NEEDED? (test code = UACULT) UA [id number] 14:12:00 Test Item Value Reference Range Interpretation Comments UA RBC (test code = RBCU) #/hpf NONE SEEN CBC W/AUTO [id number] 14:11:00 Test Item Value Reference Range Interpretation [...] 0.0 X10 3/uL 0.0-0.2 N NRBC#) TISSUE [id number] 15:56:00Surgical Pathology Report Case: [id number] Authorizing Provider: Dilip Luevano MD Collected: 11/17/2017 1351 Ordering Location: [facility] PERIOPERATIVE Received: 11/17/2017 1431 SERVICES Pathologist: Randy Barroso MD Specimen: Disc C3-4, DISC FROM C3-6 VERTEBRAL COLUMN, INTERVERTEBRAL DISCS, C3-6, DISCECTOMIES:FRAGMENTS OF FIBROCARTILAGE WITH MILD DEGENERATIVE CHANGES Signing Pathologist Direct Phone Line: [phone] signed by Randy Barroso MD on 11/19/2017 at 3:56 [id number]; [id number] nucleus pulposus of cervix. Cervical myelopathyDisc C3-4 and C3-6The specimen is received in saline labeled with the patient's information and labeled "disc C3-4 and C3-6" and consistsof small portions of off white fibrocartilaginous tissue measuring 1 x 1 x 0.3 cm in aggregate. Submi tted entirely A1 for decalcification. CG/pl PerformedNP, NEURO INTRAOPERATIVE [id number] 10:49:00Reason for exam:->cervical stenosis INTRAOPERATIVE MONITORING REPORT Patient Name: Ashley Garcia [facility] Surgery Date: 11/17/17 [place] Pro: [id number] Monitoring began at 11:19 and ended at 14:30 Surgeon: Dilip Luevano M.D. Examining Physician : Sheba Wooten M.D. Monitoring Technologist: KRISTA Krishna Procedure: ACDF C3-C6 Stimulation Parameters: Ulnar nerves individually stimulatedat the wrist Rate 3.63Hz, Intensity 30A, Duration 0.3ms Posterior Tibial nerves individually stimulated at the ankle Rate 3.63Hz, Intensity 60mA, Duration 0.3ms Filters 30-500Hz, Notch Off Recording Parameters: CV, CP3, CP4, CPz, and FPzFree-running EEG recorded with bipolar derivation, using modifiedInternational 10/20 placements: C3-FPZ, C4-FPZ Description: Intraoperative neurophysiological [...] Surgeon was aware of all responses in real- time. Free-running EEG remained symmetrical throughout the procedure with no focal changes noted to occur. Conclusion: These results suggest the absence of untoward, secondary effects on the posterior column function as a consequence of this surgical procedure. Sheba Wooten M.D.M50.0, M50.20 BASIC METABOLIC [id number] 08:26:00 Test Item Value Reference Range Interpretation [...] 697) EGFR (BEAKER) (test 84 mL/min/1.73 ESTIMA KAIN GFR IS code = 1092) sq m NOT ACCURATE CREATININE CLEARANCE IN PREDICTING GLOMERULAR FILTRATION RATE . ESTIMATED GFR I S NOT APPLICABLE FOR DIALYSIS PATIEN TS. CBC W/PLT COUNT & AUTO [id number] 08:11:00 Test Item Value Reference Range Interpretation [...] PERCENT (BEAKER) (test code = 2801) [place], [employer] DEV[employer]OP[employer] OFFICER IN OR/30 MINUTE [id number] 14:09:00Reason for exam:- >cervical stenosisFINAL REPORT History: [...] of 3 static images were acquired. Signed: Thiago Silva Verified Date/Time: 11/17/2017 14:09:04 Reading Location: [address] Consult Reading Room [place], [employer] IN OR/30 MINUTE [id number] 12:28:00Reason for exam:->cervical stenosisFINAL REPORT INDICATION: Cervical [...] 0.177 mGy, 0.0453 Gy.cm2, 1 image Signed: Murray Osborn Verified Date/Time: 11/17/2017 12:28:12 Reading Location: [facility] Radiology Reading Room PT/[id number] 12:00:00 Test Item Value Reference Range Interpretation [...] for patients with mechanical heart valves.BASIC METABOLIC [id number] 11:59:00 Test Item Value Reference Range Interpretation [...] 697) EGFR (BEAKER) (test 88 mL/min/1.73 ESTIMA KAIN GFR IS code = 1092) sq m NOT ACCURATE CREATININE CLEARANCE IN PREDICTING GLOMERULAR FILTRATION RATE . ESTIMATED GFR I S NOT APPLICABLE FOR DIALYSIS PATIEN TS. URINALYSIS W/ REFLEX URINE [id number] 11:55:00 Test Item Value Reference Range Interpretation [...] = 2795) CBC W/PLT COUNT & AUTO [id number] 11:45:00 Test Item Value Reference Range Interpretation [...] (test code = 2801) RAD, CHEST, 2 [id number] 11:44:00Reason for Exam:->pre opFINAL REPORT History provided: Preoperative assessment CHEST PA AND LATERAL: Normal cardiomediastinal silhouette. Lungs are fully expanded and clear. CONCLUSION: Normal two-view chest examination. Signed: Pierce Lares MDReport Verified Date/Time: 10/30/2017 11:44:26 Reading Location: [facility] Diagnostic Imaging Reading Room [place] [address] 1.310.12 Notes Date/Time Note Provider Source 2019-03-28 13:30:00-00:00 [facility] ([facility]) OR A CAMPUS OF [facility] EMERGENCY PROVIDER REPORT REPORT#:[id number] REPORT STATUS: Signed DATE:03/28/19 TIME: 1330 PATIENT: ASHLEY GARCIA UNIT #: [id number] ROOM/BED: AGE: 48 SEX: F PCP PHYS: Self Referred SERVICE AUTHOR: Jude Perkins MD * ALL edits or amendments must be made on the el [employer]/computer document * HPI-General Illness Free Text HPI Notes Free Text HPI Notes 48F pt presents to ED c/o vomiting and diarrhea, onset 3 days ago. Pt states that she had eaten taco treviño 3 days ago and started feeling these symptoms and thought it would have been f ood poisoning, but decided to come to ED instead. Pt states she has felt fever, and fatigue but denie s cough, and sore throat. Pt denies having any DM, or HTN. Pt states she has had neck surgery and breast reduction in the last year. Pt denies smoking or drinking. General Confirmed Patient Yes Patient Type New patient Initial Greet Date/Time 03/28/19 1322 Presentation Chief Complaint Abdominal pain, Diarrhea, Fever, Vomiting Hx Obtained From Patient Sudden in Onset? Yes Onset Occurred Days ago (3) Symptom Duration Since onset Progression since Onset Unchanged Radiation No: Does not radiate. Exacerbated by Nothing Relieved by Nothing Portions of this section were scribed by Lissett Cristina on 03/28/19 at 1336 Review of Systems ROS Statements All systems rev neg except as marked. Free Text ROS Notes Free Text ROS Notes Constitutional: no fever Eyes: no drainage ENT: no runny nose CV: no chest pain Resp: no SOB GI: vomiting : no dysuria Skin: no rash Hem: no petechiae Allergy: no hives Musculoskeletal: no leg swelling Neurological: no slurred speech Pysch: No Suicide ideation, No homicidal ideatio n Portions of this section were scribed by Lissett Cristina on 03/28/19 at 1336 Past Medical History - Adult Stated Complaint VOMITING/DIARRHEA Allergies Coded Allergies: No Known Allergies (03/28/19) Home Medications Reported Medications No Known Home Medications Review of Nursing Notes Rev avail, and agree Additional Surgical History breast reduction, neck surgery Portions of this section were scribed by Lissett Cristina on 03/28/19 at 1336 Physical Exam Vital Signs Vital Signs First Documented: Result Date Time Pulse Ox 98 03/28 1310 B/P 135/86 03/28 1310 B/P Mean 102 03/28 1310 Temp 36.4 03/28 1310 Pulse 74 03/28 1310 Resp 16 03/28 1310 Last Documented: Result Date Time Pulse Ox 99 03/28 1531 B/P 143/90 03/28 1531 B/P Mean 107 03/28 1531 Pulse 63 03/28 1531 Temp 36.4 03/28 1310 Resp 16 03/28 1310 Review of Vital Signs Reviewed Free Text PE Notes Free Text PE Notes CONSTITUTIONAL: Alert and or iented and responds appropriately to questions. Well -appearing; well-nourished HEAD: Normocephalic; atraumatic EYES: Conjunctiva non-injected ENT: moist mucous membranes NECK: Supple, full rom, no signs of neck stiffne ss or pain. CARD: No Murmurs RESP: no respiratory distress ABD/GI: non-distended, nontender, RUQ pain BACK: normal ROM, no cva tenderness EXT: appear atraumatic SKIN: Normal color, no rash NEURO: Moves all extremities equally, A/O x4 PSYCH: The patient's mood and manner are appropr iate. Grooming and personal hygiene are appropriate Portions of this section were scribed by Lissett Cristina on 03/28/19 at 1336 Interpretation Diagnostics Lab Results Interpretation Results Laboratory Tests 03/28/19 1351: [Embedded Image Not Available] Laboratory Tests: 03/28 03/28 1351 1351 Chemistry Sodium (133 - 145 MMOL/L) 141 Potassium (3.6 - 5.2 MMOL/L) 3.8 Chloride (100 - 108 MMOL/L) 104 Carbon Dioxide (22 - 32 MMOL/L) 30 BUN (6 - 20 MG/DL) 16 Creatinine (0.60 - 1.00 MG/DL) 0.81 Estimated GFR (MDRD) (58 - 135) 75 Glucose (65 - 99 MG/DL) 91 Calcium (8.7 - 10.5 MG/DL) 9.1 Total Bilirubin (0.0 - 1.0 MG/DL) 0.5 AST (15 - 37 Units/L) 29 ALT (30 - 65 Units/L) 62 Alkaline Phosphatase (50 - 136 Units/L) 86 Total Protein (6.4 - 8.2 G/DL) 7.7 Albumin (3.4 - 5.0 G/DL) 4.2 Globulin (1.5 - 3.8 G/DL) 3.5 Albumin/Globulin Ratio (1.1 - 2.2) 1.2 Lipase (73 - 393 Units/L) 224 HCG, Qual (NEGATIVE) NEGATIVE Hematology WBC (4.80 - 10.80 x10 3/uL) 6.22 RBC (4.2 - 5.4 x10 6/uL) 5.00 Hgb (12.0 - 16.0 G/DL) 14.5 Hct (37 - 47 %) 44.9 MCV (81 - 99 FL) 89.8 MCH (27 - 31 PG) 29.0 MCHC (33 - 37 G/DL) 32.3 L RDW Coeff of Ladi (11.5 - 14.5 %) 13.0 Plt Count (150 - 450 x10 3/uL) 262 MPV (7.4 - 10.4 FL) 10.5 H Neut % (Auto) (42 - 86 %) 52.9 Lymph % (Auto) (24 - 44 %) 37.3 [place] % (Auto) (0.0 - 4.0 %) 7.1 H Eos % (Auto) (0.0 - 2.7 %) 1.6 Baso % (Auto) (0.0 - 0.5 %) 0.8 H Eos # (Auto) (0.0 - 0.5 x10 3/uL) 0.10 Baso # (Auto) (0.0 - 0.2 x10 3/uL) 0.05 Abs Immat Gran (auto) (0.00 - 0.03 x10 3/uL) 0. 02 Absolute Neuts (auto) (1.8 - 7.7 x10 3/uL) 3.29 Absolute Lymphs (auto) (1.0 - 4.8 x10 3/uL) 2.3 2 Absolute Monos (auto) (0.0 - 0.8 x10 3/uL) 0.44 Absolute Nucleated RBC (0.0 - 0.2 X10 3/uL) 0.0 Immature Gran % (0.0 - 2.0 %) 0.3 Nucleated RBC % (0.0 - 0.0 %) 0.0 03/28 1350 Urines Ur Spec Description Clean Catch Urine Color (YELLOW) YELLOW Urine Appearance (CLEAR) HAZY Urine pH (5.5 - 7.0) 5.0 L Ur Specific [place] (1.001 - 1.035) 1.025 Urine Protein (NEGATIVE mg/dL) 25 H Urine Glucose (UA) (NEGATIVE mg/dL) NEGATIVE Urine Ketones (NEGATIVE mg/dL) 5 H Urine Blood (NEGATIVE) 3+ H Urine Nitrite (NEGATIVE) NEGATIVE Urine Bilirubin (NEGATIVE) 1+ H Urine Urobilinogen (NORMAL mg/dL) 1.0 Ur Leukocyte Esterase (NEGATIVE) 2+ H Urine RBC (NONE SEEN #/hpf) 2-5 H Urine WBC (<10 #/hpf) 10 - 20 A Ur Squamous Epith Cells (<100 #/lpf) 0 - 20 Urine Bacteria (NONE SEEN #/hpf) 1+ Urine Culture Screen Criteria met Urine Comment VOLUME 10-12 ML Microbiology: Date/Time Procedure - Status Source Growth 03/28 1429 Urine Culture - COMP URINE Recent Impressions: ULTRASOUND - US ABDOMEN LTD 03/28 1330 Report Impression - Status: SIGNED Entered: 03/28/2019 1431 IMPRESSION: Normal gallbladder ultrasound. Impression By: [email or web address] Jimi Ni MD Lab Statement Laboratory studies reviewed and considered in [facility] medical decision-making. Portions of this section were scribed by Lissett Cristina on 03/28/19 at 1336 Re-Evaluation MDM Free Text MDM Notes Free Text MDM Notes 48 yo with vomiting and abdominal pain. patients US is negative for leif. patient does not have elevated wbc or fever whic h is reassuring. patients electrolytes are fairly unre markable. patient does have UTI which i will treat. patients rlq is nontender, t herefore do not suspect appy at this point. patient was able to tolerate po with no problem. patient lives with family who can bring patient back if needed. Discussed the diagnosis and results of the work up with the patient. Answered all questions. Verbal precautions given. Verbal med precautions given. Patient understands and agrees with plan. Will follow up with doctor. Re-Evaluation/Progress #1 Text/Dict Note 1500 patient still awaiting US. time to dispo de layed because of this. ED Course Medication(s) Ordered Medication(s) Ordered: Central Nervous System Agents Sig/Golden Start time Last Medication Dose Route Stop Time Status Admin Acetaminophen 1,000 MG X1ED STA 03/28 1332 DC 0 03/28 PO 03/28 1333 1438 Gastrointestinal Drugs Sig/Golden Start time Last Medication Dose Route Stop Time Status Admin Al Hydrox/Mg Hydrox/ 30 ML X1ED STA 03/28 1332 DC 03/28 Simethicone PO 03/28 1333 1439 Ondansetron HCl 4 MG X1ED STA 03/28 1332 DC IV 03/28 1333 1439 Portions of this section were scribed by Lissett Cristina on 03/28/19 at 1336 Patient Discharge Departure Vital Signs/Condition Vital Signs First Documented: Result Date Time Pulse Ox 98 03/28 1310 B/P 135/86 03/28 1310 B/P Mean 102 03/28 1310 Temp 36.4 03/28 1310 Pulse 74 03/28 1310 Resp 16 03/28 1310 Last Documented: Result Date Time Pulse Ox 99 03/28 1531 B/P 143/90 03/28 1531 B/P Mean 107 03/28 1531 Pulse 63 03/28 1531 Temp 36.4 03/28 1310 Resp 16 03/28 1310 All vital signs available at the time of this en try have been reviewed. Clinical Impression Clinical Impression Primary Impression: Abdominal pain Disposition Decision Discharge )( Discharged to Home Yes )( Time 1504 )( Date 03/28/19 Discharge/Care Plan Counseled Regarding Diagnosi s, Lab results, Imaging studies, Prescriptions, Need for follow-up, When to return to ED Prescriptions merna blair macrobid Supervising Physician Note Scribe Statement Lissett Cristina, 03/28/19 1336, scribing for and in the presence of [Dr. Perkins ]. Signed By: Lissett Cirstina, 03/28/19 1336 Provider Scribed Statement I personally performed the s ervices described in this documentation and reviewed the documentation that was dictated to the scrib e(s) in my presence, and it accurately records my words and actions. Mark Perkins, 03/31/19 Portions of this section were scribed by Lissett Cristina on 03/28/19 at 1336 Electronically Signed by Jude Perkins MD on 01/18 at 5552 RPT #:[id number] END OF REPORT
--- NOTE | 2023-06-03 14:16 | RAD REPORT ---
EXAM DESCRIPTION: Bobby Alvarado And Pita (2 Views)06/03/2023 2:05 pm CLINICAL HISTORY: Cough COMPARISON: 2021 FINDINGS: The lungs appear clear of acute infiltrate. The heart is normal size IMPRESSION: No acute abnormalities displayed
--- NOTE | 2023-06-03 14:31 | ER ---
Nurse's Notes [facility] Name: Ashley Mora Age: 53 yrs Sex: Female : 1970 Arrival Date: 06/03/2023 Time: 13:31 Bed 12 Private MD: Diagnosis: Cough;Dyspnea, unspecified Presentation: 06/03 13:39 Chief complaint: Patient states: Difficulty breathing X 4 days. Pt reports it getting ld1 worse over past two days. SpO2 99% RA. Coronavirus screen: At this time, the client does not indicate any symptoms associated with coronavirus-19. Ebola Screen: No symptoms or risks identified at this time. Initial Sepsis Screen: Does the patient meet any 2 criteria? No. Patient's initial sepsis screen is negative. Does the patient have a suspected source of infection? No. Patient's initial sepsis screen is negative. Risk Assessment: Do you want to hurt yourself or someone else? Patient reports no desire to harm self or others. Onset of symptoms was June 03, 2023. 13:39 Method Of Arrival: Ambulatory ld1 13:39 Acuity: IKER 3 ld1 Triage Assessment: 13:40 General: Appears in no apparent distress. comfortable, Behavior is cooperative, ld1 anxious. Pain: Denies pain. EENT: No signs and/or symptoms were reported regarding the EENT system. Neuro: Level of Consciousness is awake, alert, obeys commands, Oriented to person, place, time, situation. Cardiovascular: Capillary refill < 3 seconds Patient's skin is warm and dry. Respiratory: Reports shortness of breath Airway is patent Respiratory effort is even, unlabored, Onset: The symptoms/episode began/occurred gradually, the patient has mild shortness of breath. GI: Abdomen is round non-distended. : No signs and/or symptoms were reported regarding the genitourinary system. Derm: No signs and/or symptoms reported regarding the dermatologic system. Musculoskeletal: No signs and/or symptoms reported regarding the musculoskeletal system. Historical: - Allergies: 13:40 Codeine; "makes me feel high"; ld1 - PMHx: 13:40 Anxiety; ld1 - PSHx: 13:40 breast augmentation; neck; ld1 - Immunization history:: Adult Immunizations up to date, Client reports receiving the 2nd dose of the Covid vaccine. - Social history:: Smoking status: Patient denies any tobacco usage or history of. Patient/guardian denies using alcohol. - Family history:: not pertinent. - Hospitalizations: : No recent hospitalization is reported. Screenin:43 [facility] ED Fall Risk Assessment (Adult) History of falling in the last 3 months, cm10 including since admission No falls in past 3 months (0 pts) Confusion or Disorientation No (0 pts) Intoxicated or Sedated No (0 pts) Impaired Gait No (0 pts) Mobility Assist Device Used No (0 pt) Altered Elimination No (0 pt) Score/Fall Risk Level 0 - 2 = Low Risk Oriented to surroundings, Maintained a safe environment. Abuse screen: Denies threats or abuse. Denies injuries from another. Nutritional screening: No deficits noted. Tuberculosis screening: No symptoms or risk factors identified. Assessment: 14:42 General: Appears in no apparent distress. comfortable, Behavior is calm, cooperative. cm10 Neuro: No deficits noted. Level of Consciousness is awake, alert, Oriented to person, place, time, situation. Cardiovascular: No deficits noted. Cardiovascular: Rhythm is. Respiratory: Airway is patent Respiratory effort is even, unlabored, Respiratory pattern is regular, symmetrical. Derm: No deficits noted. Skin is intact, Skin is pink, warm \\T\\ dry. Vital Signs: 13:39 BP 138 / 102; Pulse 78; Resp 18; Temp 98.3(O); Pulse Ox 99% on R/A; Weight 81.65 kg; ld1 Height 5 ft. 4 in. ; Pain 0/10; 14:42 BP 153 / 93; Pulse 66; Resp 16; Pulse Ox 97% on R/A; Pain 0/10; cm10 13:39 Body Mass Index 30.90 (81.65 kg, 162.56 cm) ld1 13:39 Pain Scale: Adult ld1 14:42 Pain Scale: Adult cm10 ED Course: 13:31 Patient arrived in ED. am2 13:37 Brock Hidalgo MD is Attending Physician. rn 13:40 Triage completed. ld1 13:40 Arm band placed on right wrist. ld1 14:05 Cha Pizarro, DIANA is Primary Nurse. cm10 14:07 XRAY Chest Pa And Lat (2 Views) In Process Unspecified. EDMS 14:43 Patient has correct armband on for positive identification. cm10 14:43 No provider procedures requiring assistance completed. Patient did not have IV access cm10 during this emergency room visit. Administered Medications: No medications were administered Medication: 14:43 VIS not applicable for this client. cm10 Outcome: 14:30 Discharge ordered by . rn 14:43 Discharged to home ambulatory. cm10 14:43 Condition: good 14:43 Discharge instructions given to patient, Instructed on discharge instructions, follow up and referral plans. Demonstrated understanding of instructions, follow-up care. 14:44 Patient left the ED. cm10 Signatures: Dispatcher [employer] EDMS Brock Hidalgo MD MD rn Moreno, Amanda am2 Sims, Lauren, RN RN ld1 Cha Pizarro RN RN cm10
--- NOTE | 2023-06-03 14:31 | EDPHYS ---
Physician Documentation [facility] Name: Ashley Mora Age: 53 yrs Sex: Female : 1970 Arrival Date: 06/03/2023 Time: 13:31 Bed 12 Private MD: ED Physician Brock Hidalgo HPI: 06/03 14:20 This 53 yrs old Female presents to ER via Ambulatory with complaints of Breathing rn Difficulty. 14:20 The patient has shortness of breath at rest. Onset: The symptoms/episode began/occurred rn 2 day(s) ago. Duration: The symptoms are intermittent. The patient's shortness of breath is aggravated by nothing, is alleviated by nothing. Associated signs and symptoms: Pertinent positives: productive cough, Pertinent negatives: chest pain, fever, hemoptysis. Severity of symptoms: At their worst the symptoms were mild in the emergency department the symptoms are unchanged. The patient has not experienced similar symptoms in the past. The patient has been recently seen at an urgent care. Pt reports seen recently at urgent care and prescribed abx, comes in today for cough and feeling sob. Denies hemoptysis. No hx of dvt/PE. Has hx of anxiety. Reports anxiety was getting bad and had to make sure she was ok. No fever. No trauma. . Historical: - Allergies: 13:40 Codeine; "makes me feel high"; ld1 - PMHx: 13:40 Anxiety; ld1 - PSHx: 13:40 breast augmentation; neck; ld1 - Immunization history:: Adult Immunizations up to date, Client reports receiving the 2nd dose of the Covid vaccine. - Social history:: Smoking status: Patient denies any tobacco usage or history of. Patient/guardian denies using alcohol. - Family history:: not pertinent. - Hospitalizations: : No recent hospitalization is reported. ROS: 14:20 Constitutional: Negative for fever, chills, and weight loss, Cardiovascular: Negative rn for chest pain, palpitations, and edema, Respiratory: + sob, + cough Abdomen/GI: Negative for abdominal pain, nausea, vomiting, diarrhea, and constipation, MS/Extremity: Negative for injury and deformity, Skin: Negative for injury, rash, and discoloration, Neuro: Negative for headache, weakness, numbness, tingling, and seizure. Exam: 14:20 Constitutional: This is a well developed, well nourished patient who is awake, alert, rn and in no acute distress. Head/Face: Normocephalic, atraumatic. Cardiovascular: Regular rate and rhythm. No pulse deficits. Respiratory: No increased work of breathing, no retractions or nasal flaring. Clear bilateral breath sounds. Abdomen/GI: Soft, non-tender Skin: Warm, dry MS/ Extremity: Pulses equal, no cyanosis. Neuro: Awake and alert, GCS 15 Vital Signs: 13:39 BP 138 / 102; Pulse 78; Resp 18; Temp 98.3(O); Pulse Ox 99% on R/A; Weight 81.65 kg; ld1 Height 5 ft. 4 in. ; Pain 0/10; 14:42 BP 153 / 93; Pulse 66; Resp 16; Pulse Ox 97% on R/A; Pain 0/10; cm10 13:39 Body Mass Index 30.90 (81.65 kg, 162.56 cm) ld1 13:39 Pain Scale: Adult ld1 14:42 Pain Scale: Adult cm10 MDM: 13:37 Patient medically screened. rn 14:20 Differential diagnosis: Bronchitis pneumonia, Pneumothorax anxiety. Data reviewed: rn vital signs, nurses notes, radiologic studies, plain films, and as a result, I will discharge patient. Counseling: I had a detailed discussion with the patient and/or guardian regarding: the historical points, exam findings, and any diagnostic results supporting the discharge/admit diagnosis, radiology results, the need for outpatient follow up, to return to the emergency department if symptoms worsen or persist or if there are any questions or concerns that arise at home. Special discussion: I discussed with the patient/guardian in detail that at this point there is no indication for admission to the hospital. It is understood, however, that if the symptoms persist or worsen the patient needs to return immediately for re-evaluation. 14:20 ED course: Clear CXR, no oxygen requirement, patient happy to here good results. Will rn dc home with continuation of her current abx and return precautions. . 06/03 13:44 Order name: XRAY Chest Pa And Lat (2 Views); Complete Time: 14:34 rn Administered Medications: No medications were administered Disposition Summary: 06/03/23 14:30 Discharge Ordered Location: Home rn Problem: new rn Symptoms: have improved rn Condition: Stable rn Diagnosis - Cough rn - Dyspnea, unspecified rn Followup: rn - With: Private Physician - When: As needed - Reason: Recheck today's complaints, Re-evaluation by your physician Discharge Instructions: - Discharge Summary Sheet rn - Shortness of Breath, Adult rn - Cough, Adult rn Forms: - Medication Reconciliation Form rn - Thank You Letter rn - Antibiotic rn informatics - Prescription Opioid Use rn - [email or web address] rn Signatures: Dispatcher [employer] Brock Gao MD MD rn Sims, Lauren, RN RN ld1
[2023-06-03 15:12] VITALS: TEMP 98.3
[2023-06-03 15:13] VITALS: BP 153/93; O2SAT 97
== END 2023-06-03 14:44 | disposition home or self-care (01) ==
LOC: ER 13:31
DX: R05.9 Cough, unspecified (principal); R06.00 Dyspnea, unspecified; F41.9 Anxiety disorder, unspecified; Z88.5 Allergy status to narcotic agent; Z98.82 Breast implant status
CPT/HCPCS: 71046; 99283

== ENCOUNTER → 2024-01-12 | Emergency (ER) | payer OTHER ==
[~2024-01-12] MED LIST: HYDROCODONE/APAP 5/325 MG TAB ONE; IBUPROFEN 400 MG TAB ONE
--- NOTE | 2024-01-12 03:09 | ER ---
Nurse's Notes [facility] Name: Ashley Mora Age: 53 yrs Sex: Female : 1970 Arrival Date: 01/12/2024 Time: 00:06 Bed [id number] Private MD: Diagnosis: Contusion of right elbow-from fall Presentation: 01/12 00:20 Chief complaint: Patient states: Pt states she missed the last step on a ladder and tl4 fell onto hardwood floor on her right arm. Pt c/o right elbow pain and swelling. No LOC. Coronavirus screen: At this time, the client does not indicate any symptoms associated with coronavirus-19. Ebola Screen: No symptoms or risks identified at this time. Initial Sepsis Screen: Does the patient meet any 2 criteria? No. Patient's initial sepsis screen is negative. Does the patient have a suspected source of infection? No. Patient's initial sepsis screen is negative. Risk Assessment: Do you want to hurt yourself or someone else? Patient reports no desire to harm self or others. Onset of symptoms was January 12, 2024. 00:20 Method Of Arrival: Ambulatory tl4 00:20 Acuity: IKER 4 tl4 Triage Assessment: 00:25 General: Appears in no apparent distress. Behavior is calm, cooperative. Pain: tl4 Complains of pain in right arm. EENT: No deficits noted. No signs and/or symptoms were reported regarding the EENT system. Neuro: No deficits noted. Cardiovascular: No deficits noted. Respiratory: No deficits noted. GI: No deficits noted. No signs and/or symptoms were reported involving the gastrointestinal system. : No deficits noted. No signs and/or symptoms were reported regarding the genitourinary system. Derm: No deficits noted. No signs and/or symptoms reported regarding the dermatologic system. Musculoskeletal: Reports pain in right arm. Historical: - Allergies: 00:24 No Known Allergies; tl4 - PMHx: 00:24 Anxiety; tl4 - PSHx: 00:24 breast augmentation; neck; tl4 - Immunization history:: Adult Immunizations unknown. - Social history:: Smoking status: Patient denies any tobacco usage or history of. - Immunization history: Last tetanus immunization: unknown. Screenin:00 [facility] ED Fall Risk Assessment (Adult) History of falling in the last 3 months, jj7 including since admission Yes- single mechanical fall (1 pt) Confusion or Disorientation No (0 pts) Intoxicated or Sedated No (0 pts) Impaired Gait No (0 pts) Mobility Assist Device Used No (0 pt) Altered Elimination No (0 pt) Score/Fall Risk Level 0 - 2 = Low Risk Oriented to surroundings, Maintained a safe environment, Educated pt \T\ family on fall prevention, incl call for assistance when getting out of bed. Abuse screen: Denies threats or abuse. Nutritional screening: No deficits noted. Tuberculosis screening: No symptoms or risk factors identified. Assessment: 03:00 General: Appears in no apparent distress. comfortable, Behavior is calm, cooperative, jj7 appropriate for age. Pain: Complains of pain in right arm. Musculoskeletal: Reports pain in right arm. Vital Signs: 00:20 BP 109 / 79; Pulse 85; Resp 99; Temp 97.4; Pulse Ox 100% on R/A; Weight 80.74 kg; tl4 Height 5 ft. 5 in. ; Pain 5/10; 03:00 BP 112 / 82; Pulse 81; Resp 17; Pulse Ox 99% ; jj7 04:00 BP 109 / 76; Pulse 86; Resp 17; Pulse Ox 100% ; jj7 05:00 BP 114 / 82; Pulse 79; Resp 16; Pulse Ox 100% ; jj7 00:20 Body Mass Index 29.62 (80.74 kg, 165.1 cm) tl4 00:20 Pain Scale: Adult tl4 ED Course: 00:10 Patient arrived in ED. gm2 00:24 Triage completed. tl4 00:26 Arm band placed on left wrist. tl4 00:57 Gerry Mccarthy PA is PHCP. cp 00:57 Curly Nicole MD is Attending Physician. cp 02:30 XRAY Elbow RIGHT 3 view In Process Unspecified. EDMS 03:00 Patient has correct armband on for positive identification. Bed in low position. Call jj7 light in reach. 03:00 No provider procedures requiring assistance completed. Patient did not have IV access jj7 during this emergency room visit. 03:08 Axel Beltrán MD is Referral Physician. cp 04:02 Orthoglass splint: posterior long arm splint applied to the right arm. Sling applied to oe right arm. Administered Medications: 03:22 Drug: Ibuprofen PO 800 mg PO once Route: PO; jw7 05:00 Follow up: Response: Pain is decreased jj7 03:25 Not Given (Patient Refused): hydrocodone-acetaminophen5 mg-325 mg 1 tabs PO once jj7 Medication: 03:00 VIS not applicable for this client. jj7 Outcome: 03:08 Discharge ordered by . robert 05:00 Discharged to home ambulatory, jj7 05:00 Condition: good 05:00 Discharge instructions given to patient, Instructed on discharge instructions, follow up and referral plans. medication usage, Demonstrated understanding of instructions, follow-up care, medications, Prescriptions given X 1, 05:50 Patient left the ED. jj7 Signatures: Dispatcher [employer] EDMS Gerry Mccarthy PA PA cp Espinosa, Orlando oe Waits, Jodi RN RN jw7 Wicho Neff RN RN jj7 Yanni Macario 2 Shaun Hardy RN RN tl4 Corrections: (The following items were deleted from the chart) 03:23 03:22 HYDROcodone-acetaminophen PO 5 mg-325 mg 1 tabs PO jw7 jw7
--- NOTE | 2024-01-12 03:09 | EDPHYS ---
Physician Documentation [facility] Name: Ashley Mora Age: 53 yrs Sex: Female : 1970 Arrival Date: 01/12/2024 Time: 00:06 Bed [id number] Private MD: ED Physician Curly Nicole HPI: 01/12 02:00 This 53 yrs old Female presents to ER via Ambulatory with complaints of Fall Injury, cp fell off ladder and injured right arm. 02:00 Details of fall: The patient fell from a height, from a ladder, approximately 4 feet. cp Onset: The symptoms/episode began/occurred today. Historical: - Allergies: 00:24 No Known Allergies; tl4 - PMHx: 00:24 Anxiety; tl4 - PSHx: 00:24 breast augmentation; neck; tl4 - Immunization history:: Adult Immunizations unknown. - Social history:: Smoking status: Patient denies any tobacco usage or history of. - Immunization history: Last tetanus immunization: unknown. ROS: 02:05 MS/extremity: Positive for pain, of the right elbow, Negative for deformity, cp 02:05 Constitutional: Negative for body aches, chills, cp 02:05 Neck: Negative for pain with movement, pain at rest, 02:05 Cardiovascular: Negative for chest pain, palpitations, 02:05 Respiratory: Negative for cough, shortness of breath, wheezing, 02:05 Abdomen/GI: Negative for abdominal pain, nausea, vomiting, and diarrhea, 02:05 Back: Negative for pain at rest, pain with movement, 02:05 Neuro: Negative for headache, numbness, weakness, 02:05 All other systems are negative, cp Exam: 02:10 Constitutional: The patient appears in no acute distress, alert, awake, well developed, cp well nourished, uncomfortable, 02:10 Head/Face: Normocephalic, atraumatic. cp 02:10 Chest/axilla: Inspection: normal, 02:10 Cardiovascular: Rate: normal, Rhythm: regular, Pulses: Pulses are 2+ in right radial artery. 02:10 Musculoskeletal/extremity: Extremities: noted in the right elbow: lateral side tenderness, pain with passive ROM, 02:10 Neck: C-spine: vertebral tenderness, is not appreciated, crepitus, is not appreciated, cp ROM/movement: is normal, is supple, without pain, no range of motions limitations, 02:10 Respiratory: the patient does not display signs of respiratory distress, Respirations: normal, 02:10 Abdomen/GI: Exam negative for discomfort, distension, guarding, Inspection: abdomen appears normal, 02:10 Back: pain, is absent, ROM is normal, 02:10 Neuro: Orientation: to person, place \T\ time. Mentation: is normal, Motor: moves all fours, strength is normal, Sensation: is normal, Vital Signs: 00:20 BP 109 / 79; Pulse 85; Resp 99; Temp 97.4; Pulse Ox 100% on R/A; Weight 80.74 kg; tl4 Height 5 ft. 5 in. ; Pain 5/10; 03:00 BP 112 / 82; Pulse 81; Resp 17; Pulse Ox 99% ; jj7 04:00 BP 109 / 76; Pulse 86; Resp 17; Pulse Ox 100% ; jj7 05:00 BP 114 / 82; Pulse 79; Resp 16; Pulse Ox 100% ; jj7 00:20 Body Mass Index 29.62 (80.74 kg, 165.1 cm) tl4 00:20 Pain Scale: Adult tl4 Procedures: 03:15 Splinting: Splint applied to right elbow using Orthoglass splint, sling, applied by cp nurse. Examined by me, post splint application: neurovascular intact, Patient tolerated well. MDM: 00:58 Patient medically screened. cp 20:34 Differential diagnosis: abrasion, closed head injury, contusion, fracture, laceration, sp4 multiple trauma, sprain, strain. Data reviewed: vital signs, nurses notes, radiologic studies, plain films. 01/12 01:54 Order name: XRAY Elbow RIGHT 3 view cp 01/12 01:54 Order name: Sling; Complete Time: 03:45 cp 01/12 03:05 Order name: Splint - Elbow - Posterior; Complete Time: 03:45 cp Administered Medications: 03:22 Drug: Ibuprofen PO 800 mg PO once Route: PO; jw7 05:00 Follow up: Response: Pain is decreased jj7 03:25 Not Given (Patient Refused): hydrocodone-acetaminophen5 mg-325 mg 1 tabs PO once jj7 Disposition: 05:26 Co-signature as Attending Physician, Curly Nicole MD I agree with the assessment sp4 and plan of care. I reviewed the patient's care provided by the Advanced Practice Provider and agree with the diagnosis and treatment plan. Disposition Summary: 01/12/24 03:08 Discharge Ordered Notes: Location: Home cp Problem: new cp Symptoms: have improved cp Condition: Stable cp Diagnosis - Contusion of right elbow - from fall cp Followup: cp - With: Axel Beltrán MD - When: 5 - 6 days - Reason: Recheck today's complaints Discharge Instructions: - Discharge Summary Sheet cp - Elbow Contusion cp Forms: - Medication Reconciliation Form cp - Thank You Letter cp - Antibiotic Education cp - Prescription Opioid Use cp - Patient Portal Instructions cp - Leadership Thank You Letter cp Prescriptions: - Naprosyn 500 mg Oral Tablet - take 1 tablet ORAL route 2 times per day take with food; 30 tablet; Refills: 0, cp Product Selection Permitted Signatures: Dispatcher [employer] EDMS Gerry Mccarthy PA PA cp Cheyenne Vergara RN RN jw7 Wicho Neff RN RN jj7 Curly Nicole MD MD sp4 Shaun Hardy RN RN tl4
[2024-01-12 06:03] VITALS: TEMP 97.4
[2024-01-12 06:23] VITALS: BP 114/82; O2SAT 100
--- NOTE | 2024-01-12 12:51 | RAD REPORT ---
EXAM DESCRIPTION: Elbow Right 3 View CLINICAL HISTORY: Fall from ladder COMPARISON: None TECHNIQUE: 3 views of the right elbow. FINDINGS: Normal mineralization. No acute fracture or dislocation. Joint spaces are maintained. IMPRESSION: No acute bony finding. Electronically signed by: Radha Enriquez MD 01/12/2024 03:17 AM ED CASE MANAGER Due to temporary technical issues with the PACS/Fluency reporting system, reports are being signed by the in house radiologist without review as a courtesy to ensure prompt reporting. The interpreting r adiologist is fully responsible for the content of the report.
== END ==
LOC: ER 00:06
PROC: 2W3LX1Z Immobilization of Right Lower Extremity using Splint (ICD-10-PCS; principal; 2024-01-12)
DX: S50.01XA Contusion of right elbow, initial encounter (principal); W11.XXXA Fall on and from ladder, initial encounter; Z98.82 Breast implant status